=== PATIENT | male | born 1945 ===

== ENCOUNTER 2024-09-30 08:19 | Outpatient (AMB) | payer OTHER, SELFPAY ==
--- NOTE | 2024-09-30 08:28 | A.OFFVIS_ITS ---
Vital Signs 09/30/24 08:29 Height 5 ft 9 in Weight 258 lb 6.108 oz BMI 38.2 BP 128/64 Blood Pressure Location Lt brachial Position Sitting Pulse 68 Pulse Source Pulse Oximeter Pulse Oximetry (%) 96 Oxygen Delivery Method Room Air Intake Visit Reasons: arthritis/Tel # Inactive Intake Note: Patient presents follow up on arthritis today. He states the pain is in his hands, lower back, knees, progressively getting worse. Allergies NSAIDS (Non-Steroidal Anti-Inflamma Adverse Reaction (Unknown, Verified 09/30/24 08:37) rectal bleeding HPI HPI arthritis/Tel # Inactive: Details: He had no benefit on low-dose gabapentin up titrated to 200 mg in the morning and 100 mg at night with directions from PCP. He continues to have pain in multiple joints especially his knees and lower back. Review of Systems Const All systems reviewed & are unremarkable except as noted in HPI and below Physical Exam Vital Signs: Last Vital Signs Pulse 68 09/30/24 08:29 BP 128/64 09/30/24 08:29 Pulse Ox 96 09/30/24 08:29 Oxygen Delivery Method Room Air 09/30/24 08:29 BMI result Body Mass Index 38.2 Office Procedures AMB Joint Injection/Aspiration Joint Injection/Aspiration Primary Site: right knee Prep: site was prepped using aseptic technique Injected: 40 mg of, Kenalog, with 1 mL of and 1% plain lidocaine Procedure: The patient tolerated the procedure well Coding 08136 - Large joint Additional procedure code (CPT) needed (Modifier needed for bilateral procedure) AMB Joint Injection/Aspiration Joint Injection/Aspiration Primary Site: left knee Prep: site was prepped using aseptic technique Injected: 40 mg of, Kenalog and with 1 mL of Procedure: The patient tolerated the procedure well Coding 82391 - Large joint Additional procedure code (CPT) needed (modifier needed) Office Meds Kenalog 40 mg/mL suspension for injection Performing Provider: Ashu Collier MD Performing Location: [facility] Administered by: Ashu Collier MD on 10/01/24 12:28 Dose Route Admin Location Dispensed Lot Number Expiration Date [facility] 40 mg intra-articular [place] [id number] [employer] lidocaine (PF) 10 mg/mL (1 %) injection solution Performing Provider: Ashu Collier MD Performing Location: [facility] Administered by: Ashu Collier MD on 10/01/24 12:28 Dose Route Admin Location Dispensed Lot Number Expiration Date [facility] Representative 10 mg Infiltration 2 mL [id number] [employer] Kenalog 40 mg/mL suspension for injection Performing Provider: Ashu Collier MD Performing Location: [facility] Administered by: Ashu Collier MD on 10/01/24 12:28 Dose Route Admin Location Dispensed Lot Number Expiration Date [facility] Representative 40 mg intra-articular 1 mL AP [id number] [employer] lidocaine (PF) 10 mg/mL (1 %) injection solution Performing Provider: Ashu Collier MD Performing Location: [facility] Administered by: Ashu Collier MD on 10/01/24 12:28 Dose Route Admin Location Dispensed Lot Number Expiration Date [facility] Representative 10 mg Infiltration 2 mL [id number] [facility] Assessment & Plan Assessment & Plan (1) Generalized osteoarthritis: Comment: He has osteoarthritis affecting his hands, bilateral knees and L-spine. He is agreeable to try bilateral knee cortisone injections this visit. We will consider higher dose of gabapentin next visit to treat generalized pain from ost eoarthritis as it is indicated to treat chronic pain from osteoarthritis affecting the knees and back. Code(s): M15.9 - Polyosteoarthritis, unspecified Category: Medical Plan: Bilateral knee cortisone injections were given this visit I will consider starting gabapentin 300 mg b.i.d. and up titrating as he tolerates to better control back and knee pain next visit Return to clinic in 3 months (2) Osteoarthritis of knees, bilateral: Comment: Pain is uncontrolled. Code(s): M17.0 - Bilateral primary osteoarthritis of knee Category: Medical Qualifiers: Osteoarthritis type: primary Qualified Code(s): M17.0 - Bilateral primary osteoarthritis of knee Plan: Bilateral knee cortisone injections given this visit Return to clinic in 3 months (3) Lumbar spondylosis: Comment: Failed Tylenol, PT for back strengthening, L-spine cortisone injections and radiofrequency ablation treated by pain management. He did not have benefit on low-dose gabapentin. Contraindication to oral NSAIDs due to history of IBD. Code(s): M47.816 - Spondylosis without myelopathy or radiculopathy, lumbar region Category: Medical Plan: I will consider prescribing higher dose of gabapentin next visit. He prefers to have cortisone injections this visit to relieve knee pain. Return to clinic in 3 months. (4) Gout: Comment: Controlled on allopurinol Code(s): M10.9 - Gout, unspecified Category: Medical Qualifiers: Gout site: unspecified site Gout etiology: unspecified cause Director Of Respiratory Therapy nicity: chronic Presence of tophus: without tophus Qualified Code(s): M1A.9XX0 - Chronic gout, unspecified, without tophus (tophi) Plan: Continue allopurinol 100 mg daily prescribed by PCP. I recommend checking uric acid level and liver function test for disease and drug monitoring, respectively, yearly. (5) Other terminal manager (current) drug therapy: Code(s): Z79.899 - Other terminal manager (current) drug therapy Category: Medical Plan: See above Orders: Orders AMB Joint Injection/Aspiration 09/30/24 M17.0 - Bilateral primary osteoarthritis of knee AMB Joint Injection/Aspiration 09/30/24 M17.0 - Bilateral primary osteoarthritis of knee Coding Level of Care Code Est Pt Level 4 (28419) Complex EM visit Add On G2211 Diagnoses Generalized osteoarthritis M15.9 Primary osteoarthritis of both knees M17.0 Osteoarthritis type: primary Lumbar spondylosis M47.816 Chronic gout without tophus, unspecified cause, unspecified site M1A.9XX0 Gout site: unspecified site Gout etiology: unspecified cause Chronicity: chronic Presence of tophus: without tophus Other terminal manager (current) drug therapy Z79.899 CPT Codes Coding - 54717 Large joint: 12154 - Large joint ([id number]) Coding - 58722 Large joint: 69589 - Large joint ([id number])
[2024-09-30 08:29] VITALS: BP 128/64; PULSE 68; O2SAT 96; BMI 38.2
== END 2024-09-30 09:14 | disposition home or self-care (01) ==
PROVIDERS: Visit Provider Internal Medicine Rheumatology
DX: M17.0 Bilateral primary osteoarthritis of knee (principal); M47.816 Spondylosis without myelopathy or radiculopathy, lumbar region; M1A.9XX0 Chronic gout, unspecified, without tophus (tophi); Z79.899 Other long term (current) drug therapy
CPT/HCPCS: 20610; 99214

== ENCOUNTER → 2024-09-30 08:19 | Outpatient (BNVA) | payer OTHER, SELFPAY | PROVIDERS: Visit Provider Internal Medicine Rheumatology | DX: M17.0 Bilateral primary osteoarthritis of knee (principal); M47.816 Spondylosis without myelopathy or radiculopathy, lumbar region; M1A.9XX0 Chronic gout, unspecified, without tophus (tophi); Z79.899 Other long term (current) drug therapy | CPT/HCPCS: 20610; J2003; J3300 ==

== ENCOUNTER 2024-12-29 08:21 | Outpatient (AMB) | payer OTHER, SELFPAY ==
[2024-12-29 08:23] VITALS: BP 120/70; PULSE 47; O2SAT 95; BMI 37.2
--- NOTE | 2024-12-29 08:23 | MHC.OFFVIS ---
Vital Signs 12/29/24 08:23 Height 5 ft 9 in Weight 252 lb 3.341 oz BMI 37.2 BP 120/70 Blood Pressure Location Lt brachial Position Sitting Pulse 47 L Pulse Source Pulse Oximeter Pulse Oximetry (%) 95 Oxygen Delivery Method Room Air Intake Visit Reasons: 3 mo follow up Intake Note: Patient presents follow up on arthritis today. Pt states that cortisone shot in right leg is starting to wear off. Allergies NSAIDS (Non-Steroidal Anti-Inflamma Adverse Reaction (Unknown, Verified 12/29/24 08:26) rectal bleeding HPI HPI 3 mo follow up: Details: Right knee pain started a week ago. He had bronchitis 2 weeks ago and has recovered. He is not experiencing any pain in his left knee. When he is experiencing knee pain he is also experiencing hip and back pain. At this time he has right hip pain. Review of Systems Const All systems reviewed & are unremarkable except as noted in HPI and below Physical Exam Vital Signs: Last Vital Signs Pulse 47 L 12/29/24 08:23 BP 120/70 12/29/24 08:23 Pulse Ox 95 12/29/24 08:23 Oxygen Delivery Method Room Air 12/29/24 08:23 BMI result Body Mass Index 37.2 Const Other: General: Comfortable CVS: RRR Respiratory: clear to auscultation bilaterally. Good respiratory effort Skin: No lesions seen MSK: Tender to palpate right joint line. Limited knee flexion. Office Procedures AMB Joint Injection/Aspiration Joint Injection/Aspiration Details: Right knee joint Prep: site was prepped using aseptic technique Injected: 40 mg of, Kenalog, with 1 mL of and 1% plain lidocaine Procedure: The patient tolerated the procedure well. Postprocedure protocol was discussed with patient. Coding 13688 - Large joint Procedure code (CPT) selection complete Office Meds lidocaine (PF) 10 mg/mL (1 %) injection solution Performing Provider: Ashu Collier MD Performing Location: [facility] Administered by: Ashu Collier MD on 12/30/24 08:07 Dose Route Admin Location Dispensed Lot Number Expiration Date [facility] Critical Care Nurse 10 mg Infiltration 2 mL [id number] [facility] Kenalog 40 mg/mL suspension for injection Performing Provider: Ashu Collier MD Performing Location: [facility] Administered by: Ashu Collier MD on 12/30/24 08:07 Dose Route Admin Location Dispensed Lot Number Expiration Date [facility] 40 mg intra-articular 1 mL [id number] [employer] Assessment & Plan Assessment & Plan (1) Osteoarthritis of knees, bilateral: Comment: Pain is uncontrolled in right knee. History: He received bilateral knee cortisone injections 09/2024 Code(s): M17.0 - Bilateral primary osteoarthritis of knee Category: Medical Qualifiers: Osteoarthritis type: primary Qualified Code(s): M17.0 - Bilateral primary osteoarthritis of knee Plan: Patient received right knee cortisone injection Orders: Orders AMB Joint Injection/Aspiration 12/29/24 M17.0 - Bilateral primary osteoarthritis of knee Coding Level of Care Code Est Pt Level 3 (39027) Complex EM visit Add On G2211 Diagnoses Primary osteoarthritis of both knees M17.0 Osteoarthritis type: primary CPT Codes Coding - 98316 Large joint: 92426 - Large joint ([id number])
--- OUTSIDE RECORDS SUMMARY | 2024-12-29 08:43 | XMS_ITS | Patient Health Record ---
Author Organization [facility] Address [address] [facility] [place] [address] Care Team Providers Care Rehabilitation Specialist Name Role Phone Brannon Calvert Primary Care Provider Mckinley Sigala Unavailable [phone] Allergies Allergen (clinical drug ingredient) Drug/Non Drug Allergy documented on EMR Reaction Allergy Type Onset Date Status ibuprofen Advil colitis flareups Drug Allergy Active ibuprofen Ibuprofen Unknown Drug Allergy Active Reason For Referral No Information Medications Medication SIG (Take, Route, Frequency, Duration) Notes Start Date End Date Status Tamsulosin HCl 0.4 MG 1 capsule 30 minut es after the same meal each day Orally Once a day for 30 day(s) 2 tab every fri/wed Active Vitamin C Active Vitamin D 200 iu Act russel Zinc 5mg Active Magnesium 133mg Acti ve Mesalamine Active zzzCompression Stockings 20-30mm Hg . . . for . Active Extra Depth Orthopedic Shoes, (1) Pair With (3) Pair Custom Heat Molded Multidensity Innersoles Dx: NIDDM/PVD(E11.51), Hammertoe Foot Deformity(M20.41,M20 .42), Preulcerative Skin Lesion(s)(L85.1) Wear Daily for 365 days 04/20/2024 Active Pioglitazone HCl 45 MG 1 tablet Orally O nce a day for 30 day(s) Not-Taking metFORMIN HCl 500 MG Orally 2 x a day Not-Taking Allopurinol 100 MG 1 tablet Orally Once a day for 30 day(s) Active Lantus SoloStar Not- Taking Atorvastatin Calcium 10 MG Orally Active Vitamin C Not-Taking aspirin baby Active Multi Vitamin Mens N ot-Taking Calcium 333mg Active Delzicol Not-Taking Pentasa 500 MG 2 capsules Orally bid Not-Taking Latanoprost 0.005 % Ophthalmic Not-Taking Levothyroxine Sodium 50 MCG Orally Not-Taking Levothyroxine Sodium .05mg 1tab Once a day Active Centrum Men Active Pravastatin Sodium 10 MG 1 tablet Orally Once a day Not-Taking Ciclopirox Olamine 0.77 % 1 application to affected area Externally Twice a day for 30 days PRN Active Eye Drops Temp Active Lisinopril 20 MG 1 tablet Orally Once a day Active Immunizations Vaccine Route Administration Date Status Comme nts COVID-19 Pfizer BioNTech Vaccine Unknown 06/22/2022 Administered 1st 12/06/2020 2nd 12/20/2020 3rd 09/07/2021 Influenza Unknown 10/27/2018 Refused Influenza Unknown 07/10/2022 Administered Social History Tobacco Use: Social History Observation Description Date Details (start date - stop date) Former Smoker NA - NA Tobacco Use/Smoking Question Answer Notes Are you a: former smoker Additional Findings: Tobacco Non-User Current no n-smoker Alcohol Screen Question Answer Notes Did you have a drink containing alcohol in the p ast year? Yes Points 0 Interpretation Negative Tobacco use other than smoking: Question Answer Notes Are you an other tobacco user? No Problems Problem Type SNOMED Code ICD Code Onset Dates Problem Status W/U Status Risk Notes Problem Acquired hammer toe of right foot (8592806823090 105) Other hammer toe(s) (acquired), right foot (M20.41) Active confirmed Unchanged Problem Type 2 diabetes mellitus with peripheral angiopathy (230303671) Type 2 diabetes mellitus with diabetic peripheral angiopathy without gangrene (E11.51) Active confirmed Problem Acquired hammer toe of left foot (8364404371245 103) Other hammer toe(s) (acquired), left foot (M20.42) Active confirmed Unchanged Vital Signs Blood pressure diastolic 75 mm Hg 10/08/2024 Height 5 ft 9 in in 10/08/2024 Blood pressure systolic 120 mm Hg 10/08/2024 Weight 240 lbs 10/08/2024 BMI 35.44 kg/m2 10/08/2024 Procedures Procedure Date Ordered Date Performed Result Body Sit e 32996-PIZCMML NAIL, 6 OR MORE 02/13/2024 N/A 11263-ESED SKIN LESIONS, 2 TO 4 02/13/2024 N/A 81959-XEMVGYH NAIL, 6 OR MORE 04/20/2024 N/A 68151-SYUO SKIN LESIONS, 2 TO 4 04/20/2024 N/A 39175-SINZAJZ NAIL, 6 OR MORE 07/02/2024 N/A 46770-PODU SKIN LESIONS, 2 TO 4 07/02/2024 N/A 47425-PHZUFFH NAIL, 6 OR MORE 10/08/2024 N/A 51588-KUAN SKIN LESIONS, 2 TO 4 10/08/2024 N/A Encounters Encounter Location Date Provider Diagnosis [address] [address] 02/13/2024 Mckinley Naomi Type 2 diabetes mellitus with diabetic peripheral angiopathy without gangrene E11.51 ; Onychomycosis B35.1 ; Pain of toe of right foot M79.674 and Pain of toe of left foot M79.[address] [address] 04/20/2024 Mckinley Salgado Type 2 diabetes mellitus with diabetic peripheral angiopathy without gangrene E11.51 ; Onychomycosis B35.1 ; Pain of toe of right foot M79.674 ; Pain of toe of left foot M79.675 ; Other hammer toe(s) (acquired), right foot M20.41 and Other hammer toe(s) (acquired), left foot M20.[address] [address] 07/02/2024 Mckinleyansley Salgado Type 2 diabetes mellitus with diabetic peripheral angiopathy without gangrene E11.51 ; Onychomycosis B35.1 ; Pain of toe of right foot M79.674 and Pain of toe of left foot M79.[address] [address] 10/08/2024 Mckinleyansley Salgado Type 2 diabetes mellitus with diabetic peripheral angiopathy without gangrene E11.51 ; Onychomycosis B35.1 ; Pain of toe of right foot M79.674 and Pain of toe of left foot M79.675 [facility] [place] [address] [place] [address] 06/22/2024 Mckinley Salgado Assessments Encounter Date Diagnosis (ICD Code) Assessment Notes Treatment Notes Treatment Clinical Notes Section Notes 02/13/2024 Type 2 diabetes mellitus with diabetic peripheral angiopathy without gangrene (ICD-10 - E11.51) 02/13/2024 Onychomycosis (ICD-10 - B35.1) 04/20/2024 Type 2 diabetes mellitus with diabetic peripheral angiopathy without gangrene (ICD-10 - E11.51) 04/20/2024 Onychomycosis (ICD-10 - B35.1) 07/02/2024 Type 2 diabetes mellitus with diabetic peripheral angiopathy without gangrene (ICD-10 - E11.51) 07/02/2024 Onychomycosis (ICD-10 - B35.1) 10/08/2024 Type 2 diabetes mellitus with diabetic peripheral angiopathy without gangrene (ICD-10 - E11.51) 10/08/2024 Onychomycosis (ICD-10 - B35.1) 07/02/2024 Pain of toe of right foot (ICD-10 - M79.674) 10/08/2024 Pain of toe of right foot (ICD-10 - M79.674) 04/20/2024 Pain of toe of right foot (ICD-10 - M79.674) 02/13/2024 Pain of toe of right foot (ICD-10 - M79.674) 02/13/2024 Pain of toe of left foot (ICD-10 - M79.675) 04/20/2024 Pain of toe of left foot (ICD-10 - M79.675) 07/02/2024 Pain of toe of left foot (ICD-10 - M79.675) 10/08/2024 Pain of toe of left foot (ICD-10 - M79.675) 04/20/2024 Other hammer toe(s) (acquired), right foot (ICD-10 - M20.41) Patient Educated with: DIABETIC FOOT CARE INSTRUCTIONS.p df (DIABETIC FOOT CARE INSTRUCTIONS.p df) 04/20/2024 Other hammer toe(s) (acquired), left foot (ICD-10 - M20.42) 07/02/2024 Other 10/08/2024 Other Plan Of Treatment Pending Test Test Name Order Date X ray : Foot, left 3V 10/27/2018 X ray : Foot, right 3V 10/27/2018 13629-RJTZDPR NAIL, 6 OR MORE 10/08/2024 51458-UWDBUTN NAIL, 6 OR MORE 10/28/2023 14739-AWXTAHB NAIL, 6 OR MORE 02/13/2024 92544-ACWUMPO NAIL, 6 OR MORE 04/20/2024 09848-KLOAMNV NAIL, 6 OR MORE 07/02/2024 30989-MYWXKDS NAIL, 6 OR MORE 11/17/2018 39631-YAFESLI NAIL, 6 OR MORE 01/19/2019 47511-GOIEFPG NAIL, 6 OR MORE 04/06/2019 55903-RFNVATX NAIL, 6 OR MORE 08/10/2019 05809-GJRTDWC NAIL, 6 OR MORE 12/17/2019 20495-KWLAHYA NAIL, 6 OR MORE 02/22/2020 55010-XEDGLNB NAIL, 6 OR MORE 04/25/2020 41949-RYWFCAC NAIL, 6 OR MORE 07/25/2020 03182-YMMQECW NAIL, 6 OR MORE 09/29/2020 77139-NYRRFRK NAIL, 6 OR MORE 12/01/2020 42116-EWAJRNM NAIL, 6 OR MORE 02/02/2021 33069-EHYUWZZ NAIL, 6 OR MORE 05/08/2021 50424-NBTRRFD NAIL, 6 OR MORE 07/24/2021 39492-ZKZUEFL NAIL, 6 OR MORE 09/28/2021 09653-UZTTOMC NAIL, 6 OR MORE 12/11/2021 45024-IYIZCHX NAIL, 6 OR MORE 02/22/2022 88428-XDTUWSW NAIL, 6 OR MORE 04/26/2022 18767-IIICTMR NAIL, 6 OR MORE 07/12/2022 55215-MHGYNZP NAIL, 6 OR MORE 09/27/2022 05533-EVCFILL NAIL, 6 OR MORE 06/06/2015 44517-PGRMURM NAIL, 6 OR MORE 09/19/2015 69795-RIRJXWF NAIL, 6 OR MORE 12/19/2015 48790-CPYYLOQ NAIL, 6 OR MORE 03/22/2016 69919-QFALXUR NAIL, 6 OR MORE 07/02/2016 20770-KLNESSV NAIL, 6 OR MORE 10/04/2016 84516-XVBVNHI NAIL, 6 OR MORE 01/14/2017 99615-XJKTQRN NAIL, 6 OR MORE 04/18/2017 40573-MWMECLJ NAIL, 6 OR MORE 07/18/2017 72579-JOLJGNM NAIL, 6 OR MORE 10/28/2017 44557-WJIXICI NAIL, 6 OR MORE 01/13/2018 24321-GKWZWEO NAIL, 6 OR MORE 03/24/2018 57861-OCARLXS NAIL, 6 OR MORE 05/29/2018 76265-BKEKWCY NAIL, 6 OR MORE 08/11/2018 11555-SXUYZBY NAIL, 6 OR MORE 12/10/2022 55992-BYDYWLJ NAIL, 6 OR MORE 02/21/2023 89669-MSHUYXN NAIL, 6 OR MORE 05/09/2023 83019-CXCHGFI NAIL, 6 OR MORE 07/22/2023 02852-TLTR SKIN LESIONS, 2 TO 4 07/22/20 23 62063-NQMG SKIN LESIONS, 2 TO 4 05/09/20 23 92251-XELM SKIN LESIONS, 2 TO 4 02/22/20 23 03113-VZRN SKIN LESIONS, 2 TO 4 12/10/19 23 18154-ARAD SKIN LESIONS, 2 TO 4 09/27/20 22 89029-ULTS SKIN LESIONS, 2 TO 4 07/02/20 24 89869-YVVN SKIN LESIONS, 2 TO 4 04/20/20 24 40626-LMJA SKIN LESIONS, 2 TO 4 02/13/20 24 43542-FRIT SKIN LESIONS, 2 TO 4 10/28/19 24 70076-SOJW SKIN LESIONS, 2 TO 4 10/08/20 24 Next Appt Details Provider Name:Mckinley Salgado , 01/11/2025 03:15:00 PM, [address] [facility], [place], [address], Insurance Providers Payer Name Payer Address Payer Phone Subscriber Number Group Number Insured Name Patient Relationship to Insured Coverage Start Date Coverage End Date [employer] Medicare Advantage [facility] [address] [place] [address] [id number] Brannon Canela Self - patient is the insured Medical (General) History Medical History History ICD Code Cataracts Crohns disease Arthritis Cholesterol Hypertension Thyroid type II diabetes Surgical History Surgery Date(Month/Year) appendectomy 2009 eye surgery - eyelidectomy 2010 [place] cataract surgery 10/23/22,11/06/22
--- OUTSIDE RECORDS SUMMARY | 2024-12-29 08:43 | XMS_ITS | Encounter Summary ---
Author Name [facility] [place] Organization [facility] [place] Address [address] [place] [address] Care Team Providers Care Cs Associate Name Role Phone DYLAN GRANDA Primary Care Provider Unavail le Insurance Providers: All historical and current Section Date Range: From patient's date of to the date document was created. This section includes the names of all active insurance providers for the patient. Insurance Provider Type of Coverage Plan Name Start of Policy Coverage End of Policy Coverage Group Number Member ID Insurance Provider's Telephone Number Policy Novoa's Name Patient's Relationship to Policy Novoa [facility] [place] MEDICARE ADVANTAGE MCR ([facility]) Aug 20, 2014 [id number] [phone] PATIENT [facility] ([facility]) MEDICARE ADVANTAGE MCR ([facility]) Aug 20, 2014 [id number] PATIENT [facility] ([facility]) MEDICARE ADVANTAGE MCR ([facility]) Aug 20, 2014 [id number] PATIENT Selected Encounter This section includes the information on record at [place] for the Encounter. Date/Time Encounter Type Encounter Description Reason Provider Source Dec 28, 2024 05:02 PM SPECIAL SUPPLIES PHYS/QHP RESPIRATORY THERAPY ICD-10-CM G47.30 Sleep apnea, unspecified RUTH ANN LEWIS TSShahab IHE Encounter Template Text not used by [place] Assessments - Encounter Diagnoses This section includes the primary and secondary diagnoses documented for the Encounter. Date/Time Primary/Secondary Diagnosis Diagnosis Name Provider Source Dec 28, 2024 05:02 PM PRIMARY Sleep apnea, unspecified JOSHUA,BE [facility] Plan of Treatment: Future Appointments (+ 6 months) and Future Tests (+/- 45 days) The Plan of Treatment section includes future care activities for the patient from all [place] treatmentfacilities. This section includes future appointments and future orders which are active, pending or scheduled. Future Appointments This section includes appointments that were scheduled to occur 6 months from the date of the Encounter, up to a maximum of 20 appointments. The data comes from all [place] treatment facilities. Appointment Date/Time Appointment Type Appointme nt Facility Name Jun 08, 2025 09:00 AM AMBULATORY - MEDICINE [facility] Advance Directives: All historical and current Section Date Range: From patient's date of to the date document was created. This section includes ALL of a patient's completed or amended [place] Advance and Rescinded Directives. The entries below indicate that a directive exists for the patient, but an actual copy is not included with this document. The data comes from all [place] facilities. Date Advance Directives Provider Source Jul 09, 2010 ADVANCE DIRECTIVE HA [facility] Encounter Notes: All associated encounter notes This section contains the clinical notes associated to the Encounter. Date/Time Encounter Note(s) Provider Source Dec 28, 2024 05:02 PM RESPIRATORY THERAP Y NOTE: LOCAL TITLE: RESPIRATORY THERAPY NOTE(BLANK) STANDARD TITLE: RESPIRATORY THERAPY NOTE DATE OF NOTE: DEC 28, 2024@17:02 ENTRY DATE: DEC 28, 2024@17:02:59 AUTHOR: YAZAN LEWIS EXP COSIGNER: URGENCY: STATUS: COMPLETED with sleep apnea requested CPAP supplies through [facility]. Supplies were ordered and Peytona was also sent written cleaning instructions, resupply recommendations and instructions, and contact information for this clinic. Compliance data follows this note. Brannon Canela 11/28/2024 - 12/27/2024 : 1945 Age: 79 years 6[place] Compliance Report Compliance Payor Standard Usage 11/28/2024 - 12/27/2024 Usage days 29/30 days (97%) >= 4 hours 28 days (93%) < 4 hours 1 days (3%) Usage hours 206 hours 50 minutes Average usage (total days) 6 hours 54 minutes Average usage (days used) 7 hours 8 minutes Median usage (days used) 7 hours 23 minutes Total used hours (value since last reset - 12/27/2024) 12,579 hours AirSense 10 AutoSet Serial number [id number] Mode AutoSet Min Pressure 6 cmH2O Max Pressure 10 cmH2O EPR Fulltime EPR level 1 Response Soft Therapy Pressure - cmH2O Median: 9.9 95th percentile: 10.0 Maximum: 10.0 Leaks - L/min Median: 0.0 95th percentile: 8.0 Maximum: 31.3 Events per hour AI: 0.3 HI: 0.7 AHI: 1.0 Apnea Index Central: 0.0 Obstructive: 0.3 Unknown: 0.0 RERA Index 1.1 Kyler-Quiñonez respiration (average duration per night) 0 minutes (0%) Usage - hours Printed on 12/28/2024 - Giphy version 4.48.0-6.0 Page 1 of Chrissy /rodolfo/ YAZAN LEWIS BA, PEDIATRIC REGISTERED NURSE, RPFT RESPIRATORY THERAPIST Signed: 12/28/2024 17:15 YAZAN LEWIS [facility]
--- OUTSIDE RECORDS SUMMARY | 2024-12-29 08:44 | XMS_ITS ---
Author Organization [facility] Gaby resendiz [place] Address [address] [facility] [place] [address] Care Team Providers Care Model Engine Mechanic Name Role Phone Brannon Calvert Primary Care Provider Mckinley Sigala Unavailable [phone] Allergies Allergen (clinical drug ingredient) Drug/Non Drug Allergy documented on EMR Reaction Allergy Type Onset Date Status ibuprofen Advil colitis flareups Drug Allergy Active ibuprofen Ibuprofen Unknown Drug Allergy Active REASON FOR VISIT At Risk Footcare, Painful Nail(s) aggrevated by shoes and causing difficulty standing/walking Medications Medication SIG (Take, Route, Frequency, Duration) Notes Start Date End Date Status Lantus SoloStar Not- Taking Vitamin C Not-Taking Multi Vitamin Mens N ot-Taking Delzicol Not-Taking Pravastatin Sodium 10 MG 1 tablet Orally Once a day Not-Taking Pentasa 500 MG 2 capsules Orally bid Not-Taking Latanoprost 0.005 % Ophthalmic Not-Taking Levothyroxine Sodium 50 MCG Orally Not-Taking Pioglitazone HCl 45 MG 1 tablet Orally O nce a day for 30 day(s) Not-Taking metFORMIN HCl 500 MG Orally 2 x a day Not-Taking Vitamin C Active Vitamin D 200 iu Act russel Zinc 5mg Active zzzCompression Stockings 20-30mm Hg . . . for . Active Extra Depth Orthopedic Shoes, (1) Pair With (3) Pair Custom Heat Molded Multidensity Innersoles Dx: NIDDM/PVD(E11.51), Hammertoe Foot Deformity(M20.41,M20 .42), Preulcerative Skin Lesion(s)(L85.1) Wear Daily for 365 days 04/20/2024 Active Tamsulosin HCl 0.4 MG 1 capsule 30 minut es after the same meal each day Orally Once a day for 30 day(s) 2 tab every fri/wed Active Magnesium 133mg Acti ve Mesalamine Active Levothyroxine Sodium .05mg 1tab Once a day Active Lisinopril 20 MG 1 tablet Orally Once a day Active aspirin baby Active Calcium 333mg Active Centrum Men Active Ciclopirox Olamine 0.77 % 1 application to affected area Externally Twice a day for 30 days PRN Active Eye Drops Temp Active Allopurinol 100 MG 1 tablet Orally Once a day for 30 day(s) Active Atorvastatin Calcium 10 MG Orally Active Social History Tobacco Use: Social History Observation [...] Are you an other tobacco user? No Vital Signs Height 5 ft 9 in in 10/08/2024 Weight 240 lbs 10/08/2024 BMI 35.44 kg/m2 10/08/2024 Blood pressure systolic 120 mm Hg 10/08/20 24 Blood pressure diastolic 75 mm Hg 024 Procedures Procedure Date Ordered Date Performed Result Body Sit e 05729-KNWHQJM NAIL, 6 OR MORE 10/08/2024 N/A 40111-UGCI SKIN LESIONS, 2 TO 4 10/08/2024 N/A Encounters Encounter Location Date Provider Diagnosis [facility] [address] [address] 10/08/2024 Mckinley Salgado Type 2 diabetes mellitus with diabetic peripheral angiopathy without gangrene E11.51 ; Onychomycosis B35.1 ; Pain of toe of right foot M79.674 and Pain of toe of left foot M79.675 Assessments Encounter Date Diagnosis (ICD Code) Assessment Notes Treatment Notes Treatment Clinical Notes Section Notes 10/08/2024 Type 2 diabetes mellitus with diabetic peripheral angiopathy without gangrene (ICD-10 - E11.51) 10/08/2024 Onychomycosis (ICD-10 - B35.1) 10/08/2024 Pain of toe of right foot (ICD-10 - M79.674) 10/08/2024 Pain of toe of left foot (ICD-10 - M79.675) 10/08/2024 Other Plan Of Treatment Pending Test Test Name Order Date 29727-FAJRMNS NAIL, 6 OR MORE 10/08/2024 12602-LXHF SKIN LESIONS, 2 TO 4 10/08/20 24 Next Appt Details Follow Up: prn, Reason: Provider Name:Mckinley Slagado , 01/11/2025 03:15:00 PM, [address] [place] [address], [id number], Procedure Notes * Category Sub-Category Detail Notes Debride Nail 6-10 Nail debridement Due to the cl inical pathology outlined in the exam findings, performance of this nail treatment is medically necessary as its management by an unskilled/untrained nonprofessional would put this patients foot and overall health at risk. Therefore, debridement to affected nail(s), as described in exam ( TA, T1, T3, T4, T5, T7, T8, T9), was performed exclusively by the physician of record to reduce/remove overall nail length, girth, thickness, subungual debris, and necrotic tissue, by manual and/or electrical means through the use of a nail nipper and/or dremel-type precision jig grinder, to a more viable healthy nail plate or bed tissue 6-10 nails in total. Silver nitrate was used for any petechial bleeding as necessary. Definitive antifungal treatment options, both pharmaceutical and surgical, have been reviewed and discussed with the patient. The patient solely prefers the use of intermittent/as needed professional debridement services for their nail condition and understands the need for additional periodic treatments to maintain effectiveness in symptomatic relief - 66727 Keratoma Treatment Parring or Cutting o f Benign Hyperkeratotic Lesion(s) (-56) 2-4 Lesions - Due to the at risk nature of the patients medical condition as documented in the exam findings, performance of this keratoderma treatment is medically necessary as its management by an unskilled/untrained nonprofessional would put this patients foot and overall health at risk. Therefore, the benign hyperkeratotic lesions, ( 4) in total, locations as stated and described in the exam ( Medial, IPJ, TA, Medial, IPJ, T5, Plantar, Heel(s), B/L ), were pared, and/or cut utilizing a sterile 15 blade, tissue nippers, and/or power dremel instrumentation by the physician of record - 45345, Q8 Progress Notes * Brannon CANELADOB:1945 (78 yo M)Acc No.[id number]:10/08/2024 Progress Note Patient:?Brannon CANELA Provider:?Mckinley Salgado DPM :1945???Age:78 Y???Sex:Male Robby e:10/08/2024 Address: [place], [id number] Pcp:Brannon Calvert Subjective: * Chief Complaints: * ???At Risk FootcarePainful N ail(s) aggrevated by shoes and causing difficulty standing/walking * HPI: ???At Risk footcare:?Pt States Last PCP Visit:?Date?08/04/2024 * ROS:?General/Constitutional:?Nausea?denies.?Vomiting?denies.?Hunger Thirst?denies.?Loss appetite?denies.?Chills?denies.?Fatigue?denies.?Fever?denies.?Night Sweats?denies.?Unexplained weight loss?denies.?Ophthalmologic:?Blurred vision?denies.?Red eye?denies.?HEENTM:?Dentures?denies.?Dizziness?denies.?Glasses/contacts?admits.?Retinopathy?de nies.?Blurred/double vision?denies.?TMJ?denies.?Discharge/drainage?denies.?Implants?denies.?Hard of hearing admits.?Difficulty chewing/swallowing/speaking?denies.?Nose bleeds?denies.?Sore mouth?denies.?Swollen glands?denies.?Respiratory:?On Oxygen?denies.?Pneumonia/pleurisy?denies.?Bronchitis?denies.?Emphysema?denies.?C oughing?denies.?Cough blood?denies.?Shortness of breath?denies.?Wheezing?denies.?Cardiovascular:?Pacemaker?denies.?MVP?denies.?WPW?denies.?CHF?denies.?Heart attack?denies.?Septal defect?denies.?Rapid beat?denies.?Chest pain ?denies.?Atrial Fib.?denies.?Murmur/Palpitations?denies.?Gastrointestinal:?Hemorrhoids?denies.?Stomach/Abdominal pain?denies.?Dark blood stool?denies.?Irritable bowel ?admits.?Constipation?denies.?Diarrhea?denies.?Vomiting?denies.?Hematology:?Swelling?admits.?Bruising?denies.?Bleeding problem?denies.?Genitourinary:?Blood urine?denies.?Frequent/Painfu/urination/bladder control?denies.?Kidney stones?admits.?Infection (UTI)?denies.?Nephropathy?denies.?Musculoskeletal:?Hammertoes?admits.?Bunions?denies.?Scoliosis/kyphosis?denies.?Muscle cramps / walking?denies.?Generalized aches and pains?denies.?Weakness?denies.?Integ.:?Merida?denies.?Scars?denies.?Corns/calluses?admits.?Ingrown nails?admits.?Painful nails?admits.?Rashes?denies.?Neurologic:?Difficulty sleeping?denies.?Bipolar?denies.?Brain disorder?denies.?Balance trouble?denies.?Confusion?denies.?Fainting/blackouts?denies.?Headache?denies.?Tr emors?denies.? * Medical History:? * Surgical History:?appendecto my 2010eye surgery - eyelidectomy 2011Bil cataract surgery 10/23/22,11/06/22 * Hospitalization/Major Diagno stic Procedure:?Denies Past Hospitalization * Family History:?Mother: dece ased, diagnosed with Other malignant neoplasm of unspecified site.?Father: , diagnosed with Unspecified heart disease.? * Social History:?Tobacco Use:?Tobacco Use/Smoking?Are you a:?former smoker ?Additional Findings: Tobacco Non-User?Current non-smoker ?Tobacco use other than smoking?Are you an other tobacco user??No ???Drugs/Alcohol:?Drugs?Have you used drugs other than those for medical reasons in the past 12 months??No ?Alcohol Screen?Did you have a drink containing alcohol in the past year??Yes ?Points?0 ?Interpretation?Negative ???Miscellaneous:?Caffeine: yes, frequency:, 10-12 oz 2 cups per day coffee. ?Children: yes. ?Exercise: no. ?Marital status: . 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 * Medications:?TakingAllopurin ol 100 MG Tablet 1 tablet Orally Once a day Atorvastatin Calcium 10 MG Tablet Orally aspirin baby Calcium 333mg Centrum Men Ciclopirox Olamine 0.77 % Cream 1 application to affected area Externally Twice a day , Notes to Pharmacist: PRNEye Drops , Notes to Pharmacist: TempLisinopril 20 MG Tablet 1 tablet Orally Once a day Levothyroxine Sodium .05mg 1tab Once a day Magnesium 133mg Mesalamine Tamsulosin HCl 0.4 MG Capsule Extended Release 24 Hour 1 capsule 30 minutes after the same meal each day Orally Once a day , Notes to Pharmacist: 2 tab every sun/wedVitamin C Vitamin D 200 iu Zinc 5mg zzzCompression Stockings 20- 30mm Hg 1 pair closed toe- knee high . . . Extra Depth Orthopedic Shoes, (1) Pair With (3) Pair Custom Heat Molded Multidensity Innersoles . Dx: NIDDM/PVD(E11.51), Hammertoe Foot Deformity(M20.41,M20.42), Preulcerative Skin Lesion(s)(L85.1) Wear Daily Taking Allopurinol 100 MG Tablet 1 tablet Orally Once a day Taking Atorvastatin Calcium 10 MG Tablet Orally Taking aspirin baby Taking Calcium 333mg Taking Centrum Men Taking Ciclopirox Olamine 0.77 % Cream 1 application to affected area Externally Twice a day , Notes to Pharmacist: PRNTaking Eye Drops , Notes to Pharmacist: TempTaking Lisinopril 20 MG Tablet 1 tablet Orally Once a day Taking Levothyroxine Sodium .05mg 1tab Once a day Taking Magnesium 133mg Taking Mesalamine Taking Tamsulosin HCl 0.4 MG Capsule Extended Release 24 Hour 1 capsule 30 minutes after the same meal each day Orally Once a day , Notes to Pharmacist: 2 tab every sun/wedTaking Vitamin C Taking Vitamin D 200 iu Taking Zinc 5mg Taking zzzCompression Stockings 20-30mm Hg 1 pair closed toe- knee high . . . Taking Extra Depth Orthopedic Shoes, (1) Pair With (3) Pair Custom Heat Molded Multidensity Innersoles . Dx: NIDDM/PVD(E11.51), Hammertoe Foot Deformity(M20.41,M20.42), Preulcerative Skin Lesion(s)(L85.1) Wear Daily Not-Taking/PRNPioglitazone HCl 45 MG Tablet 1 tablet Orally Once a day metFORMIN HCl 500 MG Tablet Orally 2 x a day Pentasa 500 MG Capsule Extended Release 2 capsules Orally bid Latanoprost 0.005 % Solution Ophthalmic Levothyroxine Sodium 50 MCG Tablet Orally Lantus SoloStar Vitamin C Multi Vitamin Mens Delzicol Pravastatin Sodium 10 MG Tablet 1 tablet Orally Once a day Medication List reviewed and reconciled with the patientNot-Taking/PRN Pioglitazone HCl 45 MG Tablet 1 tablet Orally Once a day Not-Taking/PRN metFORMIN HCl 500 MG Tablet Orally 2 x a day Not-Taking/PRN Pentasa 500 MG Capsule Extended Release 2 capsules Orally bid Not-Taking/PRN Latanoprost 0.005 % Solution Ophthalmic Not-Taking/PRN Levothyroxine Sodium 50 MCG Tablet Orally Not-Taking/PRN Lantus SoloStar Not-Taking/PRN Vitamin C Not-Taking/PRN Multi Vitamin Mens Not-Taking/PRN Delzicol Not-Taking/PRN Pravastatin Sodium 10 MG Tablet 1 tablet Orally Once a day Medication List reviewed and reconciled with the patient * Allergies:?Advil: colitis fl areupsIbuprofenyes[Allergies Verified] Objective: * Vitals:?Ht: 5 ft 9 in, Wt:24 0, BMI: 35.44, Shoe size:11.5, BP:120/75mm Hg, BS:not taken, Wt-k.86 kg. * Examination: ???Vascular: ?DP PULSES (B):?0/4, RIGHT , 1/4 , LEFT.?PT PULSES (B):? 0/4, B/L.?CAPILLARY FILL TIME:? delayed, all digits, B/L.?TROPHIC CONDITION-TEXTURE/ELASTICITY/TURGOR/HAIR GROWTH (B):? decreased, with sparse to absent hair growth, B/L.?TEMPERTURE GRADIENT (C):? decreased, cool to cool, proximal to distal, B/L.?PIGMENTATION:? rubrous, B/L.?EDEMA (C):? 2/4, pitting, without aching pain, B/L, Leg(s), Ankle(s), Feet.?CLAUDICATION (C):?denies, B/L.?REST PAIN:?denies, B/L.?Nails: ?NAILS are:?Elongated, overgrown, dystrophic, lytic, greater than 3mm thick, discolored and friable with crumbly malodorous subungual debris, with pain on palpation, TA, T1, T3, T4, T5, T7, T8, T9, all other nails not described with characteristics as possessing mycosis are elongated, overgrown, and dystrophic.?Dermatologic: ?SKIN FINDINGS:?Skin exam reveals Keratotic lesion(s) located at, Medial, IPJ, TA, Medial, IPJ, T5, Plantar, Heel(s), B/L .? Assessment: * Assessment: 1.?Type 2 diabetes mellitus with diabetic peripheral angiopathy without gangrene - E11.51 (Primary)???2.?Onychomycosis - B35.1???3.?Pain of toe of right foot - M79.674???4.?Pain of toe of left foot - M79.675??? Plan: * Treatment: 2.?Onychomycosis?Procedure: [id number] NAIL, 6 OR MORE * Procedures:?Debride Nail 6-10:?Nail debridement?Due to the clinical pathology outlined in the exam findings, performance of this nail treatment is medically necessary as its management by an unskilled/untrained nonprofessional would put this patients foot and overall health at risk. Therefore, debridement to affected nail(s), as described in exam (?TA,?T1,?T3,?T4,?T5,?T7,?T8,?T9), was performed exclusively by the physician of record to reduce/remove overall nail length, girth, thickness, subungual debris, and necrotic tissue, by manual and/or electrical means through the use of a nail nipper and/or dremel-type precision jig grinder, to a more viable healthy nail plate or bed tissue 6- 10 nails in total. Silver nitrate was used for any petechial bleeding as necessary. Definitive antifungal treatment options, both pharmaceutical and surgical, have been reviewed and discussed with the patient. The patient solely prefers the use of intermittent/as needed professional debridement services for their nail condition and understands the need for additional periodic treatments to maintain effectiveness in symptomatic relief - 01029.?Keratoma Treatment:?Parring or Cutting of Benign Hyperkeratotic Lesion(s)?(-56) 2-4 Lesions - Due to the at risk nature of the patients medical condition as documented in the exam findings, performance of this keratoderma treatment is medically necessary as its management by an unskilled/untrained nonprofessional would put this patients foot and overall health at risk. Therefore, the benign hyperkeratotic lesions, ( 4) in total, locations as stated and described in the exam (?Medial,?IPJ,?TA,?Medial,?IPJ,?T5,?Plantar,?Heel(s),?B/L?), were pared, and/or cut utilizing a sterile 15 blade, tissue nippers, and/or power dremel instrumentation by the physician of record - 24999, Q8.? * Procedure Codes:?28411 DEBRI DE NAIL, 6 OR MORE, Modifiers: XS 28037 TRIM SKIN LESIONS, 2 TO 4, Modifiers: XS , Q8 * Follow Up:?prn * Images: * Sign off status: Completed true * Provider:?Mckinley Salgado DPM Date:?2023 Generated for Amna arias/Linda/Harvey on:?12/29/2024 08:43 AM EDT History and Physical Notes * HPI (History of Present Illness) Category Sub-Category Detail Notes Category Not es At Risk footcare Pt States Last PCP Visit: Date: 4 Examination Category Sub-Category Detail Notes Category Not es Dermatologic SKIN FINDINGS: Skin exam reveal s Keratotic lesion(s) located at, Medial, IPJ, TA, Medial, IPJ, T5, Plantar, Heel(s), B/L Vascular DP PULSES (B): 0/4, RIGHT , 1/4 , LEFT PT PULSES (B): 0/4, B/L CAPILLARY FILL TIME: delayed, all digits , B/L TEMPERTURE GRADIENT (C): decreased, cool to cool, proximal to distal, B/L TROPHIC CONDITION-TEXTURE/ELASTICITY/TURGOR/HAIR GROWTH (B): decreased, with sparse to absent hair gr owth, B/L EDEMA (C): 2/4, pitting, withou t aching pain, B/L, Leg(s), Ankle(s), Feet CLAUDICATION (C): denies, B/L REST PAIN: denies, B/L PIGMENTATION: rubrous, B/L Nails NAILS are: Elongated, overg rown, dystrophic, lytic, greater than 3mm thick, discolored and friable with crumbly malodorous subungual debris, with pain on palpation, TA, T1, T3, T4, T5, T7, T8, T9, all other nails not described with characteristics as possessing mycosis are elongated, overgrown, and dystrophic
--- OUTSIDE RECORDS SUMMARY | 2024-12-29 08:44 | XMS_ITS | Encounter Summary ---
Author Name [facility] [place] Organization [facility] [place] [facility] [place] Address [address] [place] [address] Care Team Providers Care Registered Radiographer Name Role Phone MICHA COLE Primary Care Provider Unava ilgodfrey Insurance Providers: All historical and current Section Date Range: From patient's date of to the date document was created. This section includes the names of all active insurance providers for the patient. Insurance Provider Type of Coverage Plan Name Start of Policy Coverage End of Policy Coverage Group Number Member ID Insurance Provider's Telephone Number Policy Novoa's Name Patient's Relationship to Policy Novoa [facility]) MEDICARE ADVANTAGE MCR ([facility]) Aug 20, 2014 [id number] PATIENT [facility] ([facility]) MEDICARE ADVANTAGE MCR ([facility]) Aug 20, 2014 [id number] PATIENT [facility] ([facility]) MEDICARE ADVANTAGE MCR ([facility]) Aug 20, 2014 [id number] [phone] PATIENT Selected Encounter This section includes the information on record at [place] for the Encounter. Date/Time Encounter Type Encounter Description Reason Provider Source Aug 17, 2024 10:00 AM HEARING AID REPAIR/MODIFYING AUDIOLOGY ICD-10-CM Z46.1 Encounter for fitting and adjustment of hearing aid PATRICK CRISTINA Jose Encounter Template Text not used by [place] Assessments - Encounter Diagnoses This section includes the primary and secondary diagnoses documented for the Encounter. Date/Time Primary/Secondary Diagnosis Diagnosis Name Provider Source Aug 17, 2024 11:25 AM PRIMARY Encounter for fitting and adjustment of hearing aid JUDITH ZUÑIGA [facility] Aug 17, 2024 11:25 AM SECONDARY Sensorineural hearing loss, bilateral JUDITH ZUÑIGA MARY [facility] Advance Directives: All historical and current Section Date Range: From patient's date of to the date document was created. This section includes ALL of a patient's completed or amended [place] Advance and Rescinded Directives. The entries below indicate that a directive exists for the patient, but an actual copy is not included with this document. The data comes from all [place] facilities. Date Advance Directives Provider Source Jul 09, 2010 ADVANCE DIRECTIVE HA REYNOSO [facility] Encounter Notes: All associated encounter notes This section contains the clinical notes associated to the Encounter. Date/Time Encounter Note(s) Provider Source Aug 17, 2024 07:31 AM AUDIOLOGY NOTE: LOCAL TITLE: AUDIOLOGY HEALTH TERRITORY SALES MANAGER MEDICAL STANDARD TITLE: AUDIOLOGY NOTE DATE OF NOTE: AUG 17, 2024@07:31 ENTRY DATE: AUG 17, 2024@07:31:41 AUTHOR: SELENE ZUÑIGA EXP COSIGNER: PATRICK CRISTINA URGENCY: STATUS: COMPLETED August 17, 2024 History/Background: Machipongo was seen for a hearing aid follow up, unaccompanied. The Mach[place] presented today requesting maintenance on his hearing aids. The reported the hearing aids turn on/off occasionally after sitting on the couch or at the computer. Advised the [place] this is likely auto on/off to save battery life or sleep mode . Hearing aids: Shimon Evolv ETHEL BTEs Serial Numbers: [id number] Battery size: 13 Date Issued: 01/01/2023 Hearing aid check: Both hearing aids were cleaned and checked. Replaced size 3 thin tubes and kale covers. Biologic check was good. Both hearing aids were connected to [employer] to disable the auto on/off function, per the Veterans request. However, this option was unavailable for the hearing aids. Both hearing aids will be sent to the rental management trainee for repair, intermittent , and will be mailed directly to the [place] via [facility]. Additionally, the thin tubes and earmolds were given to the [place] per his request, so he can attach to the backup hearing aids he will be using in the meantime. Otoscopy: Clear canals. Plan: The [place] will follow up as needed. /rodolfo/ SELENE ZUÑIGA Audiology Health Brickmason Helper Signed: 08/17/2024 11:37 /rodolfo/ PATRICK Ramesh CCC-A CHIEF, AUDIOLOGY/DISTRICT SALES LEADER Cosigned: 08/17/2024 11:51 SELENE ZUÑIGA [facility]
--- OUTSIDE RECORDS SUMMARY | 2024-12-29 08:44 | XMS_ITS | Continuity of Care Document ---
Author Name [facility] Organization [facility] Care Team Providers Care Casing Tester Name Role Phone [facility] Unavailable Unavailable Problems Combined list of problems from Department of Defense and Veterans Affairs facilities. It does not include entries that were removed or entered in error. Problem Status Onset Date Problem Type Date of Resolution Comments Source Sleep apnea Active 006 Condition [place] Ulcerative colitis Active 003 Condition May 01, 2010 Entered By: MICHELLE CARRILLO RA Comment: Colonoscopies X 4: Ulcerative Colitis: 2008: Polyp X 1Jan 2010 Entered By: MICHELLE CARRILLO RA Comment: Fazal BARRIOS: [facility]: Stated he does not have UCAug 2016 Entered By: PRIYANK TALBERT Comment: Nov 2016-repeat colonoscopy- 3 benign polyps and no active UC-due again in 2019Jul 2018 Entered By: MIHIR FORTUNE Comment: GI- [place] Bilateral Cataracts Active Condition [facility] Chronic neck pain Active Condition Au 2017 Entered By: PRIYANK TALBERT Comment: treated by capsaicin cream [facility] Essential hypertension (SNOMED CT 29193636) Active Condition [place] Gout Active Condition Oct 21 Entered By: PRIYANK TALBERT Comment: Diagnosed by Dr. 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 Appiah [facility], Also referred to [facility] Dr. Treadwell 2015 Entered By: LUIS MIGUEL OCHOA Comment: MRI [facility] 08/2015 L3-L4 severe central spinal stenosis [facility] Microscopic hematuria Active Condition Jul 02, 2010 Entered By: MICHELLE CARRILLO RA Comment: Vanessa David MD: Urologist: YearlyYen 2016 Entered By: PRIYANK TALBERT Comment: Recent CT ABD/PELVIS with and without contrast did not show any kidney stones-January 2017 [place] Obesity * (ICD-9-CM 278.00) Active Condition [place] Opthalmology Active Condition May 10, 2020 Entered By: MIHIR FORTUNE Comment: Dr. Ritesh Purvis 2019 Entered By: QUENTIN CORONA Comment: Last Eye Exam 05/01/2020 [place] Osteoarthritis of knee Active Condition Jun 01, 2018 Entered By: PRIYANK TALBERT Comment: NEOS [facility] Outside PCP Active Condition May 10, 2020 Entered By: MIHIR FORTUNE Comment: Dr. Constantin Andrea [facility] Pure hypercholesterolemia * (ICD-9-CM 272.0) Active Condition [facility] Type 2 diabetes mellitus Active Condition May 12, 2019 Entered By: MIHIR FORTUNE Comment: PCP-Dr.Nathan Andrea [facility] Ulcerative colitis Active Condition [facility] -2008: Appendectomy Inactive Condition 12/25/2018 [place] Diabetes Mellitus Type II or unspecified * (ICD-9-CM 250.00) Inactive Condition 04/03/2015 [facility] [place] Diagnosis: ICD-10-CM G47.30 Sleep apnea, unspecified Active Diagnosis [facility] Diagnosis: ICD-10-CM Z46.1 Encounter for fitting and adjustment of hearing aid Active Diagnosis [facility] Diagnosis: ICD-10-CM M25.569 Pain in unspecified knee Active Diagnosis [facility] Diagnosis: ICD-10-CM Z00.01 Encounter for general adult medical exam w abnormal findings Active Diagnosis [place] Medications Combined list of outpatient medications from Department of Defense and Veterans Affairs facilities.Medications provided include 1) outpatient medications from the last 15 months, and 2) patient-reported medications. Medication Details Route Status Patient Instructions Prescription Expires Prescription Number Last Dispense Date Ordering Provider Order Date Order Qty Source ALLOPURINOL 300MG TAB TAKE ONE TABLET BY MOUTH ONCE DAILY FOR GOUT ORAL 05/01/2024 [id number] DOUGLASALEXANDRIA MABRY O 2022 90 [place] ASCORBIC ACID 500MG TAB TAKE TWO TABLETS BY MOUTH TWICE DAILY ORAL ACTIVE Tanvi TALBERT 2014 [place] ASPIRIN 81MG TAB,EC TAKE ONE TABLET BY MOUTH DAILY ORAL ACTIVE ZECHARIAH JENSEN [place] CALCIUM CARBONATE TAB TAKE 333MG BY MOUTH ONCE DAILY ORAL ACTIVE ALEXANDRIA COLE O 2021 [facility] CHOLECALCIF SYDNIE 25MCG (1,000UNIT) TAB TAKE ONE TABLET BY MOUTH DAILY ORAL ACTIVE ZECHARIAH JENSEN 2009 [place] CIPROFLOXAC IN HCL 500MG TAB TAKE ONE TABLET BY MOUTH TWICE DAILY FOR 7 DAYS FOR INFECTIO N ORAL 11/12/2023 [id number] ALEXANDRIA COLE O 2022 14 [facility] DORZOLAMIDE HCL 22.3MG/MARLYN LOL MALEATE 6.8MG/ML SOLN,OPH INSTILL 1 DROP INTO EACH EYE TWICE DAILY TO REDUCE PRESSURE IN THE EYE OPHTHA LMIC 04/25/2024 [id number] MONAE LACKEY 2022 20 [facility] LATANOPROST 0.005% SOLN,OPH INSTILL 1 DROP INTO EACH EYE AT BEDTIME FOR INCREASE D PRESSURE IN THE EYE OPHTHA LMIC 04/25/2024 [id number] MONAE LACKEY J 2022 10 [facility] LEVOTHYROXI NE NA 50MCG TAB (SYNTHROID) TAKE ONE TABLET BY MOUTH EVERY MORNING 30 MINUTES BEFORE BREAKFAS T FOR THYROID - TAKE ON AN EMPTY STOMACH WITH A FULL GLASS OF WATER EXCEPT TAKE 2 PILLS EVERY AND FRIDAY ORAL 06/10/2024 [id number] DOUGLAS, APOLINARI O 2022 108 [place] LISINOPRIL 30MG TAB TAKE ONE TABLET BY MOUTH ONCE DAILY TO CONTROL BLOOD PRESSURE CELIA KNAPP MD ORAL ACTIVE 04/22/2025 [id number] DOUGLAS, APOLINARI O 2023 90 [place] LISINOPRIL 30MG TAB TAKE ONE TABLET BY MOUTH ONCE DAILY TO CONTROL BLOOD PRESSURE CELIA KNAPP MD ORAL DISCONT INUED 02/05/2024 [id number] DOUGLAS, APOLINARI O 2022 90 [place] MAGNESIUM OXIDE TAB TAKE 133MG BY MOUTH ONCE DAILY ORAL ACTIVE DOUGLAS, APOLINARI O 2021 [facility] MESALAMINE 500MG CAP,SA TAKE TWO CAPSULES BY MOUTH TWICE DAILY ORAL ACTIVE 08/13/2025 [id number] DOUGLAS, APOLINARI O 2023 360 [place] MESALAMINE 500MG CAP,SA TAKE TWO CAPSULES BY MOUTH TWICE DAILY ORAL DISCONT INUED 06/10/2024 [id number] DOUGLAS, APOLINARI O 2022 360 [place] TAMSULOSIN HCL 0.4MG CAP TAKE ONE CAPSULE BY MOUTH ONCE DAILY TAKE HALF AN HOUR AFTER LAST MEAL OF THE DAY. ORAL DISCONT INUED (EDIT) 08/05/2024 [id number] DOUGLAS, APOLINARI O 2022 30 [place] TAMSULOSIN HCL 0.4MG CAP TAKE ONE CAPSULE BY MOUTH ONCE DAILY FOR ENLARGED PROSTATE TAKE HALF AN HOUR AFTER LAST MEAL OF THE DAY. ORAL 11/12/2024 [id number] DOUGLAS, APOLINARI O 2023 90 [place] ZINC 50MG (FROM SULFATE) CAP TAKE 1 CAPSULE BY MOUTH ONCE DAILY ORAL ACTIVE PETER COLELINARI O 2021 [facility] [place] [facility] Immunizations Combined list of available immunizations from the Department of Defense and Veterans Affairs facilities. Immunization Series Date Given Administered By Site Reaction Lot Number CVX Code Drug Coarse Wire Drawer Status Comments Source COVID-19 (MODERNA), MRNA, LNP-S, PF, 50 MCG/0.5 ML (AGES 12+ YEARS) 2022 312 complet ed [facility] INFLUENZA, UNSPECIFIED FORMULATION 2022 88 complet ed [facility] [place] [facility] COVID-19 (PFIZER), MRNA, LNP-S, BIVALENT BOOSTER, PF, 30 MCG/0.3 ML DOSE 1 2021 300 complet ed [facility] INFLUENZA VACCINE, QUADRIVALENT, ADJUVANTED 2021 205 complet ed [facility] COVID-19 (MODERNA), MRNA, LNP-S, PF, 100 MCG/0.5ML DOSE OR 50 MCG/0.25ML DOSE 3 2020 207 complet ed [facility] INFLUENZA VACCINE, QUADRIVALENT, ADJUVANTED 2020 205 complet ed [place] INFLUENZA, UNSPECIFIED FORMULATION 2020 88 complet ed [facility] COVID-19 (MODERNA), MRNA, LNP-S, PF, 100 MCG/0.5ML DOSE OR 50 MCG/0.25ML DOSE 2 2020 207 complet ed [facility] COVID-19 (MODERNA), MRNA, LNP-S, PF, 100 MCG/0.5ML DOSE OR 50 MCG/0.25ML DOSE 1 2020 207 complet ed [facility] INFLUENZA, INJECTABLE, QUADRIVALENT, PRESERVATIVE FREE 2018 150 complet ed Site: Left Deltoid [place] ZOSTER RECOMBINANT 2 2018 187 complet ed [place] ZOSTER RECOMBINANT 1 2018 187 complet ed [place] INFLUENZA, SEASONAL, INJECTABLE 2017 141 complet ed [facility] PNEUMOCOCCAL POLYSACCHARID E PPV23 2016 33 complet ed [place] PNEUMOCOCCAL CONJUGATE PCV 13 2014 133 complet ed Not available [facility] FLU,3 YRS (HISTORICAL) 2013 88 complet ed PCP [facility] DTAP, UNSPECIFIED FORMULATION 2013 107 complet ed [facility] TDAP 2012 115 complet ed [facility]. See record. [facility] HEPB-CPG 2 2011 189 complet ed [facility] HEP A-HEP B 1 2011 104 complet ed [facility] HEPB-CPG 1 2011 189 complet ed [facility] TD(ADULT) UNSPECIFIED FORMULATION 2011 139 complet ed PCP [facility] PNEUMOCOCCAL POLYSACCHARID E PPV23 2009 33 complet ed [facility] FLU,3 YRS (HISTORICAL) 2009 88 complet ed Site: Left Deltoid [place] ZOSTER LIVE 2009 ROSE MARY MONTES 121 complet ed [place] FLU,3 YRS (HISTORICAL) 2008 88 complet ed [facility] Vital Signs Combined list of inpatient and outpatient Vital Signs from Department of Defense and Veterans Affairs, ranging from 12 months to all on record, depending upon the facility. Vital Sign Value Date Comments Source SYSTOLIC BLOOD PRESSURE 135 06/09/20 24 09:15:49 [facility] [facility] DIASTOLIC BLOOD PRESSURE 75 024 09:15:49 [facility] PULSE OXIMETRY 96 06/09/2024 09:15:49 [facility] WEIGHT 258 06/09/2024 09:15:49 [facility] BMI 38 kg/m2 06/09/2024 09:15:49 [facility] PAIN 0 06/09/2024 09:15:49 [facility] HEIGHT 69 06/09/2024 09:15:49 [facility] TEMPERATURE 97.5 06/09/2024 09:15:49 [facility] PULSE 85 06/09/2024 09:15:49 [facility] RESPIRATION 20 06/09/2024 09:15:49 [facility] Encounters Combined list of: 1) Encounters from Department of Veterans Affairs facilities going backup to the last 18 months, not all VA inpatient encounters are included; 2) Encounters from the Department of Defense facilities going backup to 280 months. Location Location Details Encounter Type Encounter Number Reason For Visit Attending Provider ADM Date DC Date Status Disposition Source [facility] Out[facility] Encounter [id number] 08/08 [facility] Out[facility] Encounter [id number] 08/19 [facility] Out[facility] Encounter [id number] 09/25 [facility] Out[facility] Encounter [id number] 11/07 [facility] Out[facility] Encounter [id number] 11/07 [facility] Out[facility] Encounter [id number] 11/11 [facility] Out[facility] Encounter [id number] 11/13 [facility] Out[facility] Encounter [id number] 12/28 [facility] COLLJ & INTERPJ DATA EA 30 D [id number] Diagnos is: ICD-10- CM G47.30 Sleep apnea, unspeci fied RETA ESTRADA A 02/16 [facility] Out[facility] En[facility] [id number] 03/25 [facility] Encounter [id number] 03/29 [facility] Out[facility] Encounter [id number] 04/05 [facility] Encounter [id number] 04/05 [facility] Out[facility] Encounter [id number] 04/19 [facility] Encounter [id number] 04/20 [facility] Encounter [id number] 04/21 [facility] Encounter [id number] 04/26 [facility] Out[facility] Encounter [id number] 04/30 [facility] Out[facility] Encounter [id number] 05/11 [facility] Encounter [id number] 05/26 [facility] Out[facility] Encounter [id number] 06/04 [facility] Out[facility] Encounter [id number] 06/05 [facility] Encounter [id number] 06/07 [facility] Out[facility] Encounter [id number] 06/09 [facility] OFFICE O/P EST MOD 30 MIN [id number] Diagnos is: ICD-10- CM Z00.01 Encount er for general adult medical exam w abnorma l finding s Mendez COLE 06/09 [facility] Out[facility] Encounter [id number] [facility] Encounter [id number] 1.06/16 [facility] [place] ORTHC/PROS TC MGMT SBSQ ENC [id number] Diagnos is: ICD-10- CM M25.569 Pain in unspeci fied knee Jose LOMAS CHANO 06/17 [place] [facility] Out[facility] Encounter [id number] 06/24 [facility] Encounter [id number] 07/09 [facility] Out[facility] Encounter [id number] 07/16 [facility] [place] SELF CARE MNGMENT TRAINING [id number] Diagnos is: ICD-10- CM M25.569 Pain in unspeci fied knee Jose LOMAS CHANO 07/22 [place] [facility] Out[facility] Encounter [id number] 08/06 [facility] Out[facility] Encounter [id number] 08/06 [facility] Encounter [id number] 08/10 [facility] Out[facility] Encounter [id number] 08/17 [facility] HEARING AID REPAIR/MOD IFYING [id number] Diagnos is: ICD-10- CM Z46.1 Encount er for fitting and adjustm ent of hearing aid ZULEMA CRISTINA 08/17 [facility] Outpatient Encounter [id number] 12/17 [facility] [place] Outpatient Encounter [id number] 12/20 [facility] [place] SPECIAL SUPPLIES PHYS/QHP [id number] Diagnos is: ICD-10- CM G47.30 Sleep apnea, unspeci fied JARMOLOWIC Z,YAZAN 12/28 [facility] [facility] Social History Combined list of available smoking, tobacco, and other social history from Department of Defense and Veterans Affairs facilities. Social History Type Response Date Comment Sour e Tobacco smoking status FLIS VA-TOBACCO FORMER USER 06/09/2024 [place] History of tobacco use CO-TOBACCO QUIT 15 YRS OR MORE 06/09/2024 [place] History of tobacco use CO-TOBACCO FORMER USER 06/10/2023 [place] History of tobacco use CO-TOBACCO FORMER USER 06/10/2022 [place] History of tobacco use CO-TOBACCO FORMER USER 06/14/2020 [place] History of tobacco use CO-TOBACCO QUIT 15 YRS OR MORE 12/25/2018 [place] History of tobacco use QUIT TOBACCO USE > 7 YEARS AGO 04/28/2018 [place] History of tobacco use QUIT TOBACCO USE > 7 YEARS AGO 12/11/2015 [place] History of tobacco use QUIT TOBACCO USE > 7 YEARS AGO 05/01/2010 stopped tobacco 1998 [place] Plan of Care List of future care activities from [facility] facilities. Additional future care activities may be listed in the Assessment and Plan section. Date/Time Care Activity Care Activity Detail Facili ty 06/08/2025 AMBULATORY - MEDICINE AMBULATORY - MEDICI [facility] Advance Directives List of completed, amended, or rescinded Advance Directives on record at Department of Veterans Affairs facilities. An actual copy of the Directive is not included. Date Advance Directive Provider Source 07/09/2010 [facility]
--- OUTSIDE RECORDS SUMMARY | 2024-12-29 08:44 | XMS_ITS | Encounter Summary ---
Author Name [facility] [place] [facility] [place] [facility] [place] Address [address] [place] [address] Care Team Providers Care Electrical Test Engineer Name Role Phone DYLAN GRANDA Primary Care Provider Unavailab le Insurance Providers: All historical and current [...] Novoa's Name Patient's Relationship to Policy Novoa [facility] ([facility]) MEDICARE ADVANTAGE MCR ([facility]) Aug 20, 2014 [id number] PATIENT [facility] ([facility]) MEDICARE ADVANTAGE MCR ([facility]) Aug 20, 2014 [id number] PATIENT [facility] ([facility]) MEDICARE ADVANTAGE MCR ([facility]) Aug 20, 2014 [id number] PATIENT Selected Encounter This section includes the information on record at [place] for the Encounter. Date/Time Encounter Type Encounter Description Reason Pro vider Source Dec 20, 2024 01:15 PM Outpatient Encounter PRIMARY CARE/MEDICINE IHE Encounter Template Text not used by [place] Plan of Treatment: Future Appointments (+ 6 months) and Future Tests (+/- 45 days) The Plan of Treatment section includes future care activities for the patient from all [place] [facility]. This section includes future appointments and future orders which are active, pending or scheduled. Future Appointments This section includes appointments that were scheduled to occur 6 months from the date of the Encounter, up to a maximum of 20 appointments. The data comes from all [place] treatment facilities. Appointment Date/Time Appointment Type Appointme nt Facility Name Jun 08, 2025 09:00 AM AMBULATORY - [facility]ICINE [place] [facility] Advance Directives: All historical and current Section Date Range: From patient's date of to the date document was created. This section includes ALL of a patient's completed or amended [place] Advance and Rescinded Directives. The entries below indicate that a directive exists for the patient, but an actual copy is not included with this document. The data comes from all [place] facilities. Date Advance Directives Provider Source Jul 09, 2010 ADVANCE DIRECTIVE HA REYNOSO [facility] Encounter Notes: All associated encounter notes This section contains the clinical notes associated to the Encounter. Date/Time Encounter Note(s) Provider Source Dec 20, 2024 01:15 PM PRIMARY CARE TELEP JULIO ENCOUNTER NOTE: LOCAL TITLE: TELEPHONE NOTE/PRIMARY CARE STANDARD TITLE: PRIMARY CARE TELEPHONE ENCOUNTER NOTE DATE OF NOTE: DEC 20, 2024@13:15 ENTRY DATE: DEC 20, 2024@13:16 AUTHOR: PRADEEP GRANDE EXP COSIGNER: URGENCY: STATUS: COMPLETED TELEPHONE NOTE/PRIMARY CARE Has ADDENDA [place] called to get some advice, he went to urgent care in [place] on Friday with sore throat, stuffy nose and head symptoms. States they tested him for Covid, Flu A & B as well as RSV and they all came back negative. Still has symptoms. /rodolfo/ PRADEEP GRANDE ADVANCED HOTEL ASSISTANT MANAGER Signed: 12/20/2024 13:21 Receipt Acknowledged By: 12/21/2024 10:26 /rodolfo/ HASEEB VILLAVICENCIO LPN LPN 12/21/2024 09:47 /es/ SILVINO COLBERT,RN-BC REGISTERED NURSE (RN) 12/21/2024 ADDENDUM STATUS: COMPLETED [facility] called and he stated he went back to yesterday and he was dx with bronchitis. Patient was prescribed albuterol inhaler, 20mg of Prednisone and Fluticasone propionate. Patient states he is starting to feel better now with meds. Patient was requested to call the clinic back if condition worsens. Patient reported understanding and agreed to plan. /rodolfo/ SILVINO COLBERT,RN-BC REGISTERED NURSE (RN) Signed: 12/21/2024 09:51 PRADEEP GRANDE
--- OUTSIDE RECORDS SUMMARY | 2024-12-29 08:44 | XMS_ITS | Encounter Summary ---
Author Name [facility] [place] [facility] [place] [facility] [place] Address [address] [place] [address] Care Team Providers Care Glove Pairer Name Role Phone DYLAN GRANDA Primary Care [...] Novoa's Name Patient's Relationship to Policy Novoa [facility] ([facility]) MEDICARE ADVANTAGE MCR ([facility]) Aug 20, 2014 [id number] PATIENT [facility] ([facility]) MEDICARE ADVANTAGE MCR ([facility]) Aug 20, 2014 [id number] PATIENT [facility] ([facility]) MEDICARE ADVANTAGE MCR ([facility]) Aug 20, 2014 [id number] PATIENT Selected Encounter This section includes the information on record at [place] for the Encounter. Date/Time Encounter Type Encounter Description Reason Pro vider Source Dec 17, 2024 10:04 AM Outpatient Encounter TELEPHONE TRIAGE IHE Encounter Template Text not used by [place] Plan of Treatment: Future Appointments (+ 6 months) and Future Tests (+/- 45 days) The Plan of Treatment section includes future care activities for the patient from all [place] [facility]. This section includes future appointments and future orders which are active, pending or scheduled. Future Appointments This section includes appointments that were scheduled to occur 6 months from the date of the Encounter, up to a maximum of 20 appointments. The data comes from all [place] treatment facilities. Appointment Date/Time Appointment Type Appointme nt Facility Name Jun 08, 2025 09:00 AM AMBULATORY - MEDICINE [place] [facility] Advance Directives: All historical and current Section Date Range: From patient's date of to the date document was created. This section includes ALL of a patient's completed or amended [place] Advance and Rescinded Directives. The entries below indicate that a directive exists for the patient, but an actual copy is not included with this document. The data comes from all [place] facilities. Date Advance Directives Provider Source Jul 09, 2010 [facility] Encounter Notes: All associated encounter notes This section contains the clinical notes associated to the Encounter. Date/Time Encounter Note(s) Provider Source Dec 17, 2024 10:04 AM RN PROGRESS NOTE: LOCAL TITLE: CCC: CLINICAL TRIAGE STANDARD TITLE: RN PROGRESS NOTE DATE OF NOTE: DEC 17, 2024@10:04:16 ENTRY DATE: DEC 17, 2024@10:04:16 AUTHOR: GURVINDER MILLER COSIGNER: URGENCY: STATUS: COMPLETED CCC: CLINICAL TRIAGE Has ADDENDA Patient Demographics Patient Name: CELIA FRYE Patient Primary Address: [address] [place] [address] Patient Primary Phone: [phone] Patient : 1945 Patient Age: 78 Current Location: cell Call Back Number: Caller/Recipient Relation to Patient: Self Caller Name: CELIA FRYE Emergency Contact: PONCHO ACEVEDO Triage Summary Conducted triage/discussed symptoms Pain Score: 4 Utilized the Triage Tool: Yes Chief Complaint: Head Congestion System WHEN: Self-care Nurse's Recommendation / WHEN: Selfcare System WHERE: Home Nurse's Recommendation / WHERE: Home Care Patient Disposition Patient/Caregiver agrees to plan of care: Yes Nursing Plan and Disposition Other course(s) of action Generated msg to PACT/Provider Provided guidance for worsening symptoms: *Caller/Patient* advised to call facilities [place] Clinical Contact Center or seek immediate medical attention for new or worsening symptoms Nurse Summary Nurse Summary: states past couple days, bad runny nose/head congestion, cough will continue to monitor symptoms will take at home covid test and call back if results are positive see triage for further information for details pact alerted for further follow up Clinical Contact Center Codes Clinic/Location: V1 CWM PHONE CCC RN Decision Support System Output: Triage Complete Triage Date: 12/17/2024, 10:00 AM Triage Note: Decision Support Tool Used: [facility] Phone Triage 17 Dec 2024 14:56:29 +0000 [facility] Demographics 78 y/o Male Results CC: Head Congestion Software suggested: Self-care Software suggested follow-up location: Home, consider virtual care Values and Measures Temperature: 98.2 Fahrenheit Duration of CC: 2 Days Positive Responses HPI: cough, new or worsening HPI: headache HPI: nasal congestion, duration longer than 2 days HPI: weakness, fatigue, more than usual VS: respiratory rate not taken Negative Responses Denies: HPI: breathing more rapidly than usual Denies: HPI: chest pain, pleuritic Denies: HPI: cough, moderate to severe Denies: HPI: cough, purulent sputum Denies: HPI: fever, subjective Denies: HPI: headache, moderate to severe Denies: HPI: hemoptysis, blood-streaked sputum Denies: HPI: myalgias Denies: HPI: pain, maxillary or frontal sinuses Denies: HPI: rhinorrhea, yellow or brown Denies: HPI: sore throat Denies: HPI: vomiting Denies: HPI: wheezing, new or worsening Denies: MEDS: antibiotic Denies: MEDS: chemotherapy Denies: PMH: diabetes Denies: PMH: HIV positive Denies: PSH: organ transplant Denies: PSH: spleen removed Education Verbal Education Provided for: Nasal or Sinus Congestion Home Care Influenza Home Care IMPORTANT: This note was created by [facility] Clinical Contact Center staff. Please do not alert the staff member by adding them as a signer for future communications. Alerts are not monitored by this user. /rodolfo/ GURVINDERFRANCESCA MILLER RN, BSN REGISTERED NURSE Signed: 12/17/2024 10:04 Receipt Acknowledged By: 12/20/2024 11:57 /rodolfo/ HASEEB VILLAVICENCIO LPN LPN 12/17/2024 14:23 /rodolfo/ SILVINO COLBERT,RN-BC REGISTERED NURSE (RN) 12/17/2024 ADDENDUM STATUS: COMPLETED Called without success. Left HIPAA compliant voicemail with callback # to call back to discuss symptoms. /rodolfo/ SILVINO COLBERT,RN-BC REGISTERED NURSE (RN) Signed: 12/17/2024 14:03 12/17/2024 ADDENDUM STATUS: COMPLETED Patient will [facility] to [facility] to be evaluated. /SILVINO Hallman,RN-BC REGISTERED NURSE (RN) Signed: 12/17/2024 14:23 GURVINDER MILLER [place] [facility]
--- OUTSIDE RECORDS SUMMARY | 2024-12-29 08:44 | XMS_ITS | Encounter Summary ---
Author Name [facility] [place] Organization [place] Address [address] [place] [id number] Care Team Providers Care Low Pressure Boiler Operator Name Role Phone MICHA COLE Primary Care Provider Unava ilable Insurance Providers: All historical and current Section [...] Name Patient's Relationship to Policy Novoa [facility] ([facility]) MEDICARE ADVANTAGE MCR ([facility]) Aug 20, 2014 [id number] PATIENT [facility]) MEDICARE ADVANTAGE MCR ([facility]) Aug 20, 2014 [id number] PATIENT [facility]) MEDICARE ADVANTAGE MCR ([facility]) Aug 20, 2014 [id number] [phone] PATIENT Selected Encounter This section includes the information on record at [place] for the Encounter. Date/Time Encounter Type Encounter Description Reason Provider Source Jul 22, 2024 11:00 AM SELF CARE MNGMENT TRAINING PHYSICAL THERAPY ICD-10-CM M25.569 Pain in unspecified knee FREDERICK LOMAS [facility] Encounter Template Text not used by [place] Assessments - Encounter Diagnoses This section includes the primary and secondary diagnoses documented for the Encounter. Date/Time Primary/Secondary Diagnosis Diagnosis Name Provider Source Jul 22, 2024 11:22 AM PRIMARY Pain in unspecified knee PHUC LOMAS Plan of Treatment: Future Appointments (+ 6 months) and Future Tests (+/- 45 days) The Plan of Treatment section includes future care activities for the patient from all [place] [facility]. This section includes future appointments and future orders which are active, pending or scheduled. Future Appointments This section includes appointments that were scheduled to occur 6 months from the date of the Encounter, up to a maximum of 20 appointments. The data comes from all [place] treatment facilities. Appointment Date/Time Appointment Type Appointme nt Facility Name Aug 17, 2024 10:00 AM AMBULATORY - REHAB MEDICIN E [facility] Active, Pending, and Scheduled Orders This section includes a listing of several types of active, pending, and scheduled orders, including clinic medications orders, diagnostic test orders, procedure orders and consult orders; where the start date of the order is 45 days before the date of the Encounter or 45 days after the date of theEncounter. The data comes from all [facility]. Test Date/Time Test Type Test Details Facility Name Jun 09, 2024 12:00 AM Laboratory - Chemi stry Order OCCULT BLOOD FIT X1 SCREEN(IN-HOUSE) STOOL FECES SP [facility] Social History: Smoking Status (Most current) and Tobacco Use (All prior to encounter date) This section includes the most current, and the historical, smoking and tobacco- related health factors from the [place] facility where the Encounter took place. Current Smoking Status This section includes the most current smoking, or tobacco-related health factor, from the [place] facility where the Encounter took place. Date/Time Current Smoking Status Comment Desiree ity Jun 09, 2024 09:00 AM [place]-TOBACCO FORMER USER [facility] Tobacco Use History This section includes a history of the smoking, or tobacco-related health factors, that were collected on or before the date of the Encounter. The data comes from the [place] facility where the Encounter took place. Date/Time Smoking Status/Tobacco Use Comment F acility Jun 09, 2024 09:00 AM [place]-TOBACCO QUIT 15 YRS OR MORE [facility] Jun 10, 2023 09:00 AM [place]-TOBACCO FORMER USER [facility] Jun 10, 2023 09:00 AM VA-TOBACCO QUIT 15 YRS OR MORE [facility] Jun 10, 2022 10:00 AM VA-TOBACCO FORMER USER [facility] Jun 10, 2022 10:00 AM VA-TOBACCO QUIT 15 YRS OR MORE [facility] Jun 14, 2020 09:00 AM VA-TOBACCO FORMER USER [facility] Jun 14, 2020 09:00 AM VA-TOBACCO QUIT 15 YRS OR MORE [facility] Dec 25, 2018 12:05 PM VA-TOBACCO FORMER USER [facility] Dec 25, 2018 12:05 PM VA-TOBACCO QUIT 15 YRS OR MORE [facility] Apr 28, 2018 09:05 AM QUIT TOBACCO USE > 7 YEARS AGO [facility] Dec 11, 2015 03:14 PM QUIT TOBACCO USE > 7 YEARS AGO [facility] May 01, 2010 01:18 PM QUIT TOBACCO USE > 7 YEARS AGO stopped tobacco 1998 [facility] Advance Directives: All historical and current Section Date Range: From patient's date of to the date document was created. This section includes ALL of a patient's completed or amended [place] Advance and Rescinded Directives. The entries below indicate that a directive exists for the patient, but an actual copy is not included with this document. The data comes from all [place] facilities. Date Advance Directives Provider Source Jul 09, 2010 ADVANCE DIRECTIVE HA RE[facility]NOSO [facility] Encounter Notes: All associated encounter notes This section contains the clinical notes associated to the Encounter. Date/Time Encounter Note(s) Provider Source Jul 22, 2024 11:17 AM PHYSICAL THERAPY N OTE: LOCAL TITLE: PHYSICAL THERAPY STANDARD TITLE: PHYSICAL THERAPY NOTE DATE OF NOTE: JUL 22, 2024@11:17 ENTRY DATE: JUL 22, 2024@11:17:32 AUTHOR: PHUC LOMAS EXP COSIGNER: URGENCY: STATUS: COMPLETED Initial Evaluation date: May Progress Note Date: Treatment #: 1 Treatment time: 15 mins Diagnosis: pain in knee Provider: PT Treatment Precautions: Patient identified by full name and date of [place] came in on this date stating that the knee wrap with hinges was not providing him with the proper support, states that he doesn't need the lateral or medial support, states that he needs more support like decompression of the knee, encouraged to reach out to his provider to conduct more diagnostic measures so we can fit him with the appropriate knee brace. /rodolfo/ KATHERINE RAGLAND LICENSE REDRAWER Signed: 07/22/2024 11:22 [facility] LOMAS
--- OUTSIDE RECORDS SUMMARY | 2024-12-29 08:44 | XMS_ITS | Encounter Summary ---
Author Name [facility] Address [address] [place] [address] Care Team Providers Care Production Quality Analyst Name Role Phone MICHA COLE Primary Care [...] Novoa's Name Patient's Relationship to Policy Novoa [facility]) MEDICARE ADVANTAGE MCR ([facility] Aug 20, 2014 [id number] PATIENT [facility] ([facility] MEDICARE ADVANTAGE MCR ([facility] Aug 20, 2014 [id number] [phone] PATIENT [facility] ([facility] MEDICARE ADVANTAGE MCR ([facility] Aug 20, 2014 [id number] PATIENT Selected Encounter This section includes the information on record at NH for the Encounter. Date/Time Encounter Type Encounter Description Reason Provider Source Jun 09, 2024 09:00 AM OFFICE O/P EST MOD 30 MIN PRIMARY CARE/MEDICINE ICD-10-CM Z00.01 Encounter for general adult medical exam w abnormal findings STACY COLE Jose Encounter Template Text not used by NH Assessments - Encounter Diagnoses This section includes the primary and secondary diagnoses documented for the Encounter. Date/Time Primary/Secondary Diagnosis Diagnosis Name Provider Source Jun 09, 2024 09:55 AM PRIMARY Encounter for general adult medical exam w abnormal findings [facility] [place] Jun 09, 2024 09:55 AM SECONDARY Obesity, unspecified [facility]AS,[facility] Jun 09, 2024 09:55 AM SECONDARY Pain in unspecified knee [facility] Plan of Treatment: Future Appointments (+ 6 months) and Future Tests (+/- 45 days) The Plan of Treatment section includes future care activities for the patient from all [facility] This section includes future appointments and future orders which are active, pending or scheduled. Future Appointments This section includes appointments that were scheduled to occur 6 months from the date of the Encounter, up to a maximum of 20 appointments. The data comes from all [facility]. Appointment Date/Time Appointment Type Appointme nt Facility Name Jun 17, 2024 09:30 AM AMBULATORY - REHAB MEDICIN [facility] Jul 22, 2024 11:00 AM AMBULATORY - REHAB MEDICIN [facility] Aug 17, 2024 10:00 AM AMBULATORY - REHAB MEDICIN [facility] Active, Pending, and Scheduled Orders This section includes a listing of several types of active, pending, and scheduled orders, including clinic medications orders, diagnostic test orders, procedure orders and consult orders; where the start date of the order is 45 days before the date of the Encounter or 45 days after the date of theEncounter. The data comes from all [facility]. Test Date/Time Test Type Test Details Facility Name May 27, 2024 12:00 AM Laboratory - Chemistry Order BASIC METABOLIC PANEL (fasting) BLOOD (SST[facility]SERUM) [facility] May 27, 2024 12:00 AM Laboratory - Chemistry Order LIPID PANEL FASTING BLOOD (SST-SERUM) [facility] May 27, 2024 12:00 AM Laboratory - Chemistry Order LIVER FUNCTION BLOOD (SST-SERUM) [facility] May 27, 2024 12:00 AM Laboratory - Chemistry Order CBC AND DIFF (AUTO) BLOOD (LAV-BLOOD) [facility] May 27, 2024 12:00 AM Laboratory - Chemistry Order HEMOGLOBIN A1C PANEL BLOOD (LAV-BLOOD) [facility] May 27, 2024 12:00 AM Laboratory - Chemistry Order TSH BLOOD (SST-SERUM) [facility] May 27, 2024 12:00 AM Laboratory - Chemistry Order MICROALBUMIN CREATININE RATIO PANEL URINE (RANDOM) [facility] Jun 09, 2024 12:00 AM Laboratory - Chemistry Order OCCULT BLOOD FIT X1 SCREEN(IN-HOUSE) STOOL FECES [facility] Social History: Smoking Status (Most current) and Tobacco Use (All prior to encounter date) This section includes the most current, and the historical, smoking and tobacco- related health factors from the NH facility where the Encounter took place. Current Smoking Status This section includes the most current smoking, or tobacco-related health factor, from the NH facility where the Encounter took place. Date/Time Current Smoking Status Comment Facil it Jun 09, 2024 09:00 AM NH-TOBACCO FORMER USER [place] Tobacco Use History This section includes a history of the smoking, or tobacco-related health factors, that were collected on or before the date of the Encounter. The data comes from the NH facility where the Encounter took place. Date/Time Smoking Status/Tobacco Use Comment F acility Jun 09, 2024 09:00 AM VA-TOBACCO QUIT 15 YRS OR MORE [place] Jun 10, 2023 09:00 AM VA-TOBACCO FORMER USER [place] Jun 10, 2023 09:00 AM VA-TOBACCO QUIT 15 YRS OR MORE [place] Jun 10, 2022 10:00 AM VA-TOBACCO FORMER USER [place] Jun 10, 2022 10:00 AM VA-TOBACCO QUIT 15 YRS OR MORE [place] Jun 14, 2020 09:00 AM VA-TOBACCO FORMER USER [place] Jun 14, 2020 09:00 AM VA-TOBACCO QUIT 15 YRS OR MORE [place] Dec 25, 2018 12:05 PM VA-TOBACCO FORMER USER [place] Dec 25, 2018 12:05 PM VA-TOBACCO QUIT 15 YRS OR MORE [place] Apr 28, 2018 09:05 AM QUIT TOBACCO USE > 7 YEARS AGO [place] Dec 11, 2015 03:14 PM QUIT TOBACCO USE > 7 YEARS AGO [place] May 01, 2010 01:18 PM QUIT TOBACCO USE > 7 YEARS AGO stopped tobacco 1998 [place] Advance Directives: All historical and current Section Date Range: From patient's date of to the date document was created. This section includes ALL of a patient's completed or amended VA Advance and Rescinded Directives. The entries below indicate that a directive exists for the patient, but an actual copy is not included with this document. The data comes from all NH facilities. Date Advance Directives Provider Source Jul 09, 2010 ADVANCE DIRECTIVE HA [facility] Encounter Notes: All associated encounter notes This section contains the clinical notes associated to the Encounter. Date/Time Encounter Note(s) Provider Source Aug 10, 2024 01:02 PM MEDICATION MGT NOT E: LOCAL TITLE: OUTPATIENT MEDICATION REQUEST STANDARD TITLE: MEDICATION MGT NOTE DATE OF NOTE: AUG 10, 2024@13:02 ENTRY DATE: AUG 10, 2024@13:02:51 AUTHOR: APOORVA JIM EXP COSIGNER: URGENCY: STATUS: COMPLETED Medication Request Date of Request: Jul Is this a New Medication? No Renew for mail MESALAMINE (PENTASA) CAP,SA 500MG TAKE TWO CAPSULES BY MOUTH TWICE DAILY Quantity: 360 Refills: 3 /rodolfo/ Apoorva Jim RN Registered Nurse (RN) Signed: 08/10/2024 13:03 Receipt Acknowledged By: 08/31/2024 11:52 /es/ MICHA COLE MD PHYSICIAN APOORVA JIM MERE Jun 09, 2024 09:22 AM ADDENDUM: LOCAL TITLE: Addendum STANDARD TITLE: ADDENDUM DATE OF NOTE: JUN 09, 2024@09:22:17 ENTRY DATE: JUN 09, 2024@09:22:18 AUTHOR: HASEEB VILLAVICENCIO EXP COSIGNER: URGENCY: STATUS: COMPLETED Please request the followin.Last Colonoscopy from [facility]. 2.Last Foot Exam from: [facility] [phone] 3.Last Eye Exam from: Dr. Hui Sandoval 4.Last Lab results from: Brannon Calvert MD Phone: [phone] Thanks! /es/ HASEEB VILLAVICENCIO LPN LPN Signed: 06/09/2024 09:28 Receipt Acknowledged By: 06/09/2024 10:22 /es/ LAYLA EUGENE --- Original Document --- 06/09/24 CLINICAL REMINDERS/NURSING: Advance Directive Screen MH AD: Patient has an Advance Directive on file at this [facility]. No updates are needed at this time. The patient received education about Advance Directives and written notification of his/her rights. Suicide Screen: C-SSRS Screening [place] Suicide Severity Rating Scale (C-SSRS) screener 1. Over the past month, have you wished you were or wished you could go to sleep and not wake up? No 2. Over the past month, have you had any actual thoughts of killing yourself? No 3. Over the past month, have you been thinking about how you might do this? Response not required due to responses to other questions. 4. Over the past month, have you had these thoughts and had some intention of acting on them? Response not required due to responses to other questions. 5. Over the past month, have you started to work out or worked out the details of how to kill yourself? Response not required due to responses to other questions. 6. If yes, at any time in the past month did you intend to carry out this plan? Response not required due to responses to other questions. 7. In your lifetime, have you ever done anything, started to do anything, or prepared to do anything to end your life (for example, collected pills, obtained a gun, gave away valuables, went to the roof but didn't jump)? No 8. If YES, was this within the past 3 months? Response not required due to responses to other questions. Follow Up Colonoscopy: Colonoscopy is due based on information available to this reminder. A colonoscopy has been completed elsewhere and we are waiting for results. Depression Screening: Perform PHQ-2 A PHQ-2 screen was performed. The score was 0 which is a negative screen for depression. Over the past two weeks, how often have you been bothered by the following problems? 1. Little interest or pleasure in doing things Not at all 2. Feeling down, depressed, or hopeless Not at all Falls & Incontinence Screen: Falls Screen: 4. No falls within the past year. Incontinence Screen No incontinence. Hemoglobin A1C: Order for HBA1C placed. Home Telehealth (CCHT) [facility]: [facility]. Tobacco Use Screening: The patient is a former tobacco user. The patient quit fifteen or more years ago. Influenza Immunization: The patient has received the seasonal influenza vaccine for the current season at another location. Documented: INFLUENZA, UNSPECIFIED FORMULATION Historical Date Administered: 2022 Exact date unknown Outside Location: Outside Healthcare Provider Information Source: FROM OTHER REGISTRY Td / Tdap Immunization: The patient declines to receive the recommended dose of Td/Tdap vaccine. Immunization: TD(ADULT) UNSPECIFIED FORMULATION Refusal Reason: PATIENT DECISION Patient refuses all immunization(s) in the Td group Date Documented: 06/09/24 09:20 Alcohol Use Screen (AUDIT-C): Alcohol Screen: SCREEN FOR ALCOHOL (AUDIT-C) An alcohol screening test (AUDIT-C) was negative (score=2). 1. How often did you have a drink containing alcohol in the past year? Consider a drink to be a 12 ounce can or bottle of regular beer, 8 ounces of malt liquor, a 5 ounce glass of table wine, or a 1.5 ounce shot of liquor (like scotch, gin, or vodka). Two to four times a month 2. How many drinks containing alcohol did you have on a typical day when you were drinking in the past year? One or two drinks 3. How often did you have six or more drinks on one occasion in the past year? Never COVID-19 Immunization: Defer due to a PRECAUTION Reason: not avilable Sexual Orientation: The patient thinks of their sexual orientation as: Straight or Heterosexual RHS Screen: RHS Screen Session Format: Face to Face Environmental Check Upon inquiry, the individual reports that the environment is safe to proceed. Informed Consent to Screen and Document The individual consents to proceed with screening. The individual consents to documentation of responses. PRIMARY SCREEN: In the past 12 months, how often did a current or former intimate partner (e.g., boyfriend, girlfriend, , , sexual partner): 1. Scream or curse at you Never 2. Insult or talk down to you Never 3. Threaten you with harm Never 4. Physically hurt you Never 5. Force or pressure you to have sexual contact against your will, or when you were unable to say no Never ?? The HITS tool (items 1-4 above) is [place] copyright protected by Tonio Gonzalez MD, and the user has full rights to use it throughout the [place] system. PRIMARY SCREEN RESULT: The Primary Screen is NEGATIVE. The individual answered never to all forms of IPV above (i.e., answered never to all 5 items) The individual accepts education and/or resources: No EDUCATION: The individual indicated readiness to learn. Education offered during this session as noted above. The individual indicated understanding by asking relevant questions and making appropriate comments. No barriers to learning were observed or identified. PAVE Foot Check: Patient declined limb care exam. Comment: completed [facility]. RECORDS REQUESTED The patient was advised the [place] mandates all patients with diabetes mellitus, end stage renal disease, peripheral vascular disease, or sensory neuropathy should have a complete foot check completed annually. This includes a visual exam of the skin, pedal pulses and a sensory exam. Patients with any abnormality noted during the foot check should be referred to a specialist. MED REC COMPLETED BY PROVIDER DURING THE VISIT. /rodolfo/ HASEEB VILLAVICENCIO LPN LPN Signed: 06/09/2024 09:22 06/09/2024 ADDENDUM STATUS: COMPLETED Disability Hearing Officer requested last colonoscopy, most recent labs, last eye exam, & last foot exam. /es/ LAYLA [facility] Signed: 06/09/2024 10:22 HASEEB VILLAVICENCIO [place] Jun 09, 2024 09:16 AM PREVENTIVE MEDICIN E NURSING NOTE: LOCAL TITLE: CLINICAL REMINDERS/NURSING STANDARD TITLE: PREVENTIVE MEDICINE NURSING NOTE DATE OF NOTE: JUN 09, 2024@09:16 ENTRY DATE: JUN 09, 2024@09:16:40 AUTHOR: HASEEB VILLAVICENCIO COSIGNER: URGENCY: STATUS: COMPLETED CLINICAL REMINDERS/NURSING Has ADDENDA Advance Directive Screen MH AD: Patient has an Advance Directive on file at this [facility]. No updates are needed at this time. The patient received education about Advance Directives and written notification of his/her rights. Suicide Screen: C-SSRS Screening [place] Suicide Severity Rating Scale (C-SSRS) screener 1. Over the past month, have you wished you were or wished you could go to sleep and not wake up? No 2. Over the past month, have you had any actual thoughts of killing yourself? No 3. Over the past month, have you been thinking about how you might do this? Response not required due to responses to other questions. 4. Over the past month, have you had these thoughts and had some intention of acting on them? Response not required due to responses to other questions. 5. Over the past month, have you started to work out or worked out the details of how to kill yourself? Response not required due to responses to other questions. 6. If yes, at any time in the past month did you intend to carry out this plan? Response not required due to responses to other questions. 7. In your lifetime, have you ever done anything, started to do anything, or prepared to do anything to end your life (for example, collected pills, obtained a gun, gave away valuables, went to the roof but didn't jump)? No 8. If YES, was this within the past 3 months? Response not required due to responses to other questions. Follow Up Colonoscopy: Colonoscopy is due based on information available to this reminder. A colonoscopy has been completed elsewhere and we are waiting for results. Depression Screening: Perform PHQ-2 A PHQ-2 screen was performed. The score was 0 which is a negative screen for depression. Over the past two weeks, how often have you been bothered by the following problems? 1. Little interest or pleasure in doing things Not at all 2. Feeling down, depressed, or hopeless Not at all Falls & Incontinence Screen: Falls Screen: 4. No falls within the past year. Incontinence Screen No incontinence. Hemoglobin A1C: Order for HBA1C placed. Home Telehealth (CCHT) Referral: [facility]. Tobacco Use Screening: The patient is a former tobacco user. The patient quit fifteen or more years ago. Influenza Immunization: The patient has received the seasonal influenza vaccine for the current season at another location. Documented: INFLUENZA, UNSPECIFIED FORMULATION Historical Date Administered: 2022 Exact date unknown Outside Location: Outside Healthcare Provider Information Source: FROM OTHER REGISTRY Td / Tdap Immunization: The patient declines to receive the recommended dose of Td/Tdap vaccine. Immunization: TD(ADULT) UNSPECIFIED FORMULATION Refusal Reason: PATIENT DECISION Patient refuses all immunization(s) in the Td group Date Documented: 06/09/24 09:20 Alcohol Use Screen (AUDIT-C): Alcohol Screen: SCREEN FOR ALCOHOL (AUDIT-C) An alcohol screening test (AUDIT-C) was negative (score=2). 1. How often did you have a drink containing alcohol in the past year? Consider a drink to be a 12 ounce can or bottle of regular beer, 8 ounces of malt liquor, a 5 ounce glass of table wine, or a 1.5 ounce shot of liquor (like scotch, gin, or vodka). Two to four times a month 2. How many drinks containing alcohol did you have on a typical day when you were drinking in the past year? One or two drinks 3. How often did you have six or more drinks on one occasion in the past year? Never COVID-19 Immunization: Defer due to a PRECAUTION Reason: not avilable Sexual Orientation: The patient thinks of their sexual orientation as: Straight or Heterosexual RHS Screen: RHS Screen Session Format: Face to Face Environmental Check Upon inquiry, the individual reports that the environment is safe to proceed. Informed Consent to Screen and Document The individual consents to proceed with screening. The individual consents to documentation of responses. PRIMARY SCREEN: In the past 12 months, how often did a current or former intimate partner (e.g., boyfriend, girlfriend, , , sexual partner): 1. Scream or curse at you Never 2. Insult or talk down to you Never 3. Threaten you with harm Never 4. Physically hurt you Never 5. Force or pressure you to have sexual contact against your will, or when you were unable to say no Never ?? The HITS tool (items 1-4 above) is [place] copyright protected by Tonio Gonzalez MD, and the user has full rights to use it throughout the NH system. PRIMARY SCREEN RESULT: The Primary Screen is NEGATIVE. The individual answered never to all forms of IPV above (i.e., answered never to all 5 items) The individual accepts education and/or resources: No EDUCATION: The individual indicated readiness to learn. Education offered during this session as noted above. The individual indicated understanding by asking relevant questions and making appropriate comments. No barriers to learning were observed or identified. PAVE Foot Check: Patient declined limb care exam. Comment: [facility] RECORDS REQUESTED The patient was advised the [place] mandates all patients with diabetes mellitus, end stage renal disease, peripheral vascular disease, or sensory neuropathy should have a complete foot check completed annually. This includes a visual exam of the skin, pedal pulses and a sensory exam. Patients with any abnormality noted during the foot check should be referred to a specialist. MED REC COMPLETED BY PROVIDER DURING THE VISIT. /rodolfo/ HASEEB VILLAVICENCIO LPN LPN Signed: 06/09/2024 09:22 06/09/2024 ADDENDUM STATUS: COMPLETED Please request the followin.Last Colonoscopy from [facility]. 2.Last Foot Exam from: [facility] [phone] 3.Last Eye Exam from: Dr. Hui Sandoval 4.Last Lab results from: Brannon Calvert MD Phone: [phone] Thanks! /rodolfo/ HASEEB VILLAVICENCIO LPN LPN Signed: 06/09/2024 09:28 Receipt Acknowledged By: 06/09/2024 10:22 /rodolfo/ LAYLA EUGENE 06/09/2024 ADDENDUM STATUS: COMPLETED Disability Hearing Officer requested last colonoscopy, most recent labs, last eye exam, & last foot exam. /rodolfo/ LAYLA EUGENE Signed: 06/09/2024 10:22 06/10/2024 ADDENDUM STATUS: COMPLETED Hemoglobin A1C: had HBA1C result from another health care site (results required). Date: June 04, 2024 Results: NORMAL( SEE RECORD) Diabetes: Kidney Health Evaluation: Last eGFR: EGFR No data available for: eGFR(CKD-EPI 2020) eGFR Last uACR: No uACR found within the past year eGFR and uACR (estimated Glomerular Filtration Rate and Urine Albumin-Creatinine Ratio)* Previous eGFR completed at a location other than this [facility] Previous eGFR with actual (numerical) results Date: June 05, 2024 Location: Outside Healthcare Provider eGFR: 84 mL/min/{1.73_m2} /es/ HASEEB VILLAVICENCIO LPN LPN Signed: 06/10/2024 11:19 06/16/2024 ADDENDUM STATUS: COMPLETED COVID-19 Immunization: Patient received a prior dose of the Moderna Monovalent vaccine. Documented: COVID-19 (MODERNA), MRNA, LNP-S, PF, 50 MCG/0.5 ML (AGES 12+ YEARS) Historical Date Administered: Aug 08, 2023 Outside Location: Outside Healthcare Provider Information Source: SOURCE UNSPECIFIED Follow Up Colonoscopy: Colonoscopy is due based on information available to this reminder. Prior/outside Colonoscopy results: MILD DIVERTICULOSIS AND INTERNAL HEMORROIDS, OTHERWISE NORMALREPEAT 2 YEARS BUT PATIENT WAS TOLD HE CAN OPT OUT BASED ON AGE SEE RECORD Date: August 19, 2023 Colonoscopy reminder set 1 year from JUN 16, 2024. PAVE Foot Check: Patient indicates foot exam (including monofilament test for sensation) was performed in the past year in the private sector: Date: April 20, 2024 Result: Abnormal( hammer toes, toe irritation, pain on left and right foot, onychomycosis) SEE [facility] RECORD Hemoglobin A1C: [place] had HBA1C result from another health care site (results required). Date: June 04, 2023 Location: Outside Healthcare Provider Results: 5.5 Diabetes: Kidney Health Evaluation: Last eGFR: MAY 29 OF 66 ([facility]) CR 1.1 EGFR No data available for: eGFR(CKD-EPI 2020) eGFR Last uACR: No uACR found within the past year Previous LAB creatinine completed at a location other than this [facility]: Date of Test: May 29, 2023 Location: Outside Healthcare Provider Creatinine 1.1 ([facility]) Eye Care At-Risk Screen : Patient identified to be at risk for the following eye condition(s): DIABETIC RETINOPATHY: Diabetes Diagnosis Information: Encounter Diagnosis: 01/01/2023@11:00 E11.9 (ICD-10-CM) Type 2 Diabetes Mellitus without Complications rank: PRIMARY Prov. Narr. 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 Narr. - Ocular Hypertension, Bilateral Action: No Referral Ordered: Eye exam completed elsewhere by an Nursing Informatics Specialist or Professor Of Communication And Writing Diabetic retinal exam result: Results Unknown (recommended that patient proceed with eye care request or obtain outside retinal exam result within 90 days) Date: October 23, 2022 Location: Outside Healthcare Provider Patient/Report indicates retinal laser therapy or eye injection within the past 2 years Comment: CATARACT SURGERY ON 10/23/2022 ON RIGHT EYE AND ON LEFT EYE WITH REQUIRE GLASSES TO READ. SEE REPORT FROM [facility] RECORDS FROM /es/ HASEEB VILLAVICENCIO LPN LPN Signed: 06/16/2024 11:30 HASEEB VILLAVICENCIO [place] Jun 09, 2024 08:45 AM PHYSICIAN NOTE: LOCAL TITLE: MD NOTE STANDARD TITLE: PHYSICIAN NOTE DATE OF NOTE: JUN 09, 2024@08:45 ENTRY DATE: JUN 09, 2024@08:45:42 AUTHOR: MICHA COLE EXP COSIGNER: URGENCY: STATUS: COMPLETED SUBJECT: Annual CoManaged CC: 78 year old WHITE MALE SERVICE CONNECTED % - NONE FOUND HPI: No complaints for self. Addition of gabapentin for his knees (discussed other injection therapy) Difficult year for spouse: recent dx of lung CA - XRT and will be resleased soon from [facility]. Lives with spouse. Daughters in [place], [place]; son in [facility] Has appointment with nonVA PCP next month Problem list and medications reviewed. Last Labs: outside labs Active problems - Computerized Problem List is the source for the followin. Gout on allopurinol 2. Outside PCP Dr. Constantin Andrea [facility] 3. Opthalmology Dr. Ritesh Hernandez Last Eye Exam 05/01/2020 4. Ulcerative colitis 5. Gout Diagnosed by Dr. Roland Andrea who works for [facility] [facility] 6. Type 2 diabetes mellitus PCP-Dr.Nathan Andrea 7. Osteoarthritis of knee NEOS 8. Chronic neck pain treated by capsaicin cream 9. Hypothyroidism (SCT [id number]) Discovered on bloodwork in Sep 2017 10. Inflammation of sacroiliac joint Dr. Appiah [facility] Physiat[facility], Also referred to [facility]SS[facility] Dr. Cardona MRI [facility] 08/2015 L3-L4 severe central spinal stenosis 11. Sleep apnea 12. Hyperglycemia * 13. Obesity * 14. Pure hypercholesterolemia * 15. Ulcerative colitis Nov 2016-repeat colonoscopy- 3 benign polyps and no active UC-due again in 2019 GI- Colonoscopies X 4: Ulcerative Colitis: 2009: Polyp X 1 Fazal BARRIOS: [facility]: Stated he does not have UC 16. Essential hypertension (SNOMED CT [id number]) 17. 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 Hearing loss 19. Bilateral Cataracts 20. Microscopic hematuria Recent CT ABD/PELVIS with and without contrast did not show any kidney stones-January 2017 Vanessa David MD: Urologist: Yearly PHYSICAL EXAMINATION/DIRECTED EXAM: BP:135/75 (06/09/2024 09:15) Resp:20 (06/09/2024 09:15) Temp:97.5 F [36.4 C] (06/09/2024 09:15) Pulse:85 (06/09/2024 09:15) WEIGHT 06/09/2024 09:15 258(117.03)[38*] 06/10/2023 09:16 237.6(107.77)[35*] 06/10/2022 10:08 256(116.12)[38*] Comfortable S1S2 RRR lungs CTA Benign abdomen No edema ASSESSMENT & PLAN: 78 year old MALE [facility] [place] presents for annual NH follow-up. Patient circumstances at this time is focused on the spouse spouse who has been recently diagnosed with lung cancer. He continues to deal with chronic low back pain pain as well as knee pain -there has been recent addition of gabapentin to his treatment. He does have considerable discomfort and requires rest periods when walking some distance. Patient is concerned about his mesalamine as seeing his GI doctor I encouraged additional charge and would like to be [facility] to take over the prescription. He reports that this medication is quite effective for his ulcerative colitis. Otherwise most of his medical issues are managed by his outside PCP. He will defer all decisions with this doctor. I discussed [facility]. He is amenable to the hypnosis program for weight loss during the day. I have made a referral to physical therapy to obtain some braces as this might be protective for his current knee condition. Plan of care discussed with patient who articulates understanding. Chronic issues reviewed briefly; no changes to management unless specified above. RTC annually and as needed TIME ATTESTATION: Time spent directly with the patient was ( x ) 30 minutes More than 50% of the time spent with the patient included counselling regarding the admission Medical Review, History and Physical Examination, discussion of the findings, both remote and local data in the medical record, management, and patient education for the annotated medical conditions above. Discussed with patient and agrees to plan. VA and Non VA meds were reconciled. Today's documentation was made using voice recognition software. This note may contain spelling/grammatical errors secondary to this software. Patient provided copies of labs/studies and medication list. Upcoming Appointments: 08/31/2024 08:00 NHM/OPTOMETRY/LACKEY/ Med Reconciliation: Active Outpatient Medications (including Supplies): Active Outpatient Medications Status ========= 1) LEVOTHYROXINE NA (SYNTHROID) 50MCG TAB TAKE ONE ACTIVE TABLET BY MOUTH EVERY MORNING 30 MINUTES BEFORE BREAKFAST FOR THYROID - TAKE ON AN EMPTY STOMACH WITH A FULL GLASS OF WATER EXCEPT TAKE 2 PILLS EVERY FRIDAY AND FRIDAY 2) LISINOPRIL 30MG TAB TAKE ONE TABLET BY MOUTH ONCE ACTIVE DAILY TO CONTROL BLOOD PRESSURE BRANNON CALVERT MD 3) MESALAMINE 500MG SA CAP TAKE TWO CAPSULES BY MOUTH ACTIVE TWICE DAILY 4) TAMSULOSIN HCL 0.4MG CAP TAKE ONE CAPSULE BY MOUTH ACTIVE ONCE DAILY FOR ENLARGED PROSTATE TAKE HALF AN HOUR AFTER LAST MEAL OF THE DAY. Active Non-VA Medications Status ========= 1) Non-VA ASCORBIC ACID 500MG TAB 1000MG BY MOUTH TWICE ACTIVE DAILY 2) Non-VA ASPIRIN 81MG EC TAB 81MG BY MOUTH DAILY ACTIVE 3) Non-VA CALCIUM CARBONATE TAB 333MG BY MOUTH ONCE ACTIVE DAILY 4) Non-VA CHOLECALCIF 25MCG (D3-1,000UNIT) TAB 1000UNT ACTIVE BY MOUTH DAILY 5) Non-VA MAGNESIUM OXIDE TAB 133MG BY MOUTH ONCE DAILY ACTIVE 6) Non-VA ZINC 50MG (FROM SULFATE) CAP 50MG BY MOUTH ACTIVE ONCE DAILY 10 Total Medications Medication (Local) Status ALLOPURINOL 300MG TAB Directions: TAKE ONE TABLET BY MOUTH ONCE DAILY FOR GOUT Quantity: 90 for 90 days Provider: MICHA COLE Expires: 05/01/24 Status: DORZOLAMIDE 22.3/TIMOLOL6.8MG/ML OPH NAGI Directions: INSTILL 1 DROP INTO EACH EYE TWICE DAILY TO REDUCE PRESSURE IN THE EYE Quantity: 20 for 90 days Provider: JUSTO LACKEY Expires: 04/25/24 Status: LATANOPROST 0.005% OPH SOLN Directions: INSTILL 1 DROP INTO EACH EYE AT BEDTIME FOR INCREASED PRESSURE IN THE EYE Quantity: 10 for 90 days Provider: JUSTO LACKEY Expires: 04/25/24 Status: Medication (Remote) Status No remote medications found. /rodolfo/ MICHA COLE MD PHYSICIAN Signed: 06/09/2024 09:55 MICHA COLE [place]
--- OUTSIDE RECORDS SUMMARY | 2024-12-29 08:45 | XMS_ITS ---
Author Organization [facility] [place] Address [address] [place] [address] Care Team Providers Care Popped Corn Oven Attendant Name Role Phone Brannon Calvert Primary Care Provider Mckinley Sigala Unavailable [phone] Allergies Allergen (clinical drug ingredient) Drug/Non Drug Allergy documented on EMR Reaction Allergy Type Onset Date Status ibuprofen Advil colitis flareups Drug Allergy Active ibuprofen Ibuprofen Unknown Drug Allergy Active REASON FOR VISIT At Risk Footcare, Painful Nail(s) aggrevated by shoes and causing difficulty standing/walking Medications Medication SIG (Take, Route, Frequency, Duration) Notes Start Date End Date Status Pioglitazone HCl 45 MG 1 tablet Orally O nce a day for 30 day(s) Not-Taking Extra Depth Orthopedic Shoes, (1) Pair With (3) Pair Custom Heat Molded Multidensity Innersoles Dx: NIDDM/PVD(E11.51), Hammertoe Foot Deformity(M20.41,M20 .42), Preulcerative Skin Lesion(s)(L85.1) Wear Daily for 365 days 04/20/2024 Active Latanoprost 0.005 % Ophthalmic Not-Taking Pentasa 500 MG 2 capsules Orally bid Not-Taking metFORMIN HCl 500 MG Orally 2 x a day Not-Taking zzzCompression Stockings 20-30mm Hg . . . for . Active Zinc 5mg Active Vitamin D 200 iu Act russel Vitamin C Active Tamsulosin HCl 0.4 MG 1 capsule 30 minut es after the same meal each day Orally Once a day for 30 day(s) 2 tab every fri/wed Active Lisinopril 20 MG 1 tablet Orally Once a day Active Eye Drops Temp Active Mesalamine Active Magnesium 133mg Acti ve Levothyroxine Sodium .05mg 1tab Once a day Active Ciclopirox Olamine 0.77 % 1 application to affected area Externally Twice a day for 30 days PRN Active Centrum Men Active Calcium 333mg Active aspirin baby Active Atorvastatin Calcium 10 MG Orally Active Pravastatin Sodium 10 MG 1 tablet Orally Once a day Not-Taking Delzicol Not-Taking Multi Vitamin Mens N ot-Taking Vitamin C Not-Taking Allopurinol 100 MG 1 tablet Orally Once a day for 30 day(s) Active Lantus SoloStar Not- Taking Levothyroxine Sodium 50 MCG Orally Not-Taking Social History Tobacco Use: Social History Observation [...] Signs Height 5 ft 9 in in 07/02/2024 Weight 240 lbs 07/02/2024 BMI 35.44 kg/m2 07/02/2024 Blood pressure systolic 126 mm Hg 07/02/20 24 Blood pressure diastolic 75 mm Hg 024 Procedures Procedure Date Ordered Date Performed Result Body Sit e 07945-WFGDYKI NAIL, 6 OR MORE 07/02/2024 N/A 67918-IFEH SKIN LESIONS, 2 TO 4 07/02/2024 N/A Encounters Encounter Location Date Provider Diagnosis [facility] [address] [place] [address] 07/02/2024 Mckinley Salgado Type 2 diabetes mellitus with diabetic peripheral angiopathy without gangrene E11.51 ; Onychomycosis B35.1 ; Pain of toe of right foot M79.674 and Pain of toe of left foot M79.675 Assessments Encounter Date Diagnosis (ICD Code) Assessment Notes Treatment Notes Treatment Clinical Notes Section Notes 07/02/2024 Type 2 diabetes mellitus with diabetic peripheral angiopathy without gangrene (ICD-10 - E11.51) 07/02/2024 Onychomycosis (ICD-10 - B35.1) 07/02/2024 Pain of toe of right foot (ICD-10 - M79.674) 07/02/2024 Pain of toe of left foot (ICD-10 - M79.675) 07/02/2024 Other Plan Of Treatment Pending Test Test Name Order Date 14088-CHYWVAR NAIL, 6 OR MORE 07/02/2024 70050-HRXV SKIN LESIONS, 2 TO 4 07/02/20 24 Next Appt Details Follow Up: prn, Reason: Provider Name:Mckinley Salgado , 01/11/2025 03:15:00 PM, [address] [place] [address], [phone], Procedure Notes * Category Sub-Category Detail Notes Debride Nail 6-10 Nail debridement Performance o f this nail treatment by a nonprofessional would put this patients foot and overall health at risk. Therefore, nail debridement was performed extensively to reduce/remove overall nail length, girth, thickness, subungual debris, and necrotic tissue, by manual and/or electrical means through the use of a nail nipper and/or dremel-type bench grinder, to a more viable healthy nail plate or bed tissue 6-10. Silver nitrate used for any petechial bleeding as necessary. Definitive antifungal treatment options have been reviewed and discussed with the patient. The patient chooses, no pharmaceutical tx - 14526 Keratoma Treatment Parring or Cutting o f Benign Hyperkeratotic Lesion(s) (-56) 2-4 Lesions - The Benign hyperkeratotic lesions, as described above were pared, and/or cut utilizing a sterile 15 blade, tissue nippers, and/or dremel - 32213 , Q8 Progress Notes * Brannon CANELADOB:1945 (78 yo M)Acc No.[id number]:07/02/2024 Progress Note Patient:?Brannon Canela Provider:?Mckinley Salgado DPM :1945???Age:78 Y???Sex:Male Robby e:07/02/2024 Address:[address] [place], [place] [id number] Pcp:Edward Ryter Subjective: * Chief Complaints: * ???At Risk FootcarePainful N ail(s) aggrevated by shoes and causing difficulty standing/walking * HPI: ???At Risk footcare:?Pt States Last PCP Visit:?Date?02/02/2024 * ROS:?General/Constitutional:?Nausea?denies.?Vomiting?denies.?Hunger Thirst?denies.?Loss appetite?denies.?Chills?denies.?Fatigue?denies.?Fever?denies.?Night Sweats?denies.?Unexplained weight loss?denies.?Ophthalmologic:?Blurred [...] 2 cups per day coffee. ?Children: yes. ?no Exercise. ?Marital status: . 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 * Medications:?TakingAllopurin ol 100 MG Tablet 1 tablet Orally Once a dayAtorvastatin Calcium 10 MG Tablet Orally aspirin baby Calcium 333mg Centrum Men Ciclopirox Olamine 0.77 % Cream 1 application to affected area Externally Twice a day, Notes: PRNEye Drops , Notes: TempLisinopril 20 MG Tablet 1 tablet Orally Once a dayLevothyroxine Sodium .05mg 1tab Once a dayMagnesium 133mg Mesalamine Tamsulosin HCl 0.4 MG Capsule Extended Release 24 Hour 1 capsule 30 minutes after the same meal each day Orally Once a day, Notes: 2 tab every fri/wedVitamin C Vitamin D 200 iu Zinc 5mg zzzCompression Stockings 20-30mm Hg 1 pair closed toe- knee high . . .Extra Depth Orthopedic Shoes, (1) Pair With (3) Pair Custom Heat Molded Multidensity Innersoles . Dx: NIDDM/PVD(E11.51), Hammertoe Foot Deformity(M20.41,M20.42), Preulcerative Skin Lesion(s)(L85.1) Wear DailyTaking Allopurinol 100 MG Tablet 1 tablet Orally Once a dayTaking Atorvastatin Calcium 10 MG Tablet Orally Taking aspirin baby Taking Calcium 333mg Taking Centrum Men Taking Ciclopirox Olamine 0.77 % Cream 1 application to affected area Externally Twice a day, Notes: PRNTaking Eye Drops , Notes: TempTaking Lisinopril 20 MG Tablet 1 tablet Orally Once a dayTaking Levothyroxine Sodium .05mg 1tab Once a dayTaking Magnesium 133mg Taking Mesalamine Taking Tamsulosin HCl 0.4 MG Capsule Extended Release 24 Hour 1 capsule 30 minutes after the same meal each day Orally Once a day, Notes: 2 tab every sun/wedTaking Vitamin C Taking Vitamin D 200 iu Taking Zinc 5mg Taking zzzCompression Stockings 20-30mm Hg 1 pair closed toe- knee high . . .Taking Extra Depth Orthopedic Shoes, (1) Pair With (3) Pair Custom Heat Molded Multidensity Innersoles . Dx: NIDDM/PVD(E11.51), Hammertoe Foot Deformity(M20.41,M20.42), Preulcerative Skin Lesion(s)(L85.1) Wear DailyNot-Taking/PRNPioglitazone HCl 45 MG Tablet 1 tablet Orally Once a daymetFORMIN HCl 500 MG Tablet Orally 2 x a dayPentasa 500 MG Capsule Extended Release 2 capsules Orally bidLatanoprost 0.005 % Solution Ophthalmic Levothyroxine Sodium 50 MCG Tablet Orally Lantus SoloStar Vitamin C Multi Vitamin Mens Delzicol Pravastatin Sodium 10 MG Tablet 1 tablet Orally Once a dayMedication List reviewed and reconciled with the patientNot-Taking/PRN Pioglitazone HCl 45 MG Tablet 1 tablet Orally Once a dayNot-Taking/PRN metFORMIN HCl 500 MG Tablet Orally 2 x a dayNot-Taking/PRN Pentasa 500 MG Capsule Extended Release 2 capsules Orally bidNot-Taking/PRN Latanoprost 0.005 % Solution Ophthalmic Not-Taking/PRN Levothyroxine Sodium 50 MCG Tablet Orally Not-Taking/PRN Lantus SoloStar Not-Taking/PRN Vitamin C Not-Taking/PRN Multi Vitamin Mens Not-Taking/PRN Delzicol Not-Taking/PRN Pravastatin Sodium 10 MG Tablet 1 tablet Orally Once a dayMedication List reviewed and reconciled with the patient * Allergies:?Advil: colitis fl areupsIbuprofenyes[Allergies Verified] Objective: * Vitals:?Ht: 5 ft 9 in, Wt:24 0, BMI:35.44, Shoe size:11.5, BP:126/75 mm Hg, BS:not taken. * ???Past Orders: ???Lab:HEMOGLOBIN A1C (GLYCO HEMOGLOBIN) (Order Date - 02/21/2023) (Collection Date - 01/27/2023) ? Value Reference Range ?HEMOGLOBIN A1C % (HH) 5.0 * Examination: ???Vascular: ?DP PULSES(B):?0/4, RIGHT , 1/4 , LEFT.?PT PULSES(B):? 0/4, B/L.?CAPILLARY FILL TIME:? delayed, all digits, B/L.?TROPHIC CONDITION-TEXTURE/ELASTICITY/TURGOR/HAIR GROWTH(B):? decreased, with sparse to absent hair growth, B/L.?TEMPERTURE GRADIENT(C):? decreased, cool to cool, proximal to distal, B/L.?PIGMENTATION:? rubrous, B/L.?EDEMA(C):? 2/4, pitting, without aching pain, B/L, Leg(s), Ankle(s), Feet.?CLAUDICATION(C):?denies, B/L.?REST PAIN:?denies, B/L.?Nails: ?NAILS are:?Elongated, overgrown, dystrophic, lytic, greater than 3mm thick, discolored and friable with crumbly malodorous subungual debris, with pain on palpation, TA, T1, T3, T4, T5, T7, T8, T9.?Dermatologic: ?SKIN FINDINGS:?Skin exam reveals Keratotic lesion(s) located at, Medial, IPJ, TA, Medial, IPJ, T5, Heel(s), B/L .? Assessment: * Assessment: 1.?Type 2 diabetes mellitus with diabetic peripheral angiopathy without gangrene - E11.51?2.?Onychomycosis - B35.1?3.?Pain of toe of right foot - M79.674?4.?Pain of toe of left foot - M79.675? Plan: * Treatment: 2.?Onychomycosis?Procedure: 93309-LZNXVAC NAIL, 6 OR MORE * Procedures:?Debride Nail 6-10:?Nail debridement?Performance of this nail treatment by a nonprofessional would put this patients foot and overall health at risk. Therefore, nail debridement was performed extensively to reduce/remove overall nail length, girth, thickness, subungual debris, and necrotic tissue, by manual and/or electrical means through the use of a nail nipper and/or dremel-type bench grinder, to a more viable healthy nail plate or bed tissue 6-10. Silver nitrate used for any petechial bleeding as necessary. Definitive antifungal treatment options have been reviewed and discussed with the patient. The patient chooses, no pharmaceutical tx - 58415.?Keratoma Treatment:?Parring or Cutting of Benign Hyperkeratotic Lesion(s)?(-56) 2-4 Lesions - The Benign hyperkeratotic lesions, as described above were pared, and/or cut utilizing a sterile 15 blade, tissue nippers, and/or dremel - 42628 , Q8.? * Procedure Codes:?45285 DEBRI DE NAIL, 6 OR MORE, Modifiers: XS 52629 TRIM SKIN LESIONS, 2 TO 4, Modifiers: XS , Q8 * Preventive Medicine:? ??Screening/Special Tests:?Fall Risk?Assessment:?Performed ?Plan of Care:?Documented ?Screening:?No falls in the past year ?FALLS: Screening for Future Fall Risk?Have you had any falls with injury in the past year??No * Follow Up:?prn * Images: * Sign off status: Completed true * Provider:?Mckinley Salgado DPM Date:?2023 Generated for Amna arias/Linda/Harvey on:?12/29/2024 08:44 AM EDT History and Physical Notes * HPI (History of Present Illness) Category Sub-Category Detail Notes Category Not es At Risk footcare Pt States Last PCP Visit: Date: 4 Examination Category Sub-Category Detail Notes Category Not es Dermatologic SKIN FINDINGS: Skin exam reveal s Keratotic lesion(s) located at, Medial, IPJ, TA, Medial, IPJ, T5, Heel(s), B/L Vascular DP PULSES (B): 0/4, [...] TA, T1, T3, T4, T5, T7, T8, T9
--- OUTSIDE RECORDS SUMMARY | 2024-12-29 08:45 | XMS_ITS ---
[facility] Address [address] [place] [address] Care Team Providers Care Hospitality Ambassador Name Role Phone Brannon Calvert Primary Care Provider Mckinley Sigala [phone] REASON FOR VISIT no show Encounters Encounter Location Date Provider Diagnosis [address] [address] 06/22/2024 Mckinley Salgado Plan Of Treatment Next Appt Details Provider Name:Mckinley Salgado , 01/11/2025 03:15:00 PM, [address] [place], [address], Progress Notes * Brannon CANELADOB:1945 (78 yo M)Acc No.[id number]:06/22/2024 Patient:?Brannon Canela :1945???Age:78 Y???Sex:Male Address:[address] [place], [address] * true * Date:? Generated for Amna arias/Linda/eTransmitting on:?12/29/2024 08:45 AM EDT
== END 2024-12-29 08:53 | disposition home or self-care (01) ==
LOC: HO.RHES 08:22
PROVIDERS: Visit Provider Internal Medicine Rheumatology
DX: M17.0 Bilateral primary osteoarthritis of knee (principal)
CPT/HCPCS: 20610; 99213

== ENCOUNTER → 2024-12-29 08:21 | Outpatient (BNVA) | payer OTHER, SELFPAY | PROVIDERS: Visit Provider Internal Medicine Rheumatology | DX: M17.0 Bilateral primary osteoarthritis of knee (principal) | CPT/HCPCS: 20610; J2003; J3300 ==

== ENCOUNTER 2025-02-08 14:34 | Outpatient (AMB) | payer OTHER, SELFPAY ==
--- NOTE | 2025-02-08 14:43 | A.OFFVIS_ITS ---
Vital Signs 02/08/25 14:44 Height 5 ft 9 in Weight 257 lb 11.526 oz BMI 38.1 BP 140/80 H Blood Pressure Location Lt brachial Position Sitting Pulse 45 L Pulse Source Pulse Oximeter Pulse Oximetry (%) 95 Oxygen Delivery Method Room Air Intake Visit Reasons: Euflexxa Intake Note: Patient presents follow up on arthritis and Euflexxa injection. Crop Production Advisor Required: No Accompanied by: Self / Same As Patient Allergies NSAIDS (Non-Steroidal Anti-Inflamma Adverse Reaction (Unknown, Verified 02/08/25 14:44) rectal bleeding HPI HPI Euflexxa: Details: Last cortisone injection to right knee was ineffective. He still is having benefit from left knee cortisone injection. He has mild pain in his left knee. Review of Systems Const All systems reviewed & are unremarkable except as noted in HPI and below Physical Exam Vital Signs: Last Vital Signs Pulse 45 L 02/08/25 14:44 BP 140/80 H 02/08/25 14:44 Pulse Ox 95 02/08/25 14:44 Oxygen Delivery Method Room Air 02/08/25 14:44 BMI result Body Mass Index 38.1 Const Other: General: Comfortable Skin: No lesions seen MSK: Tender to palpate right joint line. Mild effusion present with warmth. Limited knee flexion. Office Procedures AMB Joint Injection/Aspiration Joint Injection/Aspiration Details: Right knee joint Prep: site was prepped using aseptic technique Injected: Euflexxa was injected with 25 gauge 1-1/2 inch needle Procedure: The patient tolerated the procedure well. Postprocedure protocol was discussed with patient. Coding 63806 - Large joint Procedure code (CPT) selection complete Office Meds Euflexxa 10 mg/mL (mw 2.4-3.6 million) intra-articular syringe Performing Provider: Ashu Collier MD [place] [facility] Administered by: Ashu Collier MD on 02/08/25 20:52 Dose Route Admin Location Dispensed Lot Number Expiration Date [facility] Aluminum Polisher 20 mg intra-articular 2 mL [id number] Assessment & Plan Assessment & Plan (1) Osteoarthritis of right knee: Comment: Failed cortisone injection. Euflexxa has been approved. Code(s): M17.11 - Unilateral primary osteoarthritis, right knee Category: Medical Qualifiers: Osteoarthritis type: primary Qualified Code(s): M17.11 - Unilateral primary osteoarthritis, right knee Plan: Patient received Euflexxa injection #1 to right knee (2) Osteoarthritis of knees, bilateral: Comment: History: He received bilateral knee cortisone injections 09/2024 effective, right knee December 2024 ineffective. Right knee Euflexxa 01/2025. Low-dose gabapentin up titrated to 200 mg in the morning and 100 mg at night prescribed by PCP ineffective. Contraindication to oral NSAIDs due to history of IBD. Code(s): M17.0 - Bilateral primary osteoarthritis of knee Category: Medical Qualifiers: Osteoarthritis type: primary Qualified Code(s): M17.0 - Bilateral primary osteoarthritis of knee Plan: Patient received right knee cortisone injection RTC 1 week (3) Lumbar spondylosis: Comment: Uncontrolled knee pain exacerbates back pain. Failed Tylenol, PT for back strengthening, L-spine cortisone injections and radiofrequency ablation treated by pain management. He did not have benefit on low-dose gabapentin. Contraindication to oral NSAIDs due to history of IBD. Code(s): M47.816 - Spondylosis without myelopathy or radiculopathy, lumbar region Category: Medical Plan: Management of knee pain secondary from osteoarthritis as above. Orders: Orders AMB Joint Injection/Aspiration Today M17.11 - Unilateral primary osteoarthritis, right knee Coding Level of Care Code Est Pt Level 3 (92430) Complex EM visit Add On G2211 Diagnoses Primary osteoarthritis of right knee M17.11 Osteoarthritis type: primary Primary osteoarthritis of both knees M17.0 Osteoarthritis type: primary Lumbar spondylosis M47.816 CPT Codes Coding - 81040 Large joint: 99482 - Large joint ([id number])
[2025-02-08 14:44] VITALS: BP 140/80; PULSE 45; O2SAT 95; BMI 38.1
--- OUTSIDE RECORDS SUMMARY | 2025-02-08 17:24 | XMS_ITS ---
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 Name Role Phone Brannon Calvert Primary Care Provider Mckinley Sigala Unavailable [phone] Allergies Allergen (clinical drug ingredient) Drug/Non Drug Allergy documented on EMR Reaction Allergy Type Onset Date Status ibuprofen Advil colitis flareups Drug Allergy Active ibuprofen Ibuprofen Unknown Drug Allergy Active REASON FOR VISIT At Risk Footcare, Painful Nail(s) aggrevated by shoes and causing difficulty standing/walking, Toe Irritation Medications Medication SIG (Take, Route, Frequency, Duration) Notes Start Date End Date Status Delzicol Not-Taking Pravastatin Sodium 10 MG 1 tablet Orally Once a day Not-Taking Allopurinol 100 MG 1 tablet Orally Once a day for 30 day(s) Active Vitamin C Not-Taking Multi Vitamin Mens N ot-Taking Latanoprost 0.005 % Ophthalmic Not-Taking Levothyroxine Sodium 50 MCG Orally Not-Taking metFORMIN HCl 500 MG Orally 2 x a day Not-Taking Pentasa 500 MG 2 capsules Orally bid Not-Taking Lantus SoloStar Not- Taking Extra Depth Orthopedic Shoes, (1) Pair With (3) Pair Custom Heat Molded Multidensity Innersoles Dx: NIDDM/PVD(E11.51), Hammertoe Foot Deformity(M20.41,M20 .42), Preulcerative Skin Lesion(s)(L85.1) Wear Daily for 365 days 04/20/2024 Active Pioglitazone HCl 45 MG 1 tablet Orally O nce a day for 30 day(s) Not-Taking Zinc 5mg Active zzzCompression Stockings 20-30mm Hg . . . for . Active Vitamin D 200 iu Act russel Magnesium 133mg Acti ve Mesalamine Active Levothyroxine Sodium .05mg 1tab Once a day Active Tamsulosin HCl 0.4 MG 1 capsule 30 minut es after the same meal each day Orally Once a day for 30 day(s) 2 tab every fri/fri Active Vitamin C Active Ciclopirox Olamine 0.77 % 1 application to affected area Externally Twice a day for 30 days PRN Active Eye Drops Temp Active Centrum Men Active Lisinopril 20 MG 1 tablet Orally Once a day Active Calcium 333mg Active aspirin baby Active Atorvastatin Calcium 10 MG Orally Active Social History Tobacco Use: Social History Observation Description Date Details (start date - stop date) Never Smoker NA - NA Tobacco use other than smoking: Question Answer Notes Are you an other tobacco user? No Tobacco Control (Standard) Question Answer Notes Tobacco use: Nonsmoker Additional Findings: Tobacco non-user Current no nsmoker AUDIT-C (Standard) Question Answer Notes Did you have a drink containing alcohol in the p ast year? No Points 0 Interpretation Negative Vital Signs Height 5 ft 9 in in 01/11/2025 Weight 240 lbs 01/11/2025 BMI 35.44 kg/m2 01/11/2025 Blood pressure systolic 120 mm Hg 01/12/20 Blood pressure diastolic 75 mm Hg 025 Procedures Procedure Date Ordered Date Performed Result Body Sit e 58852-BQIKTMA NAIL, 6 OR MORE 01/11/2025 N/A 43527-EPUQ SKIN LESIONS, 2 TO 4 01/11/2025 N/A Encounters Encounter Location Date Provider Diagnosis [facility] [place] [address] [place] [address] 01/11/2025 Mckinley Salgado Type 2 diabetes mellitus with diabetic peripheral angiopathy without gangrene E11.51 ; Other hammer toe(s) (acquired), right foot M20.41 ; Onychomycosis B35.1 ; Pain of toe of right foot M79.674 ; Pain of toe of left foot M79.675 and Other hammer toe(s) (acquired), left foot M20.42 Assessments Encounter Date Diagnosis (ICD Code) Assessment Notes Treatment Notes Treatment Clinical Notes Section Notes 01/11/2025 Type 2 diabetes mellitus with diabetic peripheral angiopathy without gangrene (ICD-10 - E11.51) 01/11/2025 Other hammer toe(s) (acquired), right foot (ICD-10 - M20.41) Patient Educated with: DIABETIC FOOT CARE INSTRUCTIONS.p df (DIABETIC FOOT CARE INSTRUCTIONS.p df) 01/11/2025 Onychomycosis (ICD-10 - B35.1) 01/11/2025 Pain of toe of right foot (ICD-10 - M79.674) 01/11/2025 Pain of toe of left foot (ICD-10 - M79.675) 01/11/2025 Other hammer toe(s) (acquired), left foot (ICD-10 - M20.42) Plan Of Treatment Treatment Notes Assessment Notes Other hammer toe(s) (acquired), right fo ot Patient Educated with: DIABETIC FOOT CARE INSTRUCTIONS.pdf (DIABETIC FOOT CARE INSTRUCTIONS.pdf) Pending Test Test Name Order Date 37594-SQOMJQO NAIL, 6 OR MORE 01/11/2025 53284-PZVV SKIN LESIONS, 2 TO 4 01/12/20 Next Appt Details Follow Up: prn, Reason: Provider Name:Mckinley Salgado , 04/04/2025 02:30:00 PM, [address] [facility], [address], [place], [address], Procedure Notes * Category Sub-Category Detail Notes [...] T1, T3, T4, T5, T7, T8, T9 ), was performed exclusively by the physician of record to reduce/remove overall nail length, girth, thickness, subungual debris, and necrotic tissue, by manual and/or electrical means through the use of a nail nipper and/or dremel-type terrazzo grinder, to a more viable healthy nail [...] to maintain effectiveness in symptomatic relief - 09575 Keratoma Treatment Parring or Cutting o f [...] instrumentation by the physician of record - 71358, Q8 Progress Notes * Brannon CANELADOB:1945 (79 yo M)Acc No.[id number]:01/11/2025 Progress Note Patient:?Brannon CANELA Provider:?Mckinley Salgado DPM :1945???Age:79 Y???Sex:Male Robby e:01/11/2025 Address:[address] [place], [place] [id number] Pcp:Brannon Calvert Subjective: * Chief Complaints: * ???At Risk FootcarePainful N ail(s) aggrevated by shoes and causing difficulty standing/walkingToe Irritation * HPI: ???At Risk footcare:?Pt States Last PCP Visit:?Date?10/05/2024 ???Toe pain:?Location:?B/L feet.?Duration:?several years.?Course:?worse.?Aggravated by:?shoes, any pressure.?Treatments:?change in shoes.? * ROS:?General/Constitutional:?Nausea?denies.?Vomiting?denies.?Hunger Thirst?denies.?Loss appetite?denies.?Chills?denies.?Fatigue?denies.?Fever?denies.?Night Sweats?denies.?Unexplained weight loss?denies.?Ophthalmologic:?Blurred vision?denies.?Red eye?denies.?HEENTM:?Dentures?denies.?Dizziness?denies.?Glasses/contacts?admits.?Retinopathy?den ies.?Blurred/double vision?denies.?TMJ?denies.?Discharge/drainage?denies.?Implants?denies.?Hard of hearing admits.?Difficulty chewing/swallowing/speaking?denies.?Nose bleeds?denies.?Sore mouth?denies.?Swollen glands?denies.?Respiratory:?On O xygen?denies.?Pneumonia/pleurisy?denies.?Bronchitis?denies.?Emphysema?denies.?Co ughing?denies.?Cough blood?denies.?Shortness of breath?denies.?Wheezing?denies.?Cardiovascular:?Pacemaker?denies.?MVP?denies.?WPW?denies.?CHF?denies.?Heart attack?denies.?Septal defect?denies.?Rapid beat?denies.?Chest pain ?denies.?Atrial Fib.?denies.?Murmur/Palpitations?denies.?Gastrointestinal:?Hemorrhoids?denies.?Stomach/Abdominal pain?denies.?Dark blood stool?denies.?Irritable bowel ?admits.?Constipation?denies.?Diarrhea?denies.?Vomiting?denies.?Hematology:?Swelling?admits.?Bruising?denies.?Bleeding problem?denies.?Genitourinary:?Blood urine?denies.?Frequent/Painfu/urination/bladder control?denies.?Kidney stones?admits.?Infection (UTI)?denies.?Nephropathy?denies.?Musculoskeletal:?Hammertoes?admits.?Bunions?denies.?Scoliosis/kyphosis?denies.?Muscle cramps / walking?denies.?Generalized aches and pains?denies.?Weakness?denies.?Integ.:?Merida?denies.?Scars?denies.?Corns/calluses?admits.?Ingrown nails?admits.?Painful nails?admits.?Rashes?denies.?Neurologic:?Difficulty sleeping?denies.?Bipolar?denies.?Brain disorder?denies.?Balance t rouble?denies.?Confusion?denies.?Fainting/blackouts?denies.?Headache?denies.?Carlo mors?denies.? * Medical History:? * Surgical History:?appendecto my 2010eye surgery - eyelidectomy 2011Bil cataract surgery 10/23/22,11/06/22 * Hospitalization/Major Diagno stic Procedure:?Denies Past Hospitalization * Family History:?Mother: dece ased, diagnosed with Other malignant neoplasm of unspecified site.?Father: , diagnosed with Unspecified heart disease.? * Social History:?Tobacco Use:?Tobacco use other than smoking?Are you an other tobacco user??No ?Tobacco Control (Standard)?Tobacco use:?Nonsmoker ?Additional Findings: Tobacco non-user?Current nonsmoker ???Drugs/Alcohol:?Drugs?Have you used drugs other than those for medical reasons in the past 12 months??No ???Miscellaneous:?Caffeine: yes, frequency:, 10-12 oz 2 cups per day coffee. ?Children: yes. ?Exercise: no. ?Marital status: . 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 ???Drug/Alcohol:?AUDIT-C (Standard)?Did you have a drink containing alcohol in the past year??No ?Points?0 ?Interpretation?Negative * Medications:?TakingAllopurin ol 100 MG Tablet 1 [...] , Notes to Pharmacist: 2 tab every sun/friVitamin C Vitamin D 200 iu Zinc 5mg [...] BP:120/75mm Hg, BS:not taken, Wt-k.86 kg. * ???Past Orders: ???Lab:HEMOGLOBIN A1C (GLYCO HEMOGLOBIN) (Order Date - 09/20/2024) (Collection Date & Time - 01/11/2025 03:32 PM) ? Value Reference Range ?HEMOGLOBIN A1C % (HH) 6.0 * Examination: ???Ophthalmology Referral: ?DIABETES EYE EXAM?Procedure Performed:?Yes ?Date of Exam Performed?12/02/2024 ?Diabetic Retinopathy Screening:?Yes ?Retinal Screening Performed:?Yes ?Findings of Diabetic Eye Exam:?no retinopathy?Vascular: ?DP PULSES (B):?0/4, RIGHT , 1/4 , [...] TA, Medial, IPJ, T5, Plantar, Heel(s), B/L .?Orthopedic: ?MUSCLE STRENGTH:?5/5 all groups in a symmetrical fashion , B/L.?FOOT MORPHOLOGY:?Pes Planus structure , (-) Charcot collapse/destruction noted at MTJ.?DIGITAL DEFORMITIES:?Digital contracture, PIPJ, 2-5 B/L, incompl-reducible to push-up test, no over, nor underlapping,?with evidence of shoe producing skin irritation.?FOOTWEAR:?worn, OT were inspected and noted to be severely worn , in poor condition not giving proper support at the present time , shoe gear properties exacerbate patients foot/toe deformity.?Neurological: ?SENSORY:?Neurological exam reveals intact sensorium, pain sensation normal, vibration sensation intact, pinprick sensation is normal in the lower extremities, Pt denies, anesthesia, burning, paresthesia, tingling, B/L, 5.07 monofilament test performed at plantar aspects of 5 varied sites per foot shows sensation, normal, B/L.?General Examination: ?GENERAL APPEARANCE:?Reveals a pleasant, alert, well nourished, well developed, well hydrated individual, who demonstrates proper attention to hygiene/body habitus, and is in no acute distress , Pt serves as own historian for office visit today.?ORIENTED:?person, place, and time.?FOOT EXAM:?Lower Extremity Neurological Exam performed:?Yes ?Visual exam of foot performed:?Yes ?Date?01/11/2025 ?Footwear Evaluation?Footwear Evaluation performed:?Yes??? Assessment: * Assessment: 1.?Other hammer toe(s) (acqu ired), right foot - M20.41 (Primary)???Specify :Chronic problem, Worse (4)???2.?Type 2 diabetes mellitus with diabetic peripheral angiopathy without gangrene - E11.51???Specify :Q8???3.?Onychomycosis - B35.1???4.?Pain of toe of right foot - M79.674???5.?Pain of toe of left foot - M79.675???6.?Other hammer toe(s) (acquired), left foot - M20.42???Specify :Chronic problem, Worse (4)??? Plan: * Treatment: 2.?Type 2 diabetes mellitus with diabetic peripheral angiopathy without gangrene?Procedure: 36386-QJFM SKIN LESIONS, 2 TO 4 3.?Onychomycosis?Procedure: 32555-NOTAOTG NAIL, 6 OR MORE * Procedures:?Debride Nail 6-10:?Nail debridement?Due to the clinical pathology outlined in the exam findings, performance of this nail treatment is medically necessary as its management by an unskilled/untrained nonprofessional would put this patients foot and overall health at risk. Therefore, debridement to affected nail(s), as described in exam (?TA,?T1,?T3,?T4,?T5,?T7,?T8,?T9?), was performed exclusively by the physician of record to reduce/remove overall nail length, girth, thickness, subungual debris, and necrotic tissue, by manual and/or electrical means through the use of a nail nipper and/or dremel-type terrazzo grinder, to a more viable healthy nail [...] to maintain effectiveness in symptomatic relief - 59630.?Keratoma Treatment:?Parring or Cutting of Benign Hyperkeratotic Lesion(s)?(-56) [...] instrumentation by the physician of record - 21267, Q8.? * Procedure Codes:?38143 DEBRI DE NAIL, 6 OR MORE, Modifiers: XS 13533 TRIM SKIN LESIONS, 2 TO 4, Modifiers: XS , Q8 * Preventive Medicine:? ??Counseling:?Discussion:?-13: Office or other outpatient visit for the evaluation and management of an established patient, which required a medically appropriate history and/or examination and LOW level of DECISION MAKING for: 1 STABLE ACUTE UNCOMPLICATED PROBLEM, 2 OR MORE MINOR PROBLEMS, OR 1 STABLE CHRONIC PROBLEM, THAT POSE(S) A LOW RISK FOR MORBIDITY/MORTALITY. The visit on the day of the encounter encompassed interpreting the data and educating the patient as to the nature of their condition, treatment options available according to their individual PMH, meds, allergies, and overall health/living conditions, as well as any potential risks or complications that may occur from a failure to adhere to, and participate in, the recommended course of therapy. The discussion included a complete verbal, and/or written explanation of the examination results, any x-rays taken, the proposed diagnosis, and outline of the treatment plan. A schedule for future care needs was also explained. The patient verbalized an understanding of the instructions at this time and agreed to be an active participant in their treatment. If the patient should think of any questions or concerns after the visit, I have encouraged the patient to call the office.?Diabetic Footcare:?The patient was advised against future self nail/callus care due to inherent risks for infection, loss of limb/life given diabetic, peripheral vascular disease.?Digital Surgery:?Digital surgery was discussed with the patient, We elected to try conservative treatment at the present time, due to the patients medical history and increased asssociated post-operative risks.?Digital Treatment:?HT- I explained to the patient the possible etiologies of Hammertoes, including genetics/foot type/shoegear/activity level/exercise routine and the risks/benefits of all the different treatment options for their pain including: No treatment at all, Rest, Ice, New/supportive/wider/deeper Shoegear, Digital Padding/Strapping/Taping/Bracing/Gel protective sleeves, Foot/Ankle AFO Bracing, Stretching exercises, Deep Tissue Massage, Arch support/shoe inserts with splay metatarsal padding, and Custom orthoses. I insisted that any digital devices be removed daily and not worn overnight for safety. The patient is to carefully examine the toes daily for any skin irritation while using any splinting or padding device. The advantages and disadvantages of each option were discussed and the patients questions re: shoegear, padding, custom vs prefabricated inserts, activity level, and consistency in home treatment regimens for optimal success were answered to their verbally confirmed satisfaction.?Shoe Gear Counseling:?SHOE Rx - The patient was counseled in great detail on their muscoloskeletal foot and toe deformities which coincided with the dermatological presentations visualized on exam. We discussed how their deformities put the integrity of their feet at risk for potential pedal complications which makes the accomidative diabetic shoes and cutomizable inserts medically necessary. We discussed the different shoe and insert treatment types and options, as well as the important advantages for adhering to regularly wearing these accomidative devices daily. The patient was made aware of the fact that a failure to abide by these recommedations may be deleterious to their foot health as they are able to prevent many pedal complications such as skin irritation, skin ulceration, infection, and even loss of toe/foot/leg/or life. Time was also spent with the patient dispensing and discussing proper diabetic footcare techniques including daily skin moisturization, daily foot inspection for any interruption in skin integrity including open lesions, or sign of infection such as redness/malodor/drainage/swelling. Also discussed and recommended were procedures regarding daily shoe inspection for the presence of internal foreign bodies as well as any visualized irregular shoe or insert wear. Patient questions re: shoes, inserts, and self foot inspections were answered to their satisfaction as the patient verbally confirmed a full understanding of the above information, Patient DEFERS recommended Extra Depth Orthopedic pressure-accommodative shoes against medical advice.? ??Screening/Special Tests:?Fall Risk?Screening:?No falls in the past year ?FALLS: Screening for Future Fall Risk?Have you had any falls with injury in the past year??No * Follow Up:?prn * Images: * Sign off status: Completed true * Provider:?Mckinley Salgado DPM Date:?2024 Generated for Amna arias/Linda/Harvey on:?02/08/2025 05:24 PM EDT History and Physical Notes * HPI (History of Present Illness) Category Sub-Category Detail Notes Category Not es Toe pain Location: B/L feet Duration: several years Course: worse Aggravated by: shoes, any pressure Treatments: change in shoes At Risk footcare Pt States Last PCP Visit: Date: 4 Examination Category Sub-Category Detail Notes Category Not es Neurological SENSORY: Neurological exa m reveals intact sensorium, pain sensation normal, vibration sensation intact, pinprick sensation is normal in the lower extremities, Pt denies, anesthesia, burning, paresthesia, tingling, B/L, 5.07 monofilament test performed at plantar aspects of 5 varied sites per foot shows sensation, normal, B/L Dermatologic SKIN FINDINGS: Skin exam reveal s Keratotic lesion(s) located at, Medial, IPJ, TA, Medial, IPJ, T5, Plantar, Heel(s), B/L Orthopedic FOOT MORPHOLOGY: Pes Planus stru cture , (-) Charcot collapse/destruction noted at MTJ FOOTWEAR EVALUATION: worn, OT were inspe cted and noted to be severely worn , in poor condition not giving proper support at the present time , shoe gear properties exacerbate patients foot/toe deformity DIGITAL DEFORMITIES: Digital contracture , PIPJ, 2-5 B/L, incompl-reducible to push-up test, no over, nor underlapping, with evidence of shoe producing skin irritation MUSCLE STRENGTH: 5/5 all groups in a symmetrical fashion , B/L General Examination GENERAL APPEARANCE: Reveals a pleasant, alert, well nourished, well developed, well hydrated individual, who demonstrates proper attention to hygiene/body habitus, and is in no acute distress , Pt serves as own historian for office visit today FOOT EXAM: Lower Extremity Neurological Exa m performed:: Yes Visual exam of foot performed:: Yes Date: 01/11/2025 ORIENTED: person, place, and t edelmira Footwear Evaluation Footwear Evaluation performe d:: Yes Ophthalmology Referral DIABETES EYE EXAM Procedure Perform ed:: Yes ?Date of Exam Performed: 12/02/2024 Diabetic Retinopathy Screening:: Yes Retinal Screening Performed:: Yes Findings of Diabetic Eye Exam:: no retin opathy Vascular DP PULSES (B): 0/4, RIGHT , [...]
--- OUTSIDE RECORDS SUMMARY | 2025-02-08 17:24 | XMS_ITS | Encounter Summary ---
Author Name [facility] [place] [facility] [place] Address [address] [place] [address] Care Team Providers Care Representative Personal Service Name Role Phone DYLAN GRANDA Primary Care [...] Novoa's Name Patient's Relationship to Policy Novoa [facility]) MEDICARE ADVANTAGE MCR ([facility]) Aug 20, 2014 [id number] [phone] PATIENT [facility] ([facility]) MEDICARE ADVANTAGE MCR ([facility]) Aug 20, 2014 [id number] PATIENT [facility] ([facility]) MEDICARE ADVANTAGE MCR ([facility]) Aug 20, 2014 [id number] PATIENT Selected Encounter This section includes the information on record at [place] for the Encounter. Date/Time Encounter Type Encounter Description Reason Provider Source Jun 09, 2024 09:00 AM OFFICE O/P EST MOD 30 MIN PRIMARY CARE/MEDICINE ICD-10-CM Z00.01 Encounter for general adult medical exam w abnormal findings STACY COLE Jose Encounter Template Text not used by [place] Assessments - Encounter Diagnoses This section includes the primary and secondary diagnoses documented for the Encounter. Date/Time Primary/Secondary Diagnosis Diagnosis Name Provider Source Jun 09, 2024 09:55 AM PRIMARY Encounter for general adult medical exam w abnormal findings LIZ COLE [facility] Jun 09, 2024 09:55 AM SECONDARY Obesity, unspecified DOUGLAS,LIZ [facility] Jun 09, 2024 09:55 AM SECONDARY Pain in unspecified knee DOUGLAS,[facility] Plan of Treatment: Future Appointments (+ 6 months) and Future Tests (+/- 45 days) The Plan of Treatment section includes future care activities for the patient from [facility] [place] [facility] This section includes future appointments and future orders which are active, pending or scheduled. Future Appointments This section includes appointments that were scheduled to occur 6 months from the date of the Encounter, up to a maximum of 20 appointments. The data comes from all [facility]. Appointment Date/Time Appointment Type Appointme nt Facility Name Jun 17, 2024 09:30 AM AMBULATORY - REHAB MEDICIN [facility] Jul 22, 2024 11:00 AM AMBULATORY - REHAB MEDICIN [facility] Aug 17, 2024 10:00 AM AMBULATORY - REHAB MEDICIN [facility] Active, Pending, and Scheduled Orders This section includes a listing of several types of active, pending, and scheduled orders, including clinic medications orders, diagnostic test orders, procedure orders and consult orders; where the start date of the order is 45 days before the date of the Encounter or 45 days after the date of theEncounter. The data comes from all [facility]. Test Date/Time Test Type Test Details Facility Name May 27, 2024 12:00 AM Laboratory - Chemistry Order BASIC METABOLIC PANEL (fasting) BLOOD (SST-SERUM) [facility] May 27, 2024 12:00 AM Laboratory - Chemistry Order LIPID PANEL FASTING BLOOD (SST-SERUM) [facility] May 27, 2024 12:00 AM Laboratory - Chemistry Order CBC AND DIFF (AUTO) BLOOD (LAV-BLOOD) [facility] May 27, 2024 12:00 AM Laboratory - Chemistry Order LIVER FUNCTION BLOOD (SST-SERUM) [facility] May 27, 2024 12:00 AM Laboratory - Chemistry Order HEMOGLOBIN A1C PANEL BLOOD (LAV-BLOOD) [facility] May 27, 2024 12:00 AM Laboratory - Chemistry Order MICROALBUMIN CREATININE RATIO PANEL URINE (RANDOM) [facility] May 27, 2024 12:00 AM Laboratory - Chemistry Order TSH BLOOD (SST-SERUM) [facility] Jun 09, 2024 12:00 AM Laboratory - Chemistry Order OCCULT BLOOD FIT X1 SCREEN(IN-HOUSE) STOOL FECES [facility] Social History: Smoking Status (Most current) and Tobacco Use (All prior to encounter date) This section includes the most current, and the historical, smoking and tobacco- related health factors from the [place] facility where the Encounter took place. Current Smoking Status This section includes the most current smoking, or tobacco-related health factor, from the [place] facility where the Encounter took place. Date/Time Current Smoking Status Comment Facil ity Jun 09, 2024 09:00 AM [place]-TOBACCO FORMER USER [facility] Tobacco Use History This section includes a history of the smoking, or tobacco-related health factors, that were collected on or before the date of the Encounter. The data comes from the [place] facility where the Encounter took place. Date/Time Smoking Status/Tobacco Use Comment F acility Jun 09, 2024 09:00 AM [place]-TOBACCO QUIT 15 YRS OR MORE [facility] Jun 10, 2023 09:00 AM VA-TOBACCO FORMER USER [facility] Jun 10, 2023 09:00 AM VA-TOBACCO QUIT 15 YRS OR MORE [facility] Jun 10, 2022 10:00 AM VA-TOBACCO FORMER USER [facility] Jun 10, 2022 10:00 AM VA-TOBACCO QUIT 15 YRS OR MORE [facility] Jun 14, 2020 09:00 AM VA-TOBACCO FORMER USER [facility] Jun 14, 2020 09:00 AM VA-TOBACCO QUIT 15 YRS OR MORE [facility] Dec 25, 2018 12:05 PM VA-TOBACCO FORMER USER [facility] Dec 25, 2018 12:05 PM [place]-TOBACCO QUIT 15 YRS OR MORE [facility] Apr 28, 2018 09:05 AM QUIT TOBACCO USE > 7 YEARS AGO [facility] Dec 11, 2015 03:14 PM QUIT TOBACCO USE > 7 YEARS AGO [facility] May 01, 2010 01:18 PM QUIT TOBACCO USE > 7 YEARS AGO stopped tobacco 1998 [facility] Advance Directives: All historical and current Section [...] Jul 09, 2010 ADVANCE DIRECTIVE [facility] Encounter Notes: All associated encounter notes [...] COMPLETED Please request the followin.Last Colonoscopy from [facility]. 2.Last Foot Exam from: [facility] [phone] 3.Last Eye Exam from: Dr. Hui Sandoval 4.Last Lab results from: Brannon Calvert MD Phone: [phone] Thanks! /es/ HASEEB VILLAVICENCIO LPN LPN Signed: 06/09/2024 09:28 Receipt Acknowledged By: 06/09/2024 10:22 /es/ LAYLA EUGENE --- Original Document --- 06/09/24 CLINICAL REMINDERS/NURSING: Advance Directive Screen MH AD: Patient has an Advance Directive on file at this [facility]. No updates are needed at this time. The patient received education about Advance Directives and written notification of his/her rights. Suicide Screen: C-SSRS Screening Wann Suicide Severity Rating Scale (C-SSRS) screener 1. [...] Telehealth (CCHT) Referral: [facility] at [facility]. Tobacco [...] full rights to use it throughout the [place] system. PRIMARY SCREEN RESULT: The Primary Screen [...] Patient declined limb care exam. Comment: completed [facility]. RECORDS REQUESTED The patient was advised the [place] mandates all patients with diabetes mellitus, end [...] Signed: 06/09/2024 09:22 06/09/2024 ADDENDUM STATUS: COMPLETED Medical Device Engineer requested last colonoscopy, most recent labs, last eye exam, & last foot exam. /rodolfo/ LAYLA PAINTER [facility] Signed: 06/09/2024 10:22 HASEEB VILLAVICENCIO [facility] Jun 09, 2024 09:16 AM PREVENTIVE MEDICIN E NURSING NOTE: LOCAL TITLE: CLINICAL REMINDERS/NURSING STANDARD TITLE: PREVENTIVE MEDICINE NURSING NOTE DATE OF NOTE: JUN 09, 2024@09:16 ENTRY DATE: JUN 09, 2024@09:16:40 AUTHOR: HASEEB VILLAVICENCIO COSIGNER: URGENCY: STATUS: COMPLETED CLINICAL REMINDERS/NURSING Has ADDENDA Advance Directive Screen MH AD: Patient has an Advance Directive on file at this [facility]. No updates are needed at this time. The patient received education about Advance Directives and written notification of his/her rights. Suicide Screen: C-SSRS Screening Wann Suicide Severity Rating Scale (C-SSRS) screener 1. [...] Telehealth (CCHT) Referral: [facility] at this time. Tobacco [...] full rights to use it throughout the [place] system. PRIMARY SCREEN RESULT: The Primary Screen [...] RECORDS REQUESTED The patient was advised the [place] mandates all patients with diabetes mellitus, end stage renal disease, peripheral vascular disease, or sensory neuropathy should have a complete foot check completed annually. This includes a visual exam of the skin, pedal pulses and a sensory exam. Patients with any abnormality noted during the foot check should be referred to a specialist. MED REC COMPLETED BY PROVIDER DURING THE VISIT. /reginald VILLAVICENCIO LPN LPN Signed: 06/09/2024 09:22 06/09/2024 ADDENDUM STATUS: COMPLETED Please request the followin.Last Colonoscopy from [facility]. 2.Last Foot Exam from: [facility] [phone] 3.Last Eye Exam from: Dr. Hui Sandoval 4.Last Lab results from: Brannon Calvert MD Phone: [phone] Thanks! /reginald VILLAVICENCIO LPN LPN Signed: 06/09/2024 09:28 Receipt Acknowledged By: 06/09/2024 10:22 /rodolfo/ LAYLA EUGENE 06/09/2024 ADDENDUM STATUS: COMPLETED Medical Device Engineer requested last colonoscopy, most recent labs, last eye exam, & last foot exam. /reginald EUGENE Signed: 06/09/2024 10:22 06/10/2024 ADDENDUM STATUS: COMPLETED Hemoglobin A1C: Colby had HBA1C result from another health care site (results required). Date: June 04, 2024 Results: NORMAL( SEE RECORD) Diabetes: Kidney Health Evaluation: Last eGFR: EGFR No data available for: eGFR(CKD-EPI 2020) eGFR Last uACR: No uACR found within the past year eGFR and uACR (estimated Glomerular Filtration Rate and Urine Albumin-Creatinine Ratio)* Previous eGFR completed at a location other than this [place] Previous eGFR with actual (numerical) results Date: [...] on left and right foot, onychomycosis) SEE [facility] RECORD Hemoglobin A1C: had HBA1C result from another health care site (results required). Date: June 04, 2023 Location: Outside Healthcare Provider Results: 5.5 Diabetes: Kidney Health Evaluation: Last eGFR: MAY 29 OF 66 ([facility]) CR 1.1 EGFR No data available for: eGFR(CKD-EPI 2020) eGFR Last uACR: No uACR found within the past year Previous LAB creatinine completed at a [facility] other than [facility]: Date of Test: May 29, 2023 Location: Outside Healthcare Provider Creatinine 1.1 ([facility]) Eye Care At-Risk Screen : Patient [...] Ordered: Eye exam completed elsewhere by an Roofing Sales Representative or Finishing Room Supervisor Diabetic retinal exam result: Results Unknown (recommended [...] REQUIRE GLASSES TO READ. SEE REPORT FROM [facility] RECORDS FROM /es/ HASEEB VILLAVICENCIO LPN LPN Signed: 06/16/2024 11:30 HASEEB VILLAVICENCIO [facility] Jun 09, 2024 08:45 AM PHYSICIAN NOTE: [...] XRT and will be resleased soon from [facility]. Lives with spouse. Daughters in [place], [place]; son in [facility] Has appointment with nonVA PCP next month Problem list and medications reviewed. Last Labs: outside labs Active problems - Computerized Problem List is the source for the followin. Gout on allopurinol 2. Outside PCP Dr. Constantin Andrea [facility] Medicine 3. Opthalmology Dr. Ritesh Hernandez Last Eye Exam 05/01/2020 4. Ulcerative colitis 5. Gout Diagnosed by Dr. Roland Andrea who works for [facility] ph 6. Type 2 diabetes mellitus PCP-Dr.Nathan Andrea 7. Osteoarthritis of knee NEOS 8. Chronic neck pain treated by capsaicin cream 9. Hypothyroidism (SCT [id number]) Discovered on bloodwork in Sep 2017 10. Inflammation of sacroiliac joint Dr. Appiah [facility], Also referred to [facility] Dr. Cardona MRI [facility] 08/2015 L3-L4 severe central spinal stenosis 11. Sleep apnea 12. Hyperglycemia * 13. Obesity * 14. Pure hypercholesterolemia * 15. Ulcerative colitis Nov 2016-repeat colonoscopy- 3 benign polyps and no active UC-due again in 2019 GI- Colonoscopies X 4: Ulcerative Colitis: 2009: Polyp X 1 Fazal BARRIOS: [facility]: Stated he does not have UC 16. Essential hypertension (SNOMED CT [id number]) 17. 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 Patient circumstances at this time is [...] MD PHYSICIAN Signed: 06/09/2024 09:55 MICHA COLE [facility]
--- OUTSIDE RECORDS SUMMARY | 2025-02-08 17:24 | XMS_ITS ---
Author Organization [facility] Gaby [place]iz [place] Address [address] [place] [address] Care Team Providers Care Sumac Tanner Name Role Phone Brannon Calvert Primary Care Provider Mckinley Sigala Unavailable [phone] Allergies Allergen (clinical drug ingredient) Drug/Non Drug [...] Ordered Date Performed Result Body Sit e 61875-ANOYWPC NAIL, 6 OR MORE 10/08/2024 N/A 75425-LBRY SKIN LESIONS, 2 TO 4 10/08/2024 N/A Encounters Encounter Location Date Provider Diagnosis [facility] [address] [address] 10/08/2024 Mckinley Salgado Type 2 diabetes mellitus [...] Treatment Pending Test Test Name Order Date 25417-DVFWMPX NAIL, 6 OR MORE 10/08/2024 40284-OBEK SKIN LESIONS, 2 TO 4 10/08/20 24 Next Appt Details Follow Up: prn, Reason: Provider Name:Mckinley Salgado , 04/04/2025 02:30:00 PM, [address], [place], [address], Procedure Notes * Category Sub-Category Detail Notes [...] use of a nail nipper and/or dremel-type sapphire stylus grinder, to a more viable healthy nail [...] to maintain effectiveness in symptomatic relief - 34529 Keratoma Treatment Parring or Cutting o f [...] instrumentation by the physician of record - 34803, Q8 Progress Notes * Brannon CANELADOB:1945 (78 yo M)Acc No.[id number]:10/08/2024 Progress Note Patient:?Brannon CANELA Provider:?Mckinley Salgado DPM :1945???Age:78 Y???Sex:Male Robby e:10/08/2024 Address: [place]-[address] Pcp:Brannon Calvert Subjective: * Chief Complaints: [...] foot - M79.675??? Plan: * Treatment: 2.?Onychomycosis?Procedure: 91553-AAUIWJQ NAIL, 6 OR MORE * Procedures:?Debride Nail [...] use of a nail nipper and/or dremel-type sapphire stylus grinder, to a more viable healthy nail [...] to maintain effectiveness in symptomatic relief - 28561.?Keratoma Treatment:?Parring or Cutting of Benign Hyperkeratotic Lesion(s)?(-56) [...] instrumentation by the physician of record - 40081, Q8.? * Procedure Codes:?14365 DEBRI DE NAIL, 6 OR MORE, Modifiers: XS 95415 TRIM SKIN LESIONS, 2 TO 4, Modifiers: XS , Q8 * Follow Up:?prn * Images: * Sign off status: Completed true * Provider:?Mckinley Salgado DPM Date:?2023 Generated for Amna arias/Linda/Harvey on:?02/08/2025 05:24 PM [...]
--- OUTSIDE RECORDS SUMMARY | 2025-02-08 17:24 | XMS_ITS | Patient Health Record ---
Author Organization [facility] [place] Address [address] [place] [address] Care Team Providers Care Surg Nurse Name Role Phone Brannon Calvert Primary Care Provider Mckinley Sigala Unavailable [phone] Allergies Allergen (clinical drug ingredient) Drug/Non Drug Allergy documented on EMR Reaction Allergy Type Onset Date Status ibuprofen Advil colitis flareups Drug Allergy Active ibuprofen Ibuprofen Unknown Drug Allergy Active Results Component Value Reference Range Notes HEMOGLOBIN A1C (GLYCOHEMOGLO BIN) Reviewed date:01/11/2025 03:32:51 PM Interpretation: Performing Lab: Notes/Report: HEMOGLOBIN A1C % (HH) 6.0 Reason For Referral No Information Medications Medication SIG (Take, Route, Frequency, Duration) Notes Start Date End Date Status Vitamin D 200 iu Act russel Tamsulosin HCl 0.4 MG 1 capsule 30 minut es after the same meal each day Orally Once a day for 30 day(s) 2 tab every fri/wed Active Vitamin C Active Extra Depth Orthopedic Shoes, (1) Pair With (3) Pair Custom Heat Molded Multidensity Innersoles Dx: NIDDM/PVD(E11.51), Hammertoe Foot Deformity(M20.41,M20 .42), Preulcerative Skin Lesion(s)(L85.1) Wear Daily for 365 days 04/20/2024 Active Pioglitazone HCl 45 MG 1 tablet Orally O nce a day for 30 day(s) Not-Taking Zinc 5mg Active zzzCompression Stockings 20-30mm Hg . . . for . Active Latanoprost 0.005 % Ophthalmic Not-Taking Levothyroxine Sodium 50 MCG Orally Not-Taking metFORMIN HCl 500 MG Orally 2 x a day Not-Taking Pentasa 500 MG 2 capsules Orally bid Not-Taking aspirin baby Active Calcium 333mg Active Allopurinol 100 MG 1 tablet Orally Once a day for 30 day(s) Active Lantus SoloStar Not- Taking Atorvastatin Calcium 10 MG Orally Active Vitamin C Not-Taking Ciclopirox Olamine 0.77 % 1 application to affected area Externally Twice a day for 30 days PRN Active Eye Drops Temp Active Delzicol Not-Taking Centrum Men Active Pravastatin Sodium 10 MG 1 tablet Orally Once a day Not-Taking Magnesium 133mg Acti ve Mesalamine Active Lisinopril 20 MG 1 tablet Orally Once a day Active Levothyroxine Sodium .05mg 1tab Once a day Active Multi Vitamin Mens N ot-Taking Immunizations Vaccine Route Administration Date Status Comme [...] ast year? No Points 0 Interpretation Negative Problems Problem Type SNOMED Code ICD Code Onset Dates Problem Status W/U Status Risk Notes Problem Acquired hammer toe of right foot (0347630862958 105) Other hammer toe(s) (acquired), right foot (M20.41) Active confirmed Unchanged Problem Type 2 diabetes mellitus with peripheral angiopathy (828237799) Type 2 diabetes mellitus with diabetic peripheral angiopathy without gangrene (E11.51) Active confirmed Problem Acquired hammer toe of left foot (0278508739313 103) Other hammer toe(s) (acquired), left foot (M20.42) Active confirmed Unchanged Vital Signs Blood pressure diastolic 75 mm Hg 01/11/2025 Height 5 ft 9 in in 01/11/2025 Blood pressure systolic 120 mm Hg 01/11/2025 Weight 240 lbs 01/11/2025 BMI 35.44 kg/m2 01/11/2025 Procedures Procedure Date Ordered Date Performed Result Body Sit e 59087-JRDCLMC NAIL, 6 OR MORE 02/13/2024 N/A 73526-QGOX SKIN LESIONS, 2 TO 4 02/13/2024 N/A 65473-ZTDYOER NAIL, 6 OR MORE 04/20/2024 N/A 35300-YLFH SKIN LESIONS, 2 TO 4 04/20/2024 N/A 05909-UAGJRFJ NAIL, 6 OR MORE 07/02/2024 N/A 44257-OJSH SKIN LESIONS, 2 TO 4 07/02/2024 N/A 04517-ZFVYEBY NAIL, 6 OR MORE 10/08/2024 N/A 13421-CJXA SKIN LESIONS, 2 TO 4 10/08/2024 N/A 21241-BEGVSCW NAIL, 6 OR MORE 01/11/2025 N/A 34990-KYGP SKIN LESIONS, 2 TO 4 01/11/2025 N/A Encounters Encounter Location Date Provider Diagnosis [address] [address] 02/13/2024 Mckinley Salgado Type 2 diabetes mellitus with diabetic peripheral angiopathy without gangrene E11.51 ; Onychomycosis B35.1 ; Pain of toe of right foot M79.674 and Pain of toe of left foot M79.[address] [address] 04/20/2024 Mckinley Salgado Type 2 diabetes mellitus with diabetic peripheral angiopathy without gangrene E11.51 ; Onychomycosis B35.1 ; Pain of toe of right foot M79.674 ; Pain of toe of left foot M79.675 ; Other hammer toe(s) (acquired), right foot M20.41 and Other hammer toe(s) (acquired), left foot M20.[address] [address] 07/02/2024 Mckinley Salgado Type 2 diabetes mellitus with diabetic peripheral angiopathy without gangrene E11.51 ; Onychomycosis B35.1 ; Pain of toe of right foot M79.674 and Pain of toe of left foot M79.[address] [address] 10/08/2024 Mckinley Salgado Type 2 diabetes mellitus with diabetic peripheral angiopathy without gangrene E11.51 ; Onychomycosis B35.1 ; Pain of toe of right foot M79.674 and Pain of toe of left foot M79.[address] [address] 01/11/2025 Mckinley Salgado Type 2 diabetes mellitus with diabetic peripheral angiopathy without gangrene E11.51 ; Other hammer toe(s) (acquired), right foot M20.41 ; Onychomycosis B35.1 ; Pain of toe of right foot M79.674 ; Pain of toe of left foot M79.675 and Other hammer toe(s) (acquired), left foot M20.[address] [address] 06/22/2024 Mckinley Naomi Assessments Encounter Date Diagnosis (ICD Code) Assessment [...] - E11.51) 10/08/2024 Onychomycosis (ICD-10 - B35.1) 01/11/2025 Other hammer toe(s) (acquired), right foot (ICD-10 - M20.41) Patient Educated with: DIABETIC FOOT CARE INSTRUCTIONS.p df (DIABETIC FOOT CARE INSTRUCTIONS.p df) 01/11/2025 Type 2 diabetes mellitus with diabetic peripheral angiopathy without gangrene (ICD-10 - E11.51) 01/11/2025 Onychomycosis (ICD-10 - B35.1) 07/02/2024 Pain of [...] of left foot (ICD-10 - M79.675) 01/11/2025 Pain of toe of right foot (ICD-10 - M79.674) 01/11/2025 Pain of toe of left foot (ICD-10 - M79.675) 04/20/2024 Other hammer toe(s) (acquired), right foot (ICD-10 - M20.41) Patient Educated with: DIABETIC FOOT CARE INSTRUCTIONS.p df (DIABETIC FOOT CARE INSTRUCTIONS.p df) 01/11/2025 Other hammer toe(s) (acquired), left foot (ICD-10 - M20.42) 04/20/2024 Other hammer toe(s) (acquired), left foot (ICD-10 - M20.42) 07/02/2024 Other 10/08/2024 Other Plan Of Treatment Pending Test Test Name Order Date X ray : Foot, left 3V 10/27/2018 X ray : Foot, right 3V 10/27/2018 36670-PYWGAAE NAIL, 6 OR MORE 10/08/2024 38126-AMITEXP NAIL, 6 OR MORE 01/11/2025 36584-SMYSJHY NAIL, 6 OR MORE 10/28/2023 64903-GGOARRU NAIL, 6 OR MORE 02/13/2024 55640-KHIYHNC NAIL, 6 OR MORE 04/20/2024 59301-YLDSDOP NAIL, 6 OR MORE 07/02/2024 42676-DIIHMAR NAIL, 6 OR MORE 11/17/2018 44657-CKBYBID NAIL, 6 OR MORE 01/19/2019 74488-EMNJMGV NAIL, 6 OR MORE 04/06/2019 59633-UXVNJOM NAIL, 6 OR MORE 08/10/2019 03548-YLQSWIY NAIL, 6 OR MORE 12/17/2019 99896-OSWRQQJ NAIL, 6 OR MORE 02/22/2020 68731-CDZKTDM NAIL, 6 OR MORE 04/25/2020 26719-ICIDQPL NAIL, 6 OR MORE 07/25/2020 77168-SLPBLVC NAIL, 6 OR MORE 09/29/2020 47274-CXJLBKY NAIL, 6 OR MORE 12/01/2020 09860-LJJINOL NAIL, 6 OR MORE 02/02/2021 68723-FXEVBTT NAIL, 6 OR MORE 05/08/2021 81677-TQLZXOI NAIL, 6 OR MORE 07/24/2021 84734-UJZLBQP NAIL, 6 OR MORE 09/28/2021 18389-KPENIHK NAIL, 6 OR MORE 12/11/2021 29820-RZXNRZB NAIL, 6 OR MORE 02/22/2022 69118-CDTAZXA NAIL, 6 OR MORE 04/26/2022 64793-FQTWBOC NAIL, 6 OR MORE 07/12/2022 32042-VQPBPUU NAIL, 6 OR MORE 09/27/2022 32502-SCYIRMG NAIL, 6 OR MORE 06/06/2015 07489-SOWITPJ NAIL, 6 OR MORE 09/19/2015 78563-DYDXYJO NAIL, 6 OR MORE 12/19/2015 19427-JTYKNRE NAIL, 6 OR MORE 03/22/2016 11179-YASMVCK NAIL, 6 OR MORE 07/02/2016 11929-JPGEYPE NAIL, 6 OR MORE 10/04/2016 21362-FWDXCYS NAIL, 6 OR MORE 01/14/2017 37118-VPQVMAS NAIL, 6 OR MORE 04/18/2017 08033-HAJDEYG NAIL, 6 OR MORE 07/18/2017 31230-OWZYGZV NAIL, 6 OR MORE 10/28/2017 20831-ETAYUEQ NAIL, 6 OR MORE 01/13/2018 87287-ROIZLKW NAIL, 6 OR MORE 03/24/2018 12640-VKEZEVZ NAIL, 6 OR MORE 05/29/2018 46140-ZKBZZWO NAIL, 6 OR MORE 08/11/2018 13256-EYSTNKY NAIL, 6 OR MORE 12/10/2022 73581-JKDGKEM NAIL, 6 OR MORE 02/21/2023 88813-UKPRDRK NAIL, 6 OR MORE 05/09/2023 69742-NDZMLNM NAIL, 6 OR MORE 07/22/2023 18017-HFDP SKIN LESIONS, 2 TO 4 07/22/20 33230-XAON SKIN LESIONS, 2 TO 4 05/09/20 56492-XIGM SKIN LESIONS, 2 TO 4 02/22/20 11232-WIFO SKIN LESIONS, 2 TO 4 12/10/19 42903-CZBP SKIN LESIONS, 2 TO 4 09/27/20 95056-DFQI SKIN LESIONS, 2 TO 4 07/02/20 07755-XGSP SKIN LESIONS, 2 TO 4 04/20/20 64710-VTDK SKIN LESIONS, 2 TO 4 02/13/20 24 25657-EBJY SKIN LESIONS, 2 TO 4 10/28/19 24 33004-PMMC SKIN LESIONS, 2 TO 4 01/12/20 62236-UUAV SKIN LESIONS, 2 TO 4 10/08/20 Next Appt Details Provider Name:Mckinley Alexander Naomi , 04/04/2025 02:30:00 PM, [address], [place], [address], Insurance Providers Payer Name Payer Address Payer Phone Subscriber Number Group Number Insured Name Patient Relationship to Insured Coverage Start Date Coverage End Date [employer] [address] [place] [address] [phone] [id number] Brannon Canela Self - patient is the insured Medical (General) History Medical History History ICD Code Cataracts Crohns disease Arthritis Cholesterol Hypertension Thyroid type II diabetes Surgical History Surgery Date(Month/Year) appendectomy 2009 eye surgery - eyelidectomy 2010 [place] cataract surgery 10/23/22,11/06/22
--- OUTSIDE RECORDS SUMMARY | 2025-02-08 17:25 | XMS_ITS | Encounter Summary ---
Author Name [facility] [place] [place] Organization [facility] [place] Address [address] [place] [address] Care Team Providers Care Painter Spray Name Role Phone DYLAN GRANDA Primary Care [...] [place] M[place] (WNR) MEDICARE ADVANTAGE MCR ([facility]) Aug 20, 2014 [id number] PATIENT [facility] ([facility]) MEDICARE ADVANTAGE MCR ([facility]) Aug 20, 2014 [id number] PATIENT [facility] ([facility]) MEDICARE ADVANTAGE MCR ([facility]) Aug 20, 2014 [id number] PATIENT Selected Encounter This section includes the information on record at [place] for the Encounter. Date/Time Encounter Type Encounter Description Reason Provider Source Aug 17, 2024 10:00 AM HEARING AID REPAIR/MODIFYING AUDIOLOGY ICD-10-CM Z46.1 Encounter for fitting and adjustment of hearing aid PATRICK CRISTINA [facility] Encounter Template Text not used by CT Assessments - Encounter Diagnoses This section includes the primary and secondary diagnoses documented for the Encounter. Date/Time Primary/Secondary Diagnosis Diagnosis Name Provider Source Aug 17, 2024 11:25 AM PRIMARY Encounter for fitting and adjustment of hearing aid JUDITH ZUÑIGA [facility] Aug 17, 2024 11:25 AM SECONDARY Sensorineural hearing loss, bilateral JUDITH ZUÑIGA MARY [facility] Advance Directives: All historical and current Section Date Range: From patient's date of to the date document was created. This section includes ALL of a patient's completed or amended CT Advance and Rescinded Directives. The entries below indicate that a directive exists for the patient, but an actual copy is not included with this document. The data comes from all [place] facilities. Date Advance Directives Provider Source Jul 09, 2010 ADVANCE DIRECTIVE HA REYNOSO [facility] Encounter Notes: All associated encounter notes This section contains the clinical notes associated to the Encounter. Date/Time Encounter Note(s) Provider Source Aug 17, 2024 07:31 AM AUDIOLOGY NOTE: LOCAL TITLE: AUDIOLOGY HEALTH JUNIOR AUTOMATION ENGINEER STANDARD TITLE: AUDIOLOGY NOTE DATE OF NOTE: AUG 17, 2024@07:31 ENTRY DATE: AUG 17, 2024@07:31:41 AUTHOR: SELENE ZUÑIGA EXP COSIGNER: PATRICK CRISTINA URGENCY: STATUS: COMPLETED August 17, 2024 History/Background: was seen for a hearing aid follow up, unaccompanied. The [place] presented today requesting maintenance on his hearing aids. The reported the hearing aids turn on/off occasionally after sitting on the couch or at the computer. Advised the this is likely auto on/off to save battery life or sleep mode . Hearing aids: [employer] ETHEL BTEs Serial Numbers: [id number] Battery size: 13 Date Issued: 01/01/2023 Hearing aid check: Both hearing aids were cleaned and checked. Replaced size 3 thin tubes and kale covers. Biologic check was good. Both hearing aids were connected to Ganji to disable the auto on/off function, per the Veterans request. However, this option was unavailable for the hearing aids. Both hearing aids will be sent to the theater set production designer for repair, intermittent , and will be mailed directly to the via [facility]. Additionally, the thin tubes and earmolds were given to the [place] per his request, so he can attach to the backup hearing aids he will be using in the meantime. Otoscopy: Clear canals. Plan: The will follow up as needed. /rodolfo/ SELENE ZUÑIGA [facility] [employer] Signed: 08/17/2024 11:37 /rodolfo/ PATRICK Ramesh CCC-A CHIEF, AUDIOLOGY/DRAFTER [employer]ERCIAL Cosigned: 08/17/2024 11:51 SELENE ZUÑIGA [facility]L [facility]
--- OUTSIDE RECORDS SUMMARY | 2025-02-08 17:25 | XMS_ITS ---
Author Organization [facility] Gaby resendiz [place] Address [address] [place] [address] Care Team Providers Care Cvor Nurse Name Role Phone Brannon Calvert Primary Care Provider Mckinley Sigala Unavailable [phone] Allergies Allergen (clinical drug ingredient) Drug/Non Drug [...] Ordered Date Performed Result Body Sit e 08885-NVOIIYQ NAIL, 6 OR MORE 07/02/2024 N/A 94163-TYOW SKIN LESIONS, 2 TO 4 07/02/2024 N/A Encounters Encounter Location Date Provider Diagnosis [facility] [place] [address] [place] [address] 07/02/2024 Mckinley Salgado Type 2 diabetes mellitus [...] Treatment Pending Test Test Name Order Date 31210-[id number] NAIL, 6 OR MORE 07/02/2024 86344-BQVB SKIN LESIONS, 2 TO 4 07/02/20 24 Next Appt Details Follow Up: prn, Reason: Provider Name:Mckinley Salgado , 04/04/2025 02:30:00 PM, [address], [address], [place], [address], Procedure Notes * Category Sub-Category Detail Notes Debride Nail 6-10 Nail debridement Performance o f this nail treatment by a nonprofessional would put this patients foot and overall health at risk. Therefore, nail debridement was performed extensively to reduce/remove overall nail length, girth, thickness, subungual debris, and necrotic tissue, by manual and/or electrical means through the use of a nail nipper and/or dremel-type glaze grinder, to a more viable healthy nail plate or bed tissue 6-10. Silver nitrate used for any petechial bleeding as necessary. Definitive antifungal treatment options have been reviewed and discussed with the patient. The patient chooses, no pharmaceutical tx - 39070 Keratoma Treatment Parring or Cutting o f Benign Hyperkeratotic Lesion(s) (-56) 2-4 Lesions - The Benign hyperkeratotic lesions, as described above were pared, and/or cut utilizing a sterile 15 blade, tissue nippers, and/or dremel - 72584 , Q8 Progress Notes * Brannon CANELADOB:1945 (78 yo M)Acc No.[id number]:07/02/2024 Progress Note Patient:?Brannon Canela Provider:?Mckinley Salgado DPM :1945???Age:78 Y???Sex:Male Robby e:07/02/2024 Address:[address] [place], [place] [id number] Pcp:Edward Ryter Subjective: * Chief Complaints: * [...] foot - M79.675? Plan: * Treatment: 2.?Onychomycosis?Procedure: 94557-XSLXJPW NAIL, 6 OR MORE * Procedures:?Debride Nail 6-10:?Nail debridement?Performance of this nail treatment by a nonprofessional would put this patients foot and overall health at risk. Therefore, nail debridement was performed extensively to reduce/remove overall nail length, girth, thickness, subungual debris, and necrotic tissue, by manual and/or electrical means through the use of a nail nipper and/or dremel-type glaze grinder, to a more viable healthy nail plate or bed tissue 6-10. Silver nitrate used for any petechial bleeding as necessary. Definitive antifungal treatment options have been reviewed and discussed with the patient. The patient chooses, no pharmaceutical tx - 02911.?Keratoma Treatment:?Parring or Cutting of Benign Hyperkeratotic Lesion(s)?(-56) 2-4 Lesions - The Benign hyperkeratotic lesions, as described above were pared, and/or cut utilizing a sterile 15 blade, tissue nippers, and/or dremel - 00084 , Q8.? * Procedure Codes:?14476 DEBRI DE NAIL, 6 OR MORE, Modifiers: XS 69092 TRIM SKIN LESIONS, 2 TO 4, Modifiers: [...]
--- OUTSIDE RECORDS SUMMARY | 2025-02-08 17:25 | XMS_ITS | Encounter Summary ---
Author Name [facility] [place] [facility] [place] Organization [facility] [place] Address [address] [place] [address] Care Team Providers Care Heat Treat Puller Name Role Phone DYLAN GRANDA Primary Care [...] [place] MEDICARE ADVANTAGE MCR ([facility]) Aug 20, 2014 [id number] PATIENT HEALTH [place] M[place] (WNR) MEDICARE ADVANTAGE MCR ([facility]) Aug 20, 2014 [id number] PATIENT [facility]) MEDICARE ADVANTAGE MCR ([facility]) Aug 20, 2014 [id number] PATIENT Selected Encounter This section includes the information on record at [place] for the Encounter. Date/Time Encounter Type Encounter Description Reason Provider Source Jul 22, 2024 11:00 AM SELF CARE MNGMENT TRAINING PHYSICAL THERAPY ICD-10-CM M25.569 Pain in unspecified knee FREDERICK LOMAS [facility] Encounter Template Text not used by [place] Assessments - Encounter Diagnoses This section includes the primary and secondary diagnoses documented for the Encounter. Date/Time Primary/Secondary Diagnosis Diagnosis Name Provider Source Jul 22, 2024 11:22 AM PRIMARY Pain in unspecified knee PHUC LOMAS Plan of Treatment: Future Appointments (+ 6 months) and Future Tests (+/- 45 days) The Plan of Treatment section includes future care activities for the [facility] from [facility] [place] [facility] This section includes future appointments and future orders which are active, pending or scheduled. Future Appointments This section includes appointments that were scheduled to occur 6 months from the date of the Encounter, up to a maximum of 20 appointments. The data comes from all [place] treatment facilities. Appointment Date/Time Appointment Type Appointme nt Facility Name Aug 17, 2024 10:00 AM AMBULATORY - REHAB MEDICIN E [facility] Active, Pending, and Scheduled Orders This section includes a listing of several types of active, pending, and scheduled orders, including clinic medications orders, diagnostic test orders, procedure orders and consult orders; where the start date of the order is 45 days before the date of the Encounter or 45 days after the date of theEncounter. The data comes from all [place] treatment [facility]. Test Date/Time Test Type Test Details Facility Name Jun 09, 2024 12:00 AM Laboratory - Chemi stry Order OCCULT BLOOD FIT X1 SCREEN(IN-HOUSE) STOOL FECES SP [facility] Social History: Smoking Status (Most current) and Tobacco Use (All prior to encounter date) This section includes the most current, and the historical, smoking and tobacco- related health factors from the [place] facility where the Encounter took place. Current Smoking Status This section includes the most current smoking, or tobacco-related health factor, from the [place] facility where the Encounter took place. Date/Time Current Smoking Status Comment Desiree ity Jun 09, 2024 09:00 [facility] Tobacco Use History This section includes a history of the smoking, or tobacco-related health factors, that were collected on or before the date of the Encounter. The data comes from the [place] facility where the Encounter took place. Date/Time Smoking Status/Tobacco Use Comment F acility Jun 09, 2024 09:00 AM VA-TOBACCO QUIT 15 YRS OR MORE [facility] Jun 10, 2023 09:00 AM VA-TOBACCO FORMER USER [facility] Jun 10, 2023 09:00 AM VA-TOBACCO QUIT 15 YRS OR MORE [facility] Jun 10, 2022 10:00 AM VA-TOBACCO FORMER USER [facility] Jun 10, 2022 10:00 AM VA-TOBACCO QUIT 15 YRS OR MORE [facility] Jun 14, 2020 09:00 AM VA-TOBACCO FORMER USER [facility] Jun 14, 2020 09:00 AM VA-TOBACCO QUIT 15 YRS OR MORE [facility] Dec 25, 2018 12:05 PM VA-TOBACCO FORMER USER [facility] Dec 25, 2018 12:05 PM VA-TOBACCO QUIT 15 YRS OR MORE [facility] Apr 28, 2018 09:05 AM QUIT TOBACCO USE > 7 YEARS AGO [facility] Dec 11, 2015 03:14 PM QUIT TOBACCO USE > 7 YEARS AGO [facility] May 01, 2010 01:18 PM QUIT TOBACCO USE > 7 YEARS AGO stopped tobacco 1998 [facility] Advance Directives: All historical and current Section Date Range: From patient's date of to the date document was created. This section includes ALL of a patient's completed or amended [place] Advance and Rescinded Directives. The entries below indicate that a directive exists for the patient, but an actual copy is not included with this document. The data comes from all [place] facilities. Date Advance Directives Provider Source Jul 09, 2010 ADVANCE DIRECTIVE HA REYNOSO [facility] Encounter Notes: All associated encounter notes [...] identified by full name and date of came in on this date stating that [...] appropriate knee brace. /rodolfo/ KATHERINE RAGLAND LICENSE FELT CUTTER Signed: 07/22/2024 11:22 PHUC LOMAS
--- OUTSIDE RECORDS SUMMARY | 2025-02-08 17:25 | XMS_ITS | Continuity of Care Document ---
Author Name [facility] Organization [facility] Care Team Providers Care Childcare Provider Name Role Phone [facility] Unavailable Unavailable Problems Combined list of problems from Department of Defense and Veterans Affairs facilities. It does not include entries that were removed or entered in error. Problem Status Onset Date Problem Type Date of Resolution Comments Source Sleep apnea Active 006 Condition [place] Ulcerative colitis Active 003 Condition May 01, 2010 Entered By: MICHELLE CARRILLO RA Comment: Colonoscopies X 4: Ulcerative Colitis: 2009: Polyp X 1Jan 2010 Entered By: MICHELLE CARRILLO RA Comment: Fazal BARRIOS: [facility]: Stated he does not have UCAug 2016 Entered By: PRIYANK TALBERT Comment: Nov 2016-repeat colonoscopy- 3 benign polyps and no active UC-due again in 2019Jul 2018 Entered By: MIHIR FORTUNE Comment: GI- [place] Bilateral Cataracts Active Condition [facility] Chronic neck pain Active Condition Au 2017 Entered By: PRIYANK TALBERT Comment: treated by capsaicin cream [facility] Essential hypertension (SNOMED CT 36997651) Active Condition [place] Gout Active Condition Oct 21 Entered By: PRIYANK TALBERT Comment: Diagnosed by Dr. 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 Appiah [facility] Physiatry, Also referred to [facility] Dr. Treadwell 2015 Entered By: LUIS MIGUEL OCHOA Comment: MRI [facility] 08/2015 L3-L4 severe central spinal stenosis [facility] Microscopic hematuria Active Condition Jul 02, 2010 Entered By: MICHELLE CARRILLO RA Comment: Vanessa David MD: Urologist: YearlyYen 2016 Entered By: PRIYANK TALBERT Comment: Recent CT ABD/PELVIS with and without contrast did not show any kidney stones-January 2017 [place] Obesity * (ICD-9-CM 278.00) Active Condition [place] Opthalmology Active Condition May 10, 2020 Entered By: MIHIR FORTUNE Comment: Dr. Ritesh Purvis 2019 Entered By: QUENTIN CORONA Comment: Last Eye Exam 05/01/2020 [place] Osteoarthritis of knee Active Condition Jun 01, 2018 Entered By: PRIYANK TALBERT Comment: NEOS [facility] Outside PCP Active Condition May 10, 2020 Entered By: MIHIR FORTUNE Comment: Dr. Constantin Andrea [facility] Pure hypercholesterolemia * (ICD-9-CM 272.0) Active Condition [facility] Type 2 diabetes mellitus Active Condition May 12, 2019 Entered By: MIHIR FORTUNE Comment: PCP-Dr.Nathan Andrea [facility] Ulcerative colitis Active Condition [facility] -2008: Appendectomy Inactive Condition 12/25/2018 [place] Diabetes Mellitus Type II or unspecified * (ICD-9-CM 250.00) Inactive Condition 04/03/2015 [facility] [place] Diagnosis: ICD-10-CM G47.30 Sleep apnea, unspecified Active Diagnosis [facility] Diagnosis: ICD-10-CM Z46.1 Encounter for fitting and adjustment of hearing aid Active Diagnosis [facility] Diagnosis: ICD-10-CM M25.569 Pain in unspecified knee Active Diagnosis [facility] Diagnosis: ICD-10-CM Z00.01 Encounter for general adult medical exam w abnormal findings Active Diagnosis [place] Medications Combined list of outpatient medications from Department of Defense and Veterans Affairs facilities.Medications provided include 1) outpatient medications from the last 15 months, and 2) patient-reported medications. Medication Details Route Status Patient Instructions Prescription Expires Prescription Number Last Dispense Date Ordering Provider Order Date Order Qty Source ALLOPURINOL 300MG TAB TAKE ONE TABLET BY MOUTH ONCE DAILY FOR GOUT ORAL 05/01/2024 [id number] DOUGLAS APOLINARI O 2022 90 [place] ASCORBIC ACID 500MG TAB TAKE TWO TABLETS BY MOUTH TWICE DAILY ORAL ACTIVE Tanvi TALBERT 2014 [place] ASPIRIN 81MG TAB,EC TAKE ONE TABLET BY MOUTH DAILY ORAL ACTIVE ZECHARIAH JENSEN 2009 [facility] CALCIUM CARBONATE TAB TAKE 333MG BY MOUTH ONCE DAILY ORAL ACTIVE ALEXANDRIA COLE O 2021 [facility] CHOLECALCIF SYDNIE 25MCG (1,000UNIT) TAB TAKE ONE TABLET BY MOUTH DAILY ORAL ACTIVE ZECHARIAH JENSEN 2009 [facility] [place] DORZOLAMIDE HCL 22.3MG/MAR[place] LOL MALEATE 6.8MG/ML SOLN,OPH INSTILL 1 DROP INTO EACH EYE TWICE DAILY TO REDUCE PRESSURE IN THE EYE OPHTHA LMIC 04/25/2024 [id number] LACKEY,LAC EY J 2022 20 [facility] LATANOPROST 0.005% SOLN,OPH INSTILL 1 DROP INTO EACH EYE AT BEDTIME FOR INCREASE D PRESSURE IN THE EYE OPHTHA LMIC 04/25/2024 [id number] LACKEY,LAC EY J 2022 10 [facility] LEVOTHYROXI NE NA 50MCG TAB (SYNTHROID) TAKE ONE TABLET BY MOUTH EVERY MORNING 30 MINUTES BEFORE BREAKFAS T FOR THYROID - TAKE ON AN EMPTY STOMACH WITH A FULL GLASS OF WATER EXCEPT TAKE 2 PILLS EVERY AND FRIDAY ORAL 06/10/2024 [id number] DOUGLAS, APOLINARI O 2022 108 [place] LISINOPRIL 30MG TAB TAKE ONE TABLET BY MOUTH ONCE DAILY TO CONTROL BLOOD PRESSURE CELIA KNAPP MD ORAL ACTIVE 04/22/2025 [id number] 4 DOUGLAS, APOLINARI O 2023 90 [place] LISINOPRIL 30MG TAB TAKE ONE TABLET BY MOUTH ONCE DAILY TO CONTROL BLOOD PRESSURE CELIA KNAPP MD ORAL DISCONT INUED 02/05/2024 [id number] DOUGLAS, APOLINARI O 2022 90 [place] MAGNESIUM OXIDE TAB TAKE 133MG BY MOUTH ONCE DAILY ORAL ACTIVE DOUGLAS, APOLINARI O 2021 [facility] MESALAMINE 500MG CAP,SA TAKE TWO CAPSULES BY MOUTH TWICE DAILY ORAL ACTIVE 08/13/2025 [id number] DOUGLAS, APOLINARI O 2023 360 [place] MESALAMINE 500MG CAP,SA TAKE TWO CAPSULES BY MOUTH TWICE DAILY ORAL DISCONT INUED 06/10/2024 [id number] 4 DOUGLAS, APOLINARI O 2022 360 [place] TAMSULOSIN HCL 0.4MG CAP TAKE ONE CAPSULE BY MOUTH ONCE DAILY FOR ENLARGED PROSTATE TAKE HALF AN HOUR AFTER LAST MEAL OF THE DAY. ORAL 11/12/2024 [id number] DOUGLAS, APOLINARI O 2023 90 [place] ZINC 50MG (FROM SULFATE) CAP TAKE 1 CAPSULE BY MOUTH ONCE DAILY ORAL ACTIVE DOUGLAS, APOLINARI O 2021 [facility] Immunizations Combined list of available immunizations from the Department of Defense and Veterans Affairs facilities. Immunization Series Date Given Administered By Site Reaction Lot Number CVX Code Drug Lab Nurse Status Comments Source COVID-19 (MODERNA), MRNA, LNP-S, PF, 50 MCG/0.5 ML (AGES 12+ YEARS) 2022 312 complet ed HISTORICA L INFORMATI ON - SOURCE UNSPECIFI ED, [facility] INFLUENZA, UNSPECIFIED FORMULATION 2022 88 complet ed HISTORICA L INFORMATI ON - FROM OTHER REGISTRY, [facility] COVID-19 (PFIZER), MRNA, LNP-S, BIVALENT BOOSTER, PF, 30 MCG/0.3 ML DOSE 1 2021 300 complet ed [facility] INFLUENZA VACCINE, QUADRIVALENT, ADJUVANTED 2021 205 complet ed [facility] COVID-19 (MODERNA), MRNA, LNP-S, PF, 100 MCG/0.5ML DOSE OR 50 MCG/0.25ML DOSE 3 2020 207 complet ed [facility] INFLUENZA VACCINE, QUADRIVALENT, ADJUVANTED 2020 205 complet ed [place] INFLUENZA, UNSPECIFIED FORMULATION 2020 88 complet ed [facility] COVID-19 (MODERNA), MRNA, LNP-S, PF, 100 MCG/0.5ML DOSE OR 50 MCG/0.25ML DOSE 2 2020 207 complet ed [facility] COVID-19 (MODERNA), MRNA, LNP-S, PF, 100 MCG/0.5ML DOSE OR 50 MCG/0.25ML DOSE 1 2020 207 complet ed [facility] INFLUENZA, INJECTABLE, QUADRIVALENT, PRESERVATIVE FREE 2018 150 [...] [facility] TDAP 2012 115 complet ed [facility]. See record. [facility] [...] 06/09/20 24 09:15:49 [facility] DIASTOLIC BLOOD PRESSURE 75 024 09:15:49 [facility] [...] included; 2) Encounters from the Department of [facility] facilities going backup to 280 months. Location Location Details Encounter Type Encounter Number Reason For Visit Attending Provider ADM Date DC Date Status Disposition Source [facility] Outpatient Encounter [id number] 08/19 [facility] Out[facility] Encounter [id number] 09/25 [facility] Out[facility] Encounter [id number] 11/07 [facility] Out[facility] Encounter [id number] 11/07 [facility] Out[facility]counter [id number] 11/11 [facility]counter [id number] 11/13 [facility] Out[facility] Encounter [id number] 12/28 [facility] COLLJ & INTERPJ DATA EA 30 D [id number] Diagnos is: ICD-10- CM G47.30 Sleep apnea, unspeci fied RETA ESTRADA A 02/16 [facility] En[facility] [id number] 03/25 [facility] Encounter [id number] 03/29 [facility] Out[facility] Encounter [id number] 04/05 [facility] Out[facility]counter [id number] 04/05 [facility] Out[facility] Encounter [id number] 04/19 [facility] Out[facility] Encounter [id number] 04/20 [facility] Out[facility] Encounter [id number] 04/21 [facility] Encounter [id number] 04/26 [facility] Out[facility] Encounter [id number] 04/30 [facility] Out[facility] Encounter [id number] 05/11 [facility] Out[facility] Encounter [id number] 05/26 [facility] Out[facility]counter [id number] 1.06/04 [facility] Out[facility] Encounter [id number] 1.06/05 [facility] Out[facility]counter [id number]/07 [facility] Outpatient Encounter [id number] 06/09 [facility] O/P EST MOD 30 MIN [id number] Diagnos is: ICD-10- CM Z00.01 Encount er for general adult medical exam w abnorma l finding s Mendez COLE 06/09 [facility] Outpatient Encounter [id number] [facility] Out[facility] Encounter [id number] 1.06/16 [facility] ORTHC/PROS TC MGMT SBSQ ENC [id number] Diagnos is: ICD-10- CM M25.569 Pain in unspeci fied knee Jose LOMAS 06/17 [place] [facility] Outpatient [facility]counter [id number] 06/24 [facility] Out[facility] Encounter [id number] 07/09 [facility] Out[facility] Encounter [id number] 07/16 [facility] [place] [facility]F [facility] MNGMENT TRAINING [id number] Diagnos is: ICD-10- CM M25.569 Pain in unspeci fied knee Jose LOMAS 07/22 [place] [facility] Out[facility] En[facility] [id number] 08/06 [facility] Out[facility] Encounter [id number] 08/06 [facility] Out[facility] Encounter [id number] 08/10 [facility] Out[facility] Encounter [id number] 08/17 [facility] HEARING AID REPAIR/MOD IFYING [id number] Diagnos is: ICD-10- CM Z46.1 Encount er for fitting and adjustm ent of hearing aid ZULEMA CRISTINA 08/17 [facility] Out[facility] Encounter [id number] 12/17 [facility] Out[facility] Encounter [id number] 12/20 [facility] SPECIAL SUPPLIES PHYS/QHP [id number] Diagnos is: ICD-10- CM G47.30 Sleep apnea, unspeci fied YAZAN CANALES 12/28 [facility] [place] Social History Combined list of available smoking, tobacco, and other social history from Department of Defense and Veterans Affairs facilities. Social History Type Response Date Comment Sourc e Tobacco smoking status [place] [facility]CO FORMER USER 06/09/2024 [place] History of tobacco use [facility]-TOBACCO QUIT 15 YRS OR MORE 06/09/2024 [place] History of tobacco use VA-TOBACCO FORMER USER 06/10/2023 [place] History of tobacco use [place]-TOBACCO QUIT 15 YRS OR MORE 06/10/2022 [place] History of tobacco use [place]-TOBACCO QUIT 15 YRS OR MORE 06/14/2020 [place] History of tobacco use VA-TOBACCO QUIT 15 YRS OR MORE 12/25/2018 [place] History of tobacco use QUIT TOBACCO USE > 7 YEARS AGO 04/28/2018 [place] History of tobacco use QUIT TOBACCO USE > 7 YEARS AGO 12/11/2015 [place] History of tobacco use QUIT TOBACCO USE > 7 YEARS AGO 05/01/2010 stopped tobacco 1998 [place] Plan of Care List of future care activities from [facility] facilities. Additional future care activities may be listed in the Assessment and Plan section. Date/Time Care Activity Care Activity Detail Facili ty 06/08/2025 AMBULATORY - MEDICINE [facility] Advance Directives List of completed, amended, or rescinded Advance Directives on record at Department of Veterans Affairs facilities. An actual copy of the Directive is not included. Date Advance Directive Provider Source 07/09/2010 ADVANCE DIRECTIVE HA REYNOSO [facility]
== END 2025-02-08 15:09 | disposition home or self-care (01) ==
LOC: HO.RHES 14:34
PROVIDERS: PCP Internal Medicine; Visit Provider Internal Medicine Rheumatology
DX: M17.0 Bilateral primary osteoarthritis of knee (principal); M47.816 Spondylosis without myelopathy or radiculopathy, lumbar region
CPT/HCPCS: 20610; 99213

== ENCOUNTER → 2025-02-08 14:34 | Outpatient (BNVA) | payer OTHER, SELFPAY | PROVIDERS: PCP Internal Medicine; Visit Provider Internal Medicine Rheumatology | DX: M17.0 Bilateral primary osteoarthritis of knee (principal); M47.816 Spondylosis without myelopathy or radiculopathy, lumbar region | CPT/HCPCS: 20610; J7323 ==

== ENCOUNTER 2025-02-15 14:25 | Outpatient (AMB) | payer OTHER, SELFPAY ==
--- NOTE | 2025-02-15 14:28 | A.OFFVIS_ITS ---
Vital Signs 02/15/25 14:54 Height 5 ft 9 in Weight 256 lb BMI 37.8 BP 120/64 Blood Pressure Location Lt brachial Position Sitting Pulse 59 Pulse Source Pulse Oximeter Pulse Oximetry (%) 98 Oxygen Delivery Method Room Air Intake Visit Reasons: Euflexxa Intake Note: Patient presents follow up on arthritis today. Also for euflexxa injection. Allergies NSAIDS (Non-Steroidal Anti-Inflamma Adverse Reaction (Unknown, Verified 02/15/25 14:29) rectal bleeding Physical Exam Vital Signs: Last Vital Signs Pulse 59 02/15/25 14:54 BP 120/64 02/15/25 14:54 Pulse Ox 98 02/15/25 14:54 Oxygen Delivery Method Room Air 02/15/25 14:54 BMI result Body Mass Index 37.8 Const Other: General: Comfortable Skin: No lesions seen MSK: Tender to palpate right joint line. Mild effusion present with warmth. Limited knee flexion. Office Procedures AMB Joint Injection/Aspiration Joint Injection/Aspiration Details: Right knee Prep: site was prepped using aseptic technique Injected: Euflexxa 20 mg was injected into right knee using 25 gauge 1-1/2 inch needle Procedure: The patient tolerated the procedure well. Postprocedure protocol was discussed with patient. Coding 99604 - Large joint Procedure code (CPT) selection complete Office Meds Euflexxa 10 mg/mL (mw 2.4-3.6 million) intra-articular syringe Performing Provider: Ashu Collier MD Performing Location: [facility] Administered by: Ashu Collier MD on 02/15/25 15:55 Dose Route Admin Location Dispensed Lot Number Expiration Date [facility] Contracts Director 20 mg intra-articular 2 mL [id number] [facility] Assessment & Plan Assessment & Plan (1) Osteoarthritis of knees, bilateral: Comment: On Euflexxa. History: He received bilateral knee cortisone injections 09/2024 effective, right knee December 2024 ineffective. Right knee Euflexxa 01/2025. Low-dose gabapentin up titrated to 200 mg in the morning and 100 mg at night prescribed by PCP ineffective. Contraindication to oral NSAIDs due to history of IBD. Code(s): M17.0 - Bilateral primary osteoarthritis of knee Category: Medical Qualifiers: Osteoarthritis type: primary Qualified Code(s): M17.0 - Bilateral primary osteoarthritis of knee Plan: Patient received right knee Euflexxa injection this visit #2 RTC 1 week (2) Osteoarthritis of right knee: Comment: Failed cortisone injection. Euflexxa has been approved. Code(s): M17.11 - Unilateral primary osteoarthritis, right knee Category: Medical Qualifiers: Osteoarthritis type: primary Qualified Code(s): M17.11 - Unilateral primary osteoarthritis, right knee Plan: Patient received Euflexxa injection #2 to right knee (3) Lumbar spondylosis: Comment: Uncontrolled knee pain exacerbates back pain. Failed Tylenol, PT for back strengthening, L-spine cortisone injections and radiofrequency ablation treated by pain management. He did not have benefit on low-dose gabapentin. Contraindication to oral NSAIDs due to history of IBD. Code(s): M47.816 - Spondylosis without myelopathy or radiculopathy, lumbar region Category: Medical Plan: Management of knee pain secondary from osteoarthritis as above. Orders: Orders AMB Joint Injection/Aspiration Today M17.0 - Bilateral primary osteoarthritis of knee Coding Level of Care Code Est Pt Level 3 (76347) Complex EM visit Add On G2211 Diagnoses Primary osteoarthritis of both knees M17.0 Osteoarthritis type: primary Primary osteoarthritis of right knee M17.11 Osteoarthritis type: primary Lumbar spondylosis M47.816 CPT Codes Coding - 09151 Large joint: 65943 - Large joint ([id number])
[2025-02-15 14:54] VITALS: BP 120/64; PULSE 59; O2SAT 98; BMI 37.8
--- OUTSIDE RECORDS SUMMARY | 2025-02-15 16:38 | XMS_ITS | Patient Health Record ---
Author Organization [facility] Gaby [place] Address [address] [facility] [place] [address] Care Team Providers Care Office Employee Name Role Phone Brannon Calvert Primary Care Provider Mckinley Sigala Unavailable [phone] Allergies Allergen (clinical drug ingredient) Drug/Non Drug [...] Problem Acquired hammer toe of right foot (9581151184553 105) Other hammer toe(s) (acquired), right foot (M20.41) Active confirmed Unchanged Problem Type 2 diabetes mellitus with peripheral angiopathy (006196643) Type 2 diabetes mellitus with diabetic peripheral angiopathy without gangrene (E11.51) Active confirmed Problem Acquired hammer toe of left foot (9247264914755 103) Other hammer toe(s) (acquired), left foot (M20.42) Active confirmed Unchanged Vital Signs Blood pressure diastolic 75 mm Hg 01/11/2025 Height 5 ft 9 in in 01/11/2025 Blood pressure systolic 120 mm Hg 01/11/2025 Weight 240 lbs 01/11/2025 BMI 35.44 kg/m2 01/11/2025 Procedures Procedure Date Ordered Date Performed Result Body Sit e 96424-PJIZOLQ NAIL, 6 OR MORE 04/20/2024 N/A 06680-ELHM SKIN LESIONS, 2 TO 4 04/20/2024 N/A 41359-JJGKQJQ NAIL, 6 OR MORE 07/02/2024 N/A 40179-ZBOH SKIN LESIONS, 2 TO 4 07/02/2024 N/A 66783-WESGIHY NAIL, 6 OR MORE 10/08/2024 N/A 32218-NMVL SKIN LESIONS, 2 TO 4 10/08/2024 N/A 99337-DPXUVZA NAIL, 6 OR MORE 01/11/2025 N/A 82916-LJCK SKIN LESIONS, 2 TO 4 01/11/2025 N/A Encounters Encounter Location Date Provider Diagnosis [address] [address] 04/20/2024 Mckinley Salgado Type 2 diabetes mellitus with diabetic peripheral angiopathy without gangrene E11.51 ; Onychomycosis B35.1 ; Pain of toe of right foot M79.674 ; Pain of toe of left foot M79.675 ; Other hammer toe(s) (acquired), right foot M20.41 and Other hammer toe(s) (acquired), left foot M20.[address] [address] 07/02/2024 Mckinley Salgado Type 2 diabetes mellitus with diabetic peripheral angiopathy without gangrene E11.51 ; Onychomycosis B35.1 ; Pain of toe of right foot M79.674 and Pain of toe of left foot M79.[address] [address] 10/08/2024 Mckinley Salgado Type 2 diabetes mellitus with diabetic peripheral angiopathy without gangrene E11.51 ; Onychomycosis B35.1 ; Pain of toe of right foot M79.674 and Pain of toe of left foot M79.[address] [address] 01/11/2025 Mckinley Salgado Type 2 diabetes mellitus with diabetic peripheral angiopathy without gangrene E11.51 ; Other hammer toe(s) (acquired), right foot M20.41 ; Onychomycosis B35.1 ; Pain of toe of right foot M79.674 ; Pain of toe of left foot M79.675 and Other hammer toe(s) (acquired), left foot M20.42 [facility] [address] [address] 06/22/2024 Mckinley Turciosier Assessments Encounter Date Diagnosis (ICD Code) Assessment Notes Treatment Notes Treatment Clinical Notes Section Notes 04/20/2024 Type 2 diabetes mellitus with diabetic [...] - M79.674) 04/20/2024 Pain of toe of left foot [...] X ray : Foot, right 3V 10/27/2018 41124-JLBDAIN NAIL, 6 OR MORE 10/08/2024 89816-HICRZBW NAIL, 6 OR MORE 01/11/2025 35292-TBRSREB NAIL, 6 OR MORE 10/28/2023 89661-HFTMOVK NAIL, 6 OR MORE 02/13/2024 57959-TCLHAWH NAIL, 6 OR MORE 04/20/2024 62087-LDPOZOU NAIL, 6 OR MORE 07/02/2024 19935-DGGIOIS NAIL, 6 OR MORE 11/17/2018 55184-ATWLYST NAIL, 6 OR MORE 01/19/2019 93640-HOJPREF NAIL, 6 OR MORE 04/06/2019 15719-UFJKYCC NAIL, 6 OR MORE 08/10/2019 16208-PKVVZJQ NAIL, 6 OR MORE 12/17/2019 01942-REDCYNC NAIL, 6 OR MORE 02/22/2020 61478-FALDYXQ NAIL, 6 OR MORE 04/25/2020 34712-LRVIIWU NAIL, 6 OR MORE 07/25/2020 46313-WUAIJWI NAIL, 6 OR MORE 09/29/2020 82383-YEYMYLT NAIL, 6 OR MORE 12/01/2020 22408-ZDJZYUA NAIL, 6 OR MORE 02/02/2021 14896-GEVKQNJ NAIL, 6 OR MORE 05/08/2021 19574-SUEOPWN NAIL, 6 OR MORE 07/24/2021 07303-RELCOUY NAIL, 6 OR MORE 09/28/2021 82576-LDRGUEA NAIL, 6 OR MORE 12/11/2021 75942-QBSBILQ NAIL, 6 OR MORE 02/22/2022 48163-ICUPAKO NAIL, 6 OR MORE 04/26/2022 21672-QKXFXUJ NAIL, 6 OR MORE 07/12/2022 22200-SEDJTQA NAIL, 6 OR MORE 09/27/2022 74102-VJRMZIB NAIL, 6 OR MORE 06/06/2015 05597-SBKGKFI NAIL, 6 OR MORE 09/19/2015 75192-HDTYABX NAIL, 6 OR MORE 12/19/2015 84434-BIRDYBL NAIL, 6 OR MORE 03/22/2016 97768-COBMRKY NAIL, 6 OR MORE 07/02/2016 45721-AUANAFO NAIL, 6 OR MORE 10/04/2016 20751-YBXVGOJ NAIL, 6 OR MORE 01/14/2017 14671-AVKUPAQ NAIL, 6 OR MORE 04/18/2017 38910-HNMJQED NAIL, 6 OR MORE 07/18/2017 20593-KWEATNY NAIL, 6 OR MORE 10/28/2017 27220-BHRZVPA NAIL, 6 OR MORE 01/13/2018 74267-VNLIIKA NAIL, 6 OR MORE 03/24/2018 84846-MNRYAZY NAIL, 6 OR MORE 05/29/2018 37623-UFPWKQP NAIL, 6 OR MORE 08/11/2018 10687-OWLRKJB NAIL, 6 OR MORE 12/10/2022 76229-ELHUBKI NAIL, 6 OR MORE 02/21/2023 76243-TLOAMJO NAIL, 6 OR MORE 05/09/2023 41973-JFBFRXO NAIL, 6 OR MORE 07/22/2023 77235-IQYT SKIN LESIONS, 2 TO 4 07/22/20 26677-JPZQ SKIN LESIONS, 2 TO 4 05/09/20 19319-ZXIZ SKIN LESIONS, 2 TO 4 02/22/20 16276-UOFU SKIN LESIONS, 2 TO 4 12/10/19 08608-VJMN SKIN LESIONS, 2 TO 4 09/27/20 89511-OHCR SKIN LESIONS, 2 TO 4 07/02/20 24 86683-YKJZ SKIN LESIONS, 2 TO 4 04/20/20 24 70340-QAZA SKIN LESIONS, 2 TO 4 02/13/20 24 42164-GWJR SKIN LESIONS, 2 TO 4 10/28/19 24 79244-YERF SKIN LESIONS, 2 TO 4 01/12/20 25 11136-BCKE SKIN LESIONS, 2 TO 4 10/08/20 Next Appt Details Provider Name:Mckinley Salgado , 04/04/2025 02:30:00 PM, [address] [facility] [address], [place], [address], Insurance Providers Payer Name Payer Address Payer Phone Subscriber Number Group Number Insured Name Patient Relationship to Insured Coverage Start Date Coverage End Date [employer] [address] [place] [address] [id number] Brannon Canela Self - patient is the insured 4 Medical (General) History Medical History History ICD Code Cataracts Crohns disease Arthritis Cholesterol Hypertension Thyroid type II diabetes Surgical History Surgery Date(Month/Year) appendectomy 2010 eye surgery - eyelidectomy 2011 Og cataract surgery 10/23/22,11/06/22
--- OUTSIDE RECORDS SUMMARY | 2025-02-15 16:38 | XMS_ITS ---
Author Organization [facility] Gaby resendiz [place] Address [address] [facility] [place] [address] Care Team Providers Care Luster Repairer Name Role Phone Brannon Calvert Primary Care Provider Mckinley Sigala Unavailable [phone] Allergies Allergen (clinical drug ingredient) Drug/Non Drug [...] Ordered Date Performed Result Body Sit e 44150-MWRFAGN NAIL, 6 OR MORE 10/08/2024 N/A 76547-GGRV SKIN LESIONS, 2 TO 4 10/08/2024 N/A Encounters Encounter Location Date Provider Diagnosis [facility] [address] [address] 10/08/2024 Mckinley Salgado Type 2 diabetes mellitus [...] Treatment Pending Test Test Name Order Date 67394-ETRTOEF NAIL, 6 OR MORE 10/08/2024 42163-VGYB SKIN LESIONS, 2 TO 4 10/08/20 24 Next Appt Details Follow Up: prn, Reason: Provider Name:Mckinley Salgado , 04/04/2025 02:30:00 PM, [address], [place], [address], Procedure Notes * Category Sub-Category Detail Notes [...] use of a nail nipper and/or dremel-type flute grinder, to a more viable healthy nail [...] to maintain effectiveness in symptomatic relief - 25492 Keratoma Treatment Parring or Cutting o f [...] instrumentation by the physician of record - 43741, Q8 Progress Notes * Brannon CANELADOB:1945 (78 yo M)Acc No.[id number]:10/08/2024 Progress Note Patient:?Brannon CANELA Provider:?Mckinley Salgado DPM :1945???Age:78 Y???Sex:Male Robby e:10/08/2024 Address: [place], [place]-[address] Pcp:Brannon Calvert Subjective: * Chief Complaints: [...] foot - M79.675??? Plan: * Treatment: 2.?Onychomycosis?Procedure: 73425-AYUBDLJ NAIL, 6 OR MORE * Procedures:?Debride Nail [...] use of a nail nipper and/or dremel-type flute grinder, to a more viable healthy nail [...] to maintain effectiveness in symptomatic relief - 00926.?Keratoma Treatment:?Parring or Cutting of Benign Hyperkeratotic Lesion(s)?(-56) [...] instrumentation by the physician of record - 09294, Q8.? * Procedure Codes:?61794 DEBRI DE NAIL, 6 OR MORE, Modifiers: XS 25414 TRIM SKIN LESIONS, 2 TO 4, Modifiers: XS , Q8 * Follow Up:?prn * Images: * Sign off status: Completed true * Provider:?Mckinley Salgado DPM Date:?2023 Generated for Amna arias/Linda/Harvey on:?02/15/2025 04:38 PM EDT History and Physical Notes * [...]
--- OUTSIDE RECORDS SUMMARY | 2025-02-15 16:38 | XMS_ITS | Continuity of Care Document ---
Author Name [facility] Organization [facility] Care Team Providers Care Almond Sorter Name Role Phone [facility] Unavailable Unavailable Problems Combined list of problems from Department of Defense and Veterans Affairs facilities. It does not include entries that were removed or entered in error. Problem Status Onset Date Problem Type Date of Resolution Comments Source Sleep apnea Active 006 Condition [facility] Ulcerative colitis Active 003 Condition May 01, [...] 2018 Entered By: MIHIR FORTUNE Comment: GI- [facility] Bilateral Cataracts Active Condition [facility] Chronic neck pain Active Condition Au 2017 Entered By: PRIYANK TALBERT Comment: treated by capsaicin cream [facility] Essential hypertension (SNOMED CT 78377003) Active Condition [place] Gout Active Condition Oct 21 Entered By: PRIYANK TALBERT Comment: Diagnosed by Dr. 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 Appiah [facility], Also referred to [facility] Dr. Treadwell 2015 Entered By: LUIS MIGUEL OCHOA Comment: MRI [facility] 08/2015 L3-L4 severe central spinal stenosis [facility] Microscopic hematuria Active Condition Jul 02, 2010 Entered By: MICHELLE CARRILLO RA Comment: Vanessa David MD: Urologist: YearlyYen 2016 Entered By: PRIYANK TALBERT Comment: Recent CT ABD/PELVIS with and without contrast did not show any kidney stones-January 2017 [facility] Obesity * (ICD-9-CM 278.00) Active Condition [facility] Opthalmology Active Condition May 10, 2020 Entered By: MIHIR FORTUNE Comment: Dr. Ritesh Purvis 2019 Entered By: QUENTIN CORONA Comment: Last Eye Exam 05/01/2020 [facility] Osteoarthritis of knee Active Condition Jun 01, 2018 Entered By: PRIYANK TALBERT Comment: NEOS [facility] Outside PCP Active Condition May 10, 2020 Entered By: MIHIR FORTUNE Comment: Dr. Constantin Andrea [facility] Pure hypercholesterolemia * (ICD-9-CM 272.0) Active Condition [facility] Type 2 diabetes mellitus Active Condition May 12, 2019 Entered By: MIHIR FORTUNE Comment: PCP-Dr.Nathan Andrea [facility] Ulcerative colitis Active Condition [facility] -2008: Appendectomy Inactive Condition 12/25/2018 [facility] Diabetes Mellitus Type II or unspecified * (ICD-9-CM 250.00) Inactive Condition 04/03/2015 [facility] Diagnosis: ICD-10-CM G47.30 Sleep apnea, unspecified Active Diagnosis [facility] Diagnosis: ICD-10-CM Z46.1 Encounter for fitting and adjustment of hearing aid Active Diagnosis [facility] Diagnosis: ICD-10-CM M25.569 Pain in unspecified knee Active Diagnosis [facility] Diagnosis: ICD-10-CM Z00.01 Encounter for general adult medical exam w abnormal findings Active Diagnosis [facility] Medications Combined list of outpatient medications from Department of Defense and Veterans Affairs facilities.Medications provided include 1) outpatient medications from the last 15 months, and 2) patient-reported medications. Medication Details Route Status Patient Instructions Prescription Expires Prescription Number Last Dispense Date Ordering Provider Order Date Order Qty Source ALLOPURINOL 300MG TAB TAKE ONE TABLET BY MOUTH ONCE DAILY FOR GOUT ORAL 05/01/2024 [id number] DOUGLAS APOLINARI O 2022 90 IELD ASCORBIC ACID 500MG TAB TAKE TWO TABLETS BY MOUTH TWICE DAILY ORAL ACTIVE Tanvi TALBERT 2014 IELD ASPIRIN 81MG TAB,EC TAKE ONE TABLET BY MOUTH DAILY ORAL ACTIVE ZECHARIAH JENSEN 2009 [facility] IELD CALCIUM CARBONATE TAB TAKE 333MG BY MOUTH ONCE DAILY ORAL ACTIVE ALEXANDRIA COLE O 2021 [facility] CHOLECALCIF SYDNIE 25MCG (1,000UNIT) TAB TAKE ONE TABLET BY MOUTH DAILY ORAL ACTIVE ZECHARIAH JENSEN 2009 [facility] IELD DORZOLAMIDE HCL 22.3MG/MARLYN LOL MALEATE 6.8MG/ML SOLN,OPH INSTILL 1 DROP INTO EACH EYE TWICE DAILY TO REDUCE PRESSURE IN THE EYE OPHTHA LMIC 04/25/2024 [id number] 4 LACKEY,LAC EY J 2022 20 [facility] LATANOPROST 0.005% SOLN,OPH INSTILL 1 DROP INTO EACH EYE AT BEDTIME FOR INCREASE D PRESSURE IN THE EYE OPHTHA LMIC 04/25/2024 [id number] 4 LACKEY,LAC EY J 2022 10 [facility] LEVOTHYROXI NE NA 50MCG TAB (SYNTHROID) TAKE ONE TABLET BY MOUTH EVERY MORNING 30 MINUTES BEFORE BREAKFAS T FOR THYROID - TAKE ON AN EMPTY STOMACH WITH A FULL GLASS OF WATER EXCEPT TAKE 2 PILLS EVERY AND FRIDAY ORAL 06/10/2024 [id number] 4 DOUGLAS, APOLINARI O 2022 108 [place] LISINOPRIL 30MG TAB TAKE ONE TABLET BY MOUTH ONCE DAILY TO CONTROL BLOOD PRESSURE CELIA KNAPP MD ORAL ACTIVE 04/22/2025 [id number] 4 DOUGLAS, APOLINARI O 2023 90 [place] LISINOPRIL 30MG TAB TAKE ONE TABLET BY MOUTH ONCE DAILY TO CONTROL BLOOD PRESSURE CELIA KNAPP MD ORAL DISCONT INUED 02/05/2024 [id number] DOUGLAS, APOLINARI O 2022 90 [place] MAGNESIUM OXIDE TAB TAKE 133MG BY MOUTH ONCE DAILY ORAL ACTIVE DOUGLAS, APOLINARI O 2021 [facility] MESALAMINE 500MG CAP,SA TAKE TWO CAPSULES BY MOUTH TWICE DAILY ORAL ACTIVE 08/13/2025 [id number] 5 DOUGLAS, APOLINARI O 2023 360 [place] MESALAMINE 500MG CAP,SA TAKE TWO CAPSULES BY MOUTH TWICE DAILY ORAL DISCONT INUED 06/10/2024 [id number] 4 DOUGLAS, APOLINARI O 2022 360 [place] TAMSULOSIN HCL 0.4MG CAP TAKE ONE CAPSULE BY MOUTH ONCE DAILY FOR ENLARGED PROSTATE TAKE HALF AN HOUR AFTER LAST MEAL OF THE DAY. ORAL 11/12/2024 [id number] 4 DOUGLAS, APOLINARI O 2023 90 [place] ZINC 50MG (FROM SULFATE) CAP TAKE 1 CAPSULE BY MOUTH ONCE DAILY ORAL ACTIVE DOUGLAS, APOLINARI O 2021 [facility] [place] Immunizations Combined list of available immunizations from the Department of Defense and Veterans Affairs facilities. Immunization Series Date Given Administered By Site Reaction Lot Number CVX Code Drug Nitroglycerin Neutralizer Status Comments Source COVID-19 (MODERNA), MRNA, LNP-S, PF, 50 MCG/0.5 ML (AGES 12+ YEARS) 2022 312 complet ed HISTORICA L INFORMATI ON - SOURCE UNSPECIFI ED, [facility] INFLUENZA, UNSPECIFIED FORMULATION 2022 88 complet ed HISTORICA L INFORMATI ON - FROM OTHER REGISTRY, [facility] COVID-19 (PFIZER), [...] SETS H[facility] TDAP 2012 115 complet ed [facility]. See record. [facility] [...] included; 2) Encounters from the Department of [facility] facilities going backup to 280 months. Location Location Details Encounter Type Encounter Number Reason For Visit Attending Provider ADM Date DC Date Status Disposition Source [facility] Outpatient Encounter [id number] 08/19 [facility] Out[facility] Encounter [id number] 09/25 [facility] Out[facility] Encounter [id number] 11/07 [facility] Out[facility] Encounter [id number] 11/07 [facility] Out[facility] Encounter [id number] 11/11 [facility]counter [id number] 11/13 [facility] Out[facility] Encounter [id number] 12/28 [facility] COLLJ & INTERPJ DATA EA 30 D [id number] Diagnos is: ICD-10- CM G47.30 Sleep apnea, unspeci fied RETA ESTRADA A 02/16 [facility] En[facility] [id number] 03/25 [facility] Out[facility] Encounter [id number] 03/29 [facility] Out[facility] Encounter [id number] 04/05 [facility] Encounter [id number] 04/05 [facility] Out[facility] Encounter [id number] 04/19 [facility] Encounter [id number] 04/20 [facility] Encounter [id number] 04/21 [facility]counter [id number] 04/26 [facility] Out[facility] Encounter [id number] 04/30 [facility] Encounter [id number] 05/11 [facility] Encounter [id number] 05/26 [facility]counter [id number] 1.06/04 [facility] Out[facility] Encounter [id number] 1.06/05 [facility]counter [id number]/07 [facility] Encounter [id number] 06/09 [facility] [place] OFFICE O/P EST MOD 30 MIN [id number] Diagnos is: ICD-10- CM Z00.01 Encount er for general adult medical exam w abnorma l finding s Mendez COLE 06/09 [facility] Outpatient Encounter [id number] [facility] Out[facility] Encounter [id number] 1.06/16 [facility] TC MGMT SBSQ ENC [id number] Diagnos is: ICD-10- CM M25.569 Pain in unspeci fied knee Jose LOMAS 06/17 [place] [facility] Out[facility] Encounter [id number] 06/24 [facility] Out[facility] Encounter [id number] 07/09 [facility] Out[facility] Encounter [id number] 07/16 [facility] [place] [facility] MNGMENT TRAINING [id number] Diagnos is: ICD-10- CM M25.569 Pain in unspeci fied knee Jose LOMAS 07/22 [place] [facility] Outpatient Encounter [id number] 08/06 [facility] Out[facility] Encounter [id number] 08/06 [facility] Out[facility] Encounter [id number] 08/10 [facility] Out[facility] Encounter [id number] 08/17 [facility] HEARING AID REPAIR/MOD IFYING [id number] Diagnos is: ICD-10- CM Z46.1 Encount er for fitting and adjustm ent of hearing aid ZULEMA CRISTINA 08/17 [facility] Outpatient Encounter [id number] 12/17 [facility] Out[facility] Encounter [id number] 12/20 [facility] SPECIAL SUPPLIES PHYS/QHP [id number] Diagnos is: ICD-10- CM G47.30 Sleep apnea, unspeci fied YAZAN CANALES 12/28 [facility] [place] [facility] Social History Combined list of available smoking, tobacco, and other social history from Department of Defense and Veterans Affairs facilities. Social History Type Response Date Comment Sourc e Tobacco smoking status CTIS VA-TOBACCO FORMER USER 06/09/2024 [place] History of tobacco use HI-TOBACCO QUIT 15 YRS OR MORE 06/09/2024 [place] History of tobacco use VA-TOBACCO FORMER USER 06/10/2023 [place] History of tobacco use HI-TOBACCO QUIT 15 YRS OR MORE 06/10/2022 [place] History of tobacco use HI-TOBACCO QUIT 15 YRS OR MORE 06/14/2020 [place] History of tobacco use VA-TOBACCO QUIT 15 YRS OR MORE 12/25/2018 [place] History of tobacco use QUIT TOBACCO USE > 7 YEARS AGO 04/28/2018 [place] History of tobacco use QUIT TOBACCO USE > 7 YEARS AGO 12/11/2015 [place] History of tobacco use QUIT TOBACCO USE > 7 YEARS AGO 05/01/2010 stopped tobacco 1998 [facility] Plan of Care List of future care activities from [facility] facilities. Additional future care activities may be listed in the Assessment and Plan section. Date/Time Care Activity Care Activity Detail Facili ty 06/08/2025 AM[facility]ULAT[facility] Advance Directives List of completed, amended, or rescinded Advance Directives on record at Department of Veterans Affairs facilities. An actual copy of the Directive is not included. Date Advance Directive Provider Source 07/09/2010 ADVANCE DIRECTIVE HA REYNOSO [facility]
--- OUTSIDE RECORDS SUMMARY | 2025-02-15 16:39 | XMS_ITS ---
Author Organization [facility] Gaby Daviesley Address [address] [facility] [place] [address] Care Team Providers Care Glass Tube Bender Name Role Phone Brannon Calvert Primary Care Provider Mckinley Sigala Unavailable [phone] Allergies Allergen (clinical drug ingredient) Drug/Non Drug [...] Ordered Date Performed Result Body Sit e 54688-WKSGHOH NAIL, 6 OR MORE 01/11/2025 N/A 55490-GYMH SKIN LESIONS, 2 TO 4 01/11/2025 N/A Encounters Encounter Location Date Provider Diagnosis [facility] [place] [address] [place] [address] 01/11/2025 Mckinley Salgado Type 2 diabetes mellitus [...] INSTRUCTIONS.pdf) Pending Test Test Name Order Date 70434-AMJANJQ NAIL, 6 OR MORE 01/11/2025 53241-JLIN SKIN LESIONS, 2 TO 4 01/12/20 Next Appt Details Follow Up: prn, Reason: Provider Name:Mckinley Salgado , 04/04/2025 02:30:00 PM, [address] [facility], [address], [place], [address], Procedure Notes * Category Sub-Category Detail Notes [...] use of a nail nipper and/or dremel-type roll grinder operator, to a more viable healthy nail plate [...] to maintain effectiveness in symptomatic relief - 89448 Keratoma Treatment Parring or Cutting o f [...] instrumentation by the physician of record - 35173, Q8 Progress Notes * Brannon CANELADOB:1945 (79 yo M)Acc No.[id number]:01/11/2025 Progress Note Patient:?Brannon CANELA Provider:?Mckinley Salgado DPM :1945???Age:79 Y???Sex:Male Robby e:01/11/2025 Address:[address] [place], [place] [address] Pcp:Brannon Calvert Subjective: * Chief Complaints: * [...] mellitus with diabetic peripheral angiopathy without gangrene?Procedure: 94114-VCMB SKIN LESIONS, 2 TO 4 3.?Onychomycosis?Procedure: 92491-HYPGHUY NAIL, 6 OR MORE * Procedures:?Debride Nail [...] use of a nail nipper and/or dremel-type roll grinder operator, to a more viable healthy nail plate [...] to maintain effectiveness in symptomatic relief - 49998.?Keratoma Treatment:?Parring or Cutting of Benign Hyperkeratotic Lesion(s)?(-56) [...] instrumentation by the physician of record - 14116, Q8.? * Procedure Codes:?30862 DEBRI DE NAIL, 6 OR MORE, Modifiers: XS 08743 TRIM SKIN LESIONS, 2 TO 4, Modifiers: [...] Salgado DPM Date:?2024 Generated for Amna arias/Linda/Harvey on:?02/15/2025 04:38 PM [...]
--- OUTSIDE RECORDS SUMMARY | 2025-02-15 16:39 | XMS_ITS ---
Author Organization [facility] Gaby resendiz [place] Address [address] [facility] [place] [address] Care Team Providers Care General Lithographic Worker Name Role Phone Brannon Calvert Primary Care Provider Mckinley Sigala Unavailable [phone] Allergies Allergen (clinical drug ingredient) Drug/Non Drug [...] Ordered Date Performed Result Body Sit e 47062-KBCANLH NAIL, 6 OR MORE 07/02/2024 N/A 88669-DZZE SKIN LESIONS, 2 TO 4 07/02/2024 N/A Encounters Encounter Location Date Provider Diagnosis [facility] [place] [address] [place] [address] 07/02/2024 Mckinley Salgado Type 2 diabetes mellitus [...] Treatment Pending Test Test Name Order Date 63803-GBJWHWM NAIL, 6 OR MORE 07/02/2024 30193-ANRW SKIN LESIONS, 2 TO 4 07/02/20 24 Next Appt Details Follow Up: prn, Reason: Provider Name:Mckinley Salgado , 04/04/2025 02:30:00 PM, [address] [facility], [address], [place], [address], Procedure Notes * Category Sub-Category Detail Notes Debride Nail 6-10 Nail debridement Performance o f this nail treatment by a nonprofessional would put this patients foot and overall health at risk. Therefore, nail debridement was performed extensively to reduce/remove overall nail length, girth, thickness, subungual debris, and necrotic tissue, by manual and/or electrical means through the use of a nail nipper and/or dremel-type convex grinder, to a more viable healthy nail plate or bed tissue 6-10. Silver nitrate used for any petechial bleeding as necessary. Definitive antifungal treatment options have been reviewed and discussed with the patient. The patient chooses, no pharmaceutical tx - 26332 Keratoma Treatment Parring or Cutting o f Benign Hyperkeratotic Lesion(s) (-56) 2-4 Lesions - The Benign hyperkeratotic lesions, as described above were pared, and/or cut utilizing a sterile 15 blade, tissue nippers, and/or dremel - 35264 , Q8 Progress Notes * Brannon CANELADOB:1945 (78 yo M)Acc No.[id number]:07/02/2024 Progress Note Patient:?Brannon Canela Provider:?Mckinley Salgado DPM :1945???Age:78 Y???Sex:Male Robby e:07/02/2024 Address:[address] [place], [place] [address] Pcp:Edward Ryter Subjective: * Chief Complaints: * [...] foot - M79.675? Plan: * Treatment: 2.?Onychomycosis?Procedure: 37952-GAEDZLO NAIL, 6 OR MORE * Procedures:?Debride Nail 6-10:?Nail debridement?Performance of this nail treatment by a nonprofessional would put this patients foot and overall health at risk. Therefore, nail debridement was performed extensively to reduce/remove overall nail length, girth, thickness, subungual debris, and necrotic tissue, by manual and/or electrical means through the use of a nail nipper and/or dremel-type convex grinder, to a more viable healthy nail plate or bed tissue 6-10. Silver nitrate used for any petechial bleeding as necessary. Definitive antifungal treatment options have been reviewed and discussed with the patient. The patient chooses, no pharmaceutical tx - 63694.?Keratoma Treatment:?Parring or Cutting of Benign Hyperkeratotic Lesion(s)?(-56) 2-4 Lesions - The Benign hyperkeratotic lesions, as described above were pared, and/or cut utilizing a sterile 15 blade, tissue nippers, and/or dremel - 86729 , Q8.? * Procedure Codes:?15569 DEBRI DE NAIL, 6 OR MORE, Modifiers: XS 97397 TRIM SKIN LESIONS, 2 TO 4, Modifiers: [...]
== END 2025-02-15 15:21 | disposition home or self-care (01) ==
LOC: HO.RHES 14:26
PROVIDERS: PCP Internal Medicine; Visit Provider Internal Medicine Rheumatology
DX: M17.0 Bilateral primary osteoarthritis of knee (principal); M17.11 Unilateral primary osteoarthritis, right knee; M47.816 Spondylosis without myelopathy or radiculopathy, lumbar region
CPT/HCPCS: 20610; 99213

== ENCOUNTER → 2025-02-15 14:25 | Outpatient (BNVA) | payer OTHER, SELFPAY | PROVIDERS: PCP Internal Medicine; Visit Provider Internal Medicine Rheumatology | DX: M17.11 Unilateral primary osteoarthritis, right knee (principal) | CPT/HCPCS: 20610; J7323 ==

== ENCOUNTER 2025-02-22 14:34 | Outpatient (AMB) | payer OTHER, SELFPAY ==
--- NOTE | 2025-02-22 14:31 | MHC.OFFVIS ---
Vital Signs 02/22/25 14:32 Height 5 ft 9 in Weight 256 lb BMI 37.8 BP 118/70 Blood Pressure Location Lt brachial Position Sitting Pulse 82 Pulse Source Pulse Oximeter Pulse Oximetry (%) 97 Oxygen Delivery Method Room Air Intake Visit Reasons: Euflexxa Intake Note: Patient presents follow up on arthritis today. Accompanied by: Self / Same As Patient Allergies NSAIDS (Non-Steroidal Anti-Inflamma Adverse Reaction (Unknown, Verified 02/22/25 14:32) rectal bleeding HPI HPI Euflexxa: Details: He has reduced pain. Review of Systems Const All systems reviewed & are unremarkable except as noted in HPI and below Physical Exam Vital Signs: Last Vital Signs Pulse 82 02/22/25 14:32 BP 118/70 02/22/25 14:32 Pulse Ox 97 02/22/25 14:32 Oxygen Delivery Method Room Air 02/22/25 14:32 BMI result Body Mass Index 37.8 Const Other: General: Comfortable Skin: No lesions seen MSK: Tender to palpate right joint line. Mild effusion present with warmth. Limited knee flexion. Office Procedures AMB Joint Injection/Aspiration Joint Injection/Aspiration Details: Right knee Prep: site was prepped using aseptic technique Injected: Euflexxa 20 mg was injected into right knee using 25 gauge 1-1/2 inch needle Procedure: The patient tolerated the procedure well. Postprocedure protocol was discussed with patient. Coding 26130 - Large joint Procedure code (CPT) selection complete Office Meds Euflexxa 10 mg/mL (mw 2.4-3.6 million) intra-articular syringe Performing Provider: Ashu Collier MD Performing Location: [facility] Rhe[facility]ology-[facility] Administered by: Ashu Collier MD on 02/22/25 15:15 Dose Route Admin Location Dispensed Lot Number Expiration Date [facility] Durability Technician 20 mg intra-articular 2 mL [id number] [facility] Assessment & Plan Assessment & Plan (1) Osteoarthritis of right knee: Comment: Rheumatology history: Failed cortisone injection. Euflexxa 01/2025- Code(s): M17.11 - Unilateral primary osteoarthritis, right knee Category: Medical Qualifiers: Osteoarthritis type: primary Qualified Code(s): M17.11 - Unilateral primary osteoarthritis, right knee Plan: Patient received right knee cortisone injection this visit Return to clinic in 3 months Orders: Orders AMB Joint Injection/Aspiration Today M17.11 - Unilateral primary osteoarthritis, right knee Medications: New Euflexxa (sodium hyaluronate (viscosup)) 20 mg (2 mL) intra-articular ONCE 2 mL 0RF NS M17.11 - Unilateral primary osteoarthritis, right knee Coding Level of Care Code Est Pt Level 3 (66422) Complex EM visit Add On G2211 Diagnoses Primary osteoarthritis of right knee M17.11 Osteoarthritis type: primary CPT Codes Coding - 53064 Large joint: 80768 - Large joint ([id number])
[2025-02-22 14:32] VITALS: BP 118/70; PULSE 82; O2SAT 97; BMI 37.8
--- OUTSIDE RECORDS SUMMARY | 2025-02-22 15:46 | XMS_ITS | Patient Health Record ---
Author Organization [facility] Gaby [place] Address [address] [facility] [place] [address] Care Team Providers Care Liquor Bridge Operator Helper Name Role Phone Brannon Calvert Primary Care Provider Mckinley Sigala Unavailable [phone] Allergies Allergen (clinical drug ingredient) Drug/Non Drug [...] Problem Acquired hammer toe of right foot (1306546256892 105) Other hammer toe(s) (acquired), right foot (M20.41) Active confirmed Unchanged Problem Type 2 diabetes mellitus with peripheral angiopathy (148337205) Type 2 diabetes mellitus with diabetic peripheral angiopathy without gangrene (E11.51) Active confirmed Problem Acquired hammer toe of left foot (0618643770991 103) Other hammer toe(s) (acquired), left foot (M20.42) Active confirmed Unchanged Vital Signs Blood pressure diastolic 75 mm Hg 01/11/2025 Height 5 ft 9 in in 01/11/2025 Blood pressure systolic 120 mm Hg 01/11/2025 Weight 240 lbs 01/11/2025 BMI 35.44 kg/m2 01/11/2025 Procedures Procedure Date Ordered Date Performed Result Body Sit e 13570-ZCVDMJZ NAIL, 6 OR MORE 04/20/2024 N/A 83410-EPGA SKIN LESIONS, 2 TO 4 04/20/2024 N/A 52550-RTPMUBD NAIL, 6 OR MORE 07/02/2024 N/A 40835-VFDO SKIN LESIONS, 2 TO 4 07/02/2024 N/A 32599-OAWCYLO NAIL, 6 OR MORE 10/08/2024 N/A 50352-VVVV SKIN LESIONS, 2 TO 4 10/08/2024 N/A 92990-SYJAXDE NAIL, 6 OR MORE 01/11/2025 N/A 83140-FHIE SKIN LESIONS, 2 TO 4 01/11/2025 N/A Encounters Encounter Location Date Provider Diagnosis [address] [address] 04/20/2024 Mckinley Salgado Type 2 diabetes mellitus with diabetic peripheral angiopathy without gangrene E11.51 ; Onychomycosis B35.1 ; Pain of toe of right foot M79.674 ; Pain of toe of left foot M79.675 ; Other hammer toe(s) (acquired), right foot M20.41 and Other hammer toe(s) (acquired), left foot M20.[address] [address] 07/02/2024 Mckinley Salgado Type 2 diabetes mellitus with diabetic peripheral angiopathy without gangrene E11.51 ; Onychomycosis B35.1 ; Pain of toe of right foot M79.674 and Pain of toe of left foot M79.[address] [address] 10/08/2024 Mckinley Salgado Type 2 diabetes mellitus with diabetic peripheral angiopathy without gangrene E11.51 ; Onychomycosis B35.1 ; Pain of toe of right foot M79.674 and Pain of toe of left foot M79.[address] [address] 01/11/2025 Mckinley Salgado Type 2 diabetes mellitus with diabetic peripheral angiopathy without gangrene E11.51 ; Other hammer toe(s) (acquired), right foot M20.41 ; Onychomycosis B35.1 ; Pain of toe of right foot M79.674 ; Pain of toe of left foot M79.675 and Other hammer toe(s) (acquired), left foot M20.42 [facility] [address] [address] 06/22/2024 Mckinley Turciosier Assessments Encounter Date Diagnosis [...] X ray : Foot, right 3V 10/27/2018 46590-WOYYAUG NAIL, 6 OR MORE 10/08/2024 76287-IXYYZDQ NAIL, 6 OR MORE 01/11/2025 42109-LPCYJRH NAIL, 6 OR MORE 10/28/2023 77987-VYUDIFX NAIL, 6 OR MORE 02/13/2024 79660-XSEVRTR NAIL, 6 OR MORE 04/20/2024 45833-GDQTIEF NAIL, 6 OR MORE 07/02/2024 17118-HKOAUCA NAIL, 6 OR MORE 11/17/2018 47147-HZONMHY NAIL, 6 OR MORE 01/19/2019 82611-AGCWOFB NAIL, 6 OR MORE 04/06/2019 65218-NEYMKLP NAIL, 6 OR MORE 08/10/2019 69725-QZUGNSL NAIL, 6 OR MORE 12/17/2019 40226-KTYOQWL NAIL, 6 OR MORE 02/22/2020 59448-FFEBGRK NAIL, 6 OR MORE 04/25/2020 35179-TPWUTTB NAIL, 6 OR MORE 07/25/2020 64793-RLZMMLF NAIL, 6 OR MORE 09/29/2020 41145-AZOWHPO NAIL, 6 OR MORE 12/01/2020 49449-OWJVARV NAIL, 6 OR MORE 02/02/2021 00922-THHCZAX NAIL, 6 OR MORE 05/08/2021 77338-IXPDBEU NAIL, 6 OR MORE 07/24/2021 80984-RHPYOPM NAIL, 6 OR MORE 09/28/2021 15970-MNGHITH NAIL, 6 OR MORE 12/11/2021 65490-ROGKLYW NAIL, 6 OR MORE 02/22/2022 42683-VRELDZK NAIL, 6 OR MORE 04/26/2022 43087-NHBBDMW NAIL, 6 OR MORE 07/12/2022 37719-NSKMWSG NAIL, 6 OR MORE 09/27/2022 48882-VNCCIAU NAIL, 6 OR MORE 06/06/2015 17499-HSVJVPA NAIL, 6 OR MORE 09/19/2015 79539-EBIZKSU NAIL, 6 OR MORE 12/19/2015 36067-VBPILOT NAIL, 6 OR MORE 03/22/2016 06174-MAKMESU NAIL, 6 OR MORE 07/02/2016 68187-HKTWLJU NAIL, 6 OR MORE 10/04/2016 71645-WVNJNIJ NAIL, 6 OR MORE 01/14/2017 36170-DRIGJCC NAIL, 6 OR MORE 04/18/2017 34238-FRKMFDB NAIL, 6 OR MORE 07/18/2017 19947-VBKRPXG NAIL, 6 OR MORE 10/28/2017 96409-BIPWTHO NAIL, 6 OR MORE 01/13/2018 30415-SSJGVUB NAIL, 6 OR MORE 03/24/2018 31075-OCTSUWH NAIL, 6 OR MORE 05/29/2018 47632-BVSOEYJ NAIL, 6 OR MORE 08/11/2018 53432-LEBNZSV NAIL, 6 OR MORE 12/10/2022 61870-IXPNFGB NAIL, 6 OR MORE 02/21/2023 25023-FHKKJRV NAIL, 6 OR MORE 05/09/2023 25679-UCRNHBC NAIL, 6 OR MORE 07/22/2023 90962-XUJQ SKIN LESIONS, 2 TO 4 07/22/20 68573-BPDO SKIN LESIONS, 2 TO 4 05/09/20 84029-HVCN SKIN LESIONS, 2 TO 4 02/22/20 47672-KYDR SKIN LESIONS, 2 TO 4 12/10/19 95833-VZWT SKIN LESIONS, 2 TO 4 09/27/20 83875-VEDA SKIN LESIONS, 2 TO 4 07/02/20 24 98156-MEBK SKIN LESIONS, 2 TO 4 04/20/20 24 87404-ILGG SKIN LESIONS, 2 TO 4 02/13/20 24 45622-THSE SKIN LESIONS, 2 TO 4 10/28/19 24 68169-NNNL SKIN LESIONS, 2 TO 4 01/12/20 25 44951-BHJG SKIN LESIONS, 2 TO 4 10/08/20 Next Appt Details Provider Name:Mckinley Salgado , 04/04/2025 02:30:00 PM, [address] [facility] [address], [place], [address], Insurance Providers Payer Name Payer Address Payer Phone Subscriber Number Group Number Insured Name Patient Relationship to Insured Coverage Start Date Coverage End Date [employer] [address] [place] [address] [id number] Brannon Canela Self - patient is the insured 4 Medical (General) History Medical History History ICD Code Cataracts Crohns disease Arthritis Cholesterol Hypertension Thyroid type II diabetes Surgical History Surgery Date(Month/Year) appendectomy 2010 eye surgery - eyelidectomy 2011 Og cataract surgery 10/23/22,11/06/22
--- OUTSIDE RECORDS SUMMARY | 2025-02-22 15:47 | XMS_ITS ---
Author Organization [facility] Gaby resendiz [place] Address [address] [facility] [place] [address] Care Team Providers Care Rivet Thrower Name Role Phone Brannon Calvert Primary Care Provider Mckinley Sigala Unavailable [phone] Allergies Allergen (clinical drug ingredient) Drug/Non Drug [...] Ordered Date Performed Result Body Sit e 90334-ZPJPTAY NAIL, 6 OR MORE 07/02/2024 N/A 47520-EYBK SKIN LESIONS, 2 TO 4 07/02/2024 N/A Encounters Encounter Location Date Provider Diagnosis [facility] [place] [address] [place] [address] 07/02/2024 Mckinley Salgado Type 2 diabetes mellitus [...] Treatment Pending Test Test Name Order Date 45333-WPDVUDZ NAIL, 6 OR MORE 07/02/2024 56795-FAKX SKIN LESIONS, 2 TO 4 07/02/20 24 Next Appt Details Follow Up: prn, Reason: Provider Name:Mckinley Salgado , 04/04/2025 02:30:00 PM, [address] [facility], [address], [place], [address], Procedure Notes * Category Sub-Category Detail Notes Debride Nail 6-10 Nail debridement Performance o f this nail treatment by a nonprofessional would put this patients foot and overall health at risk. Therefore, nail debridement was performed extensively to reduce/remove overall nail length, girth, thickness, subungual debris, and necrotic tissue, by manual and/or electrical means through the use of a nail nipper and/or dremel-type universal grinder operator, to a more viable healthy nail plate or bed tissue 6-10. Silver nitrate used for any petechial bleeding as necessary. Definitive antifungal treatment options have been reviewed and discussed with the patient. The patient chooses, no pharmaceutical tx - 39866 Keratoma Treatment Parring or Cutting o f Benign Hyperkeratotic Lesion(s) (-56) 2-4 Lesions - The Benign hyperkeratotic lesions, as described above were pared, and/or cut utilizing a sterile 15 blade, tissue nippers, and/or dremel - 89767 , Q8 Progress Notes * Brannon CANELADOB:1945 (78 yo M)Acc No.[id number]:07/02/2024 Progress Note Patient:?Brannon Canela Provider:?Mckinley Salgado DPM :1945???Age:78 Y???Sex:Male Robby e:07/02/2024 Address:[address] [place], [place] [address] Pcp:Edward Ryter Subjective: * Chief Complaints: * [...] foot - M79.675? Plan: * Treatment: 2.?Onychomycosis?Procedure: 52739-LFOWBXO NAIL, 6 OR MORE * Procedures:?Debride Nail 6-10:?Nail debridement?Performance of this nail treatment by a nonprofessional would put this patients foot and overall health at risk. Therefore, nail debridement was performed extensively to reduce/remove overall nail length, girth, thickness, subungual debris, and necrotic tissue, by manual and/or electrical means through the use of a nail nipper and/or dremel-type universal grinder operator, to a more viable healthy nail plate or bed tissue 6-10. Silver nitrate used for any petechial bleeding as necessary. Definitive antifungal treatment options have been reviewed and discussed with the patient. The patient chooses, no pharmaceutical tx - 56660.?Keratoma Treatment:?Parring or Cutting of Benign Hyperkeratotic Lesion(s)?(-56) 2-4 Lesions - The Benign hyperkeratotic lesions, as described above were pared, and/or cut utilizing a sterile 15 blade, tissue nippers, and/or dremel - 25407 , Q8.? * Procedure Codes:?79509 DEBRI DE NAIL, 6 OR MORE, Modifiers: XS 26028 TRIM SKIN LESIONS, 2 TO 4, Modifiers: XS , Q8 * Preventive Medicine:? ??Screening/Special Tests:?Fall Risk?Assessment:?Performed ?Plan of Care:?Documented ?Screening:?No falls in the past year ?FALLS: Screening for Future Fall Risk?Have you had any falls with injury in the past year??No * Follow Up:?prn * Images: * Sign off status: Completed true * Provider:?Mckinley Salgado DPM Date:?2023 Generated for Amna arias/Linda/Harvey on:?02/22/2025 03:47 PM EDT History and Physical Notes * [...]
--- OUTSIDE RECORDS SUMMARY | 2025-02-22 15:47 | XMS_ITS ---
Author Organization [facility] Gaby resendiz [place] Address [address] [facility] [place] [address] Care Team Providers Care Roving Court Reporter Name Role Phone Brannon Calvert Primary Care Provider Mckinley Sigala Unavailable [phone] Allergies Allergen (clinical drug ingredient) Drug/Non Drug [...] Ordered Date Performed Result Body Sit e 84188-TWTVABV NAIL, 6 OR MORE 10/08/2024 N/A 64222-HENT SKIN LESIONS, 2 TO 4 10/08/2024 N/A Encounters Encounter Location Date Provider Diagnosis [facility] [address] [address] 10/08/2024 Mckinley Salgado Type 2 diabetes mellitus [...] Treatment Pending Test Test Name Order Date 58644-OROQUPG NAIL, 6 OR MORE 10/08/2024 68072-UVNK SKIN LESIONS, 2 TO 4 10/08/20 24 Next Appt Details Follow Up: prn, Reason: Provider Name:Mckinley Salgado , 04/04/2025 02:30:00 PM, [address] , [address], [place], [address], Procedure Notes * Category Sub-Category Detail Notes [...] use of a nail nipper and/or dremel-type loader magazine grinder, to a more viable healthy nail [...] to maintain effectiveness in symptomatic relief - 29655 Keratoma Treatment Parring or Cutting o f [...] instrumentation by the physician of record - 99644, Q8 Progress Notes * Brannon CANELADOB:1945 (78 yo M)Acc No.[id number]:10/08/2024 Progress Note Patient:?Brannon CANELA Provider:?Mckinley Salgado DPM :1945???Age:78 Y???Sex:Male Robby e:10/08/2024 Address: [place] Pcp:Brannon Calvert Subjective: * Chief Complaints: [...] foot - M79.675??? Plan: * Treatment: 2.?Onychomycosis?Procedure: 02278-PMYFMPU NAIL, 6 OR MORE * Procedures:?Debride Nail [...] use of a nail nipper and/or dremel-type loader magazine grinder, to a more viable healthy nail [...] to maintain effectiveness in symptomatic relief - 91420.?Keratoma Treatment:?Parring or Cutting of Benign Hyperkeratotic Lesion(s)?(-56) [...] instrumentation by the physician of record - 82650, Q8.? * Procedure Codes:?05438 DEBRI DE NAIL, 6 OR MORE, Modifiers: XS 59366 TRIM SKIN LESIONS, 2 TO 4, Modifiers: XS , Q8 * Follow Up:?prn * Images: * Sign off status: Completed true * Provider:?Mckinley Salgado DPM Date:?2023 Generated for Amna arias/Linda/Harvey on:?02/22/2025 03:46 PM EDT History and Physical Notes * [...]
--- OUTSIDE RECORDS SUMMARY | 2025-02-22 15:47 | XMS_ITS | Continuity of Care Document ---
Author Name [facility] Organization [facility] Care Team Providers Care Service Writer Advisor Name Role Phone [facility] Unavailable Unavailable Problems Combined list of problems from Department of Defense and Veterans Affairs facilities. It does not include entries that were removed or entered in error. Problem Status Onset Date Problem Type Date of Resolution Comments Source Sleep apnea Active 006 Condition [facility] Ulcerative colitis Active 003 Condition May 01, [...] 2018 Entered By: MIHIR FORTUNE Comment: GI- [place] Bilateral Cataracts Active Condition [facility] Chronic neck pain Active Condition Au 2017 Entered By: PRIYANK TALBERT Comment: treated by capsaicin cream [facility] Essential hypertension (SNOMED CT 91150550) Active Condition [place] Gout Active Condition Oct 21 Entered By: PRIYANK TALBERT Comment: Diagnosed by Dr. 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 Appiah [facility] Physiatry, Also referred to [facility] Dr. Treadwell 2015 Entered By: LUIS MIGUEL OCHOA Comment: MRI [facility] 08/2015 L3-L4 severe central spinal stenosis [facility] Microscopic hematuria Active Condition Jul 02, 2010 Entered By: MICHELLE CARRILLO RA Comment: Vanessa David MD: Urologist: YearlyYen 2016 Entered By: PRIYANK TALBERT Comment: Recent CT ABD/PELVIS with and without contrast did not show any kidney stones-January 2017 [facility] Obesity * (ICD-9-CM 278.00) Active Condition [facility] Opthalmology Active Condition May 10, 2020 Entered By: MIHIR FORTUNE Comment: Dr. Ritesh Purvis 2019 Entered By: QUENTIN CORONA Comment: Last Eye Exam 05/01/2020 [place] Osteoarthritis of knee Active Condition Jun 01, 2018 Entered By: PRIYANK TALBERT Comment: [facility] Outside PCP Active Condition May 10, 2020 Entered By: MIHIR FORTUNE Comment: Dr. Constantin Andrea [facility] Pure hypercholesterolemia * (ICD-9-CM 272.0) Active Condition [facility] Type 2 diabetes mellitus Active Condition May 12, 2019 Entered By: MIHIR FORTUNE Comment: PCP-Dr.Nathan Andrea [facility] Ulcerative colitis Active Condition [facility] -2008: Appendectomy Inactive Condition 12/25/2018 [place] Diabetes Mellitus Type II or unspecified * (ICD-9-CM 250.00) Inactive Condition 04/03/2015 [facility] Diagnosis: ICD-10-CM G47.30 Sleep apnea, unspecified Active Diagnosis [facility] Diagnosis: ICD-10-CM Z46.1 Encounter for fitting and adjustment of hearing aid Active Diagnosis [facility] Diagnosis: ICD-10-CM M25.569 Pain in unspecified knee Active Diagnosis [facility] Diagnosis: ICD-10-CM Z00.01 Encounter for general adult medical exam w abnormal findings Active Diagnosis [facility] Medications Combined list of outpatient medications from Department of Defense and Veterans Affairs facilities.Medications provided include 1) outpatient medications from the last 15 months, and 2) patient-reported medications. Medication Details Route Status Patient Instructions Prescription Expires Prescription Number Last Dispense Date Ordering Provider Order Date Order Qty Source ALLOPURINOL 300MG TAB TAKE ONE TABLET BY MOUTH ONCE DAILY FOR GOUT ORAL 05/01/2024 [id number] DOUGLAS, APOLINARI O 2022 90 [place] ASCORBIC ACID 500MG TAB TAKE TWO TABLETS BY MOUTH TWICE DAILY ORAL ACTIVE Tanvi TALBERT 2014 [place] ASPIRIN 81MG TAB,EC TAKE ONE TABLET BY MOUTH DAILY ORAL ACTIVE ZECHARIAH JENSEN 2009 [place] CALCIUM CARBONATE TAB TAKE 333MG BY MOUTH ONCE DAILY ORAL ACTIVE DOUGLAS, APOLINARI O 2021 [facility] [place] [facility] CHOLECALCIF SYDNIE 25MCG (1,000UNIT) TAB TAKE ONE TABLET BY MOUTH DAILY ORAL ACTIVE ZECHARIAH JENSEN 2009 [place] LEVOTHYROXI NE NA 50MCG TAB (SYNTHROID) TAKE ONE TABLET BY MOUTH EVERY MORNING 30 MINUTES BEFORE BREAKFAS T FOR THYROID - TAKE ON AN EMPTY STOMACH WITH A FULL GLASS OF WATER EXCEPT TAKE 2 PILLS EVERY AND FRIDAY ORAL 06/10/2024 [id number] 4 DOUGLAS, APOLINARI O 2022 108 [place] LISINOPRIL 30MG TAB TAKE ONE TABLET BY MOUTH ONCE DAILY TO CONTROL BLOOD PRESSURE CELIA KNAPP MD ORAL ACTIVE 04/22/2025 [id number] 4 DOUGLAS, APOLINARI O 2023 90 [place] LISINOPRIL 30MG TAB TAKE ONE TABLET BY MOUTH ONCE DAILY TO CONTROL BLOOD PRESSURE CELIA KNAPP MD ORAL DISCONT INUED 02/05/2024 [id number] 4 DOUGLAS, APOLINARI O 2022 90 [place] MAGNESIUM OXIDE TAB TAKE 133MG BY MOUTH ONCE DAILY ORAL ACTIVE DOUGLAS, APOLINARI O 2021 [facility] MESALAMINE 500MG CAP,SA TAKE TWO CAPSULES BY MOUTH TWICE DAILY ORAL ACTIVE 08/13/2025 [id number] 5 DOUGLAS, APOLINARI O 2023 360 [place] MESALAMINE 500MG CAP,SA TAKE TWO CAPSULES BY MOUTH TWICE DAILY ORAL DISCONT INUED 06/10/2024 [id number] 4 DOUGLAS, APOLINARI O 2022 360 [place] TAMSULOSIN HCL 0.4MG CAP TAKE ONE CAPSULE BY MOUTH ONCE DAILY FOR ENLARGED PROSTATE TAKE HALF AN HOUR AFTER LAST MEAL OF THE DAY. ORAL 11/12/2024 [id number] 4 DOUGLAS, APOLINARI O 2023 90 [place] ZINC 50MG (FROM SULFATE) CAP TAKE 1 CAPSULE BY MOUTH ONCE DAILY ORAL ACTIVE DOUGLAS, APOLINARI O [address] [facility] Immunizations Combined list of available immunizations from the Department of Defense and Veterans Affairs facilities. Immunization Series Date Given Administered By Site Reaction Lot Number CVX Code Drug Mailroom Personnel Status Comments Source COVID-19 (MODERNA), MRNA, LNP-S, PF, 50 MCG/0.5 ML (AGES 12+ YEARS) 2022 312 complet ed HISTORICA L INFORMATI ON - SOURCE UNSPECIFI ED, [facility] INFLUENZA, UNSPECIFIED FORMULATION 2022 88 complet ed HISTORICA L INFORMATI ON - FROM OTHER [facility], [facility] COVID-19 (PFIZER), MRNA, LNP-S, BIVALENT BOOSTER, PF, 30 MCG/0.3 ML DOSE 1 [address] [facility] INFLUENZA VACCINE, QUADRIVALENT, ADJUVANTED 2021 205 [...] [facility] TDAP 2012 115 complet ed [facility] See record. [facility] [id number] 09/25 [facility] En[facility] [id number] 11/07 [facility] Encounter [id number] 11/07 [facility] Encounter [id number] 11/11 [facility] En[facility] [id number] 11/13 [facility] En[facility] [id number] 12/28 [facility] COLLJ & INTERPJ DATA EA 30 D [id number] Diagnos is: ICD-10- CM G47.30 Sleep apnea, unspeci fied RETA ESTRADA 02/16 [facility] [id number] 03/25 [facility] En[facility] [id number] 03/29 [facility] En[facility] [id number] 04/05 [facility] En[facility] [id number] 04/05 [facility] En[facility] [id number] 04/19 [facility] En[facility] [id number] 04/20 [facility] En[facility] [id number] 04/21 [facility] En[facility] [id number] 04/26 [facility] En[facility] [id number] 04/30 [facility] En[facility] [id number] 05/11 [facility] Out[facility] Encounter [id number] 05/26 [facility] Out[facility] Encounter [id number] 06/04 [facility] Encounter [id number] 06/05 [facility] Encounter [id number] 06/07 [facility] En[facility] [id number] 06/09 [facility] [place] [facility] O/P EST MOD 30 MIN [id number] Diagnos is: ICD-10- CM Z00.01 Encount er for general adult medical exam w montsea gary NIEVESRANMendez Simms 06/09 [place] [facility] Out[facility] Encounter [id number] [facility] Encounter [id number] 1.06/16 [facility] [place] ORTHC/PROS TC MGMT SBSQ ENC [id number] Diagnos is: ICD-10- CM M25.569 Pain in unspeci fied knee CESILIAJose CHANO 06/17 [place] [facility] Out[facility] Encounter [id number] 1.06/24 [facility] Encounter [id number] 1.07/09 [facility] Out[facility] Encounter [id number] 1.07/16 [facility] [place] [facility] SELF CARE MNGMENT TRAINING [id number] Diagnos is: ICD-10- CM M25.569 Pain in unspeci fied knee CESILIAJose CHANO 07/22 [place] [facility] Out[facility] Encounter [id number] 08/06 [facility] En[facility] [id number] 08/06 [facility] Out[facility] Encounter [id number] 08/10 [facility] Encounter [id number] 08/17 [facility] HEARING AID REPAIR/MOD IFYING [id number] Diagnos is: ICD-10- CM Z46.1 Encount er for fitting and adjustm ent of hearing aid ZULEMA CRISTINA 08/17 [facility] Outpatient Encounter [id number] 12/17 [facility] Outpatient Encounter [id number] 12/20 [facility] SPECIAL SUPPLIES PHYS/QHP [id number] Diagnos is: ICD-10- CM G47.30 Sleep apnea, unspeci fied JARMOLOWIC Z,YAZAN 12/28 [facility] Outpatient Encounter [id number] 02/22 [facility] [place] Social History Combined list of available smoking, tobacco, and other social history from Department of Defense and Veterans Affairs facilities. Social History Type Response Date Comment Sour e Tobacco smoking status [facility] VA-TOBACCO FORMER USER 06/09/2024 [place] History of tobacco use PA-TOBACCO QUIT 15 YRS OR MORE 06/09/2024 [place] History of tobacco use VA-TOBACCO FORMER USER 06/10/2023 [place] History of tobacco use VA-TOBACCO FORMER USER 06/10/2022 [place] History of tobacco use PA-TOBACCO QUIT 15 YRS OR MORE 06/14/2020 [place] History of tobacco use VA-TOBACCO QUIT 15 YRS OR MORE 12/25/2018 [place] History of tobacco use QUIT TOBACCO USE > 7 YEARS AGO 04/28/2018 [place] History of tobacco use QUIT TOBACCO USE > 7 YEARS AGO 12/11/2015 [place] History of tobacco use QUIT TOBACCO USE > 7 YEARS AGO 05/01/2010 stopped tobacco 1998 [place] Plan of Care List of future care activities from [facility] facilities. Additional future care activities may be listed in the Assessment and Plan section. Date/Time Care Activity Care Activity Detail Facili ty 06/08/2025 AMBULATORY - MEDICINE AMBULATORY - MEDICI [facility] Advance Directives List of completed, amended, or rescinded Advance Directives on record at Department [facility] facilities. An actual copy of the Directive is not included. Date Advance Directive Provider Source 07/09/2010 [facility]
--- OUTSIDE RECORDS SUMMARY | 2025-02-22 15:47 | XMS_ITS ---
Author Name [facility] [facility] Address [address] [place] [address] Care Team Providers Care Velvet Weaver Name Role Phone DYLAN GRANDA Primary Care [...] Name Patient's Relationship to Policy [facility] MEDICARE ADVANTAGE MCR ([facility]) Aug 20, 2014 [id number] PATIENT [facility] ([facility] MEDICARE ADVANTAGE MCR ([facility] Aug 20, 2014 [id number] PATIENT [facility] ([facility] MEDICARE ADVANTAGE MCR ([facility] Aug 20, 2014 [id number] PATIENT Selected Encounter This section includes the information on record at [place] for the Encounter. Date/Time Encounter Type Encounter Description Reason Pro vider Source February 22, 2025 02:07 PM Outpatient Encounter PRIMARY CARE/MEDICINE IHE Encounter Template Text not used by [place] Plan of Treatment: Future Appointments (+ 6 months) and Future Tests (+/- 45 days) The Plan of Treatment section includes future care activities for the patient from all [place] treatmentfacilities. This section includes future appointments and future orders which are active, pending or scheduled. Future Appointments This section includes appointments that were scheduled to occur 6 months from the date of the Encounter, up to a maximum of 20 appointments. The data comes from all [place] treatment facilities. Appointment Date/Time Appointment Type Appointme nt Facility Name Jun 08, 2025 09:00 AM AMBULATORY - MEDICINE [place] [facility] Advance Directives: All historical and current Section Date Range: From patient's date of to the date document was created. This section includes ALL of a patient's completed or amended [place] Advance and Rescinded Directives. The entries below indicate that a directive exists for the patient, but an actual copy is not included with this document. The data comes from all [place] facilities. Date Advance Directives Provider Source Jul 09, 2010 ADVANCE DIRECTIVE HA RE[facility]NOSO [facility] Encounter Notes: All associated encounter notes This section contains the clinical notes associated to the Encounter. Date/Time Encounter Note(s) Provider Source February 22, 2025 02:07 PM PRIMARY CARE NOTE: LOCAL TITLE: WALK-IN NOTE PRIMARY CARE (T) STANDARD TITLE: PRIMARY CARE NOTE DATE OF NOTE: FEBRUARY 22, 2025@14:07 ENTRY DATE: FEBRUARY 22, 2025@14:07:31 AUTHOR: CASEY ARIZA COSIGNER: URGENCY: STATUS: COMPLETED <====Click to Start Advanced Medical Support Haw[place] presents to the Primary Care clinic with the following request: [ ]Medication Renewal/Refill [ ]Consultation with Team RN [ ]Symptoms [ X ]Other The [place] states they are: [ ]Waiting [ X ]Not Waiting No Walk in visit scheduled with PACT Nurse [ X ] At this encounter the Hawthorne's demographics were verified. [ X ] At this encounter the Hawthorne's Insurance information was verified. [ X ] At this encounter the below scheduled visits for the were discussed and appointment reminder card was offered. STATED HE TRIED CONTACTING AUDIOLOGY DEPT TO SCHEDULE AN APPT ON MY [employer] AND DID NOT GET A RESPONSE. IS CHECKING ON STATUS OF AUDIOLOGY APPT REQUEST. CAN BE REACHED AT [phone]. Future appointments: 06/08/2025 09:00 SPR PACT 9 /rodolfo/ LIVIA ARIZA ADVANCED HAND GLASS CUTTER Signed: 02/22/2025 14:10 Receipt Acknowledged By: 02/22/2025 14:43 /es/ HASEEB VILLAVICENCIO LPN LPN 02/22/2025 14:14 /rodolfo/ CRYSTAL COLBERTN,RN-BC REGISTERED NURSE (RN) LIVIA ARIZA [place]
--- OUTSIDE RECORDS SUMMARY | 2025-02-22 15:47 | XMS_ITS ---
Author Organization [facility] [place] Address [address] [place] [address] Care Team Providers Care Lead Radiologic Technologist Name Role Phone Brannon Calvert Primary Care Provider Mckinley Sigala Unavailable [phone] Allergies Allergen (clinical drug ingredient) Drug/Non Drug [...] Ordered Date Performed Result Body Sit e 85461-ZOXXZDZ NAIL, 6 OR MORE 01/11/2025 N/A [id number] SKIN LESIONS, 2 TO 4 01/11/2025 N/A Encounters Encounter Location Date Provider Diagnosis [facility] [place] [address] [place] [address] 01/11/2025 Mckinley Salgado Type 2 diabetes mellitus [...] INSTRUCTIONS.pdf) Pending Test Test Name Order Date [id number] NAIL, 6 OR MORE 01/11/2025 41662-PVQC SKIN LESIONS, 2 TO 4 01/12/20 Next Appt Details Follow Up: prn, Reason: Provider Name:Mckinley Salgado , 04/04/2025 02:30:00 PM, [address], [address], [place], [address], Procedure Notes * Category Sub-Category Detail Notes [...] use of a nail nipper and/or dremel-type skull grinder, to a more viable healthy nail [...] to maintain effectiveness in symptomatic relief - 57518 Keratoma Treatment Parring or Cutting o f [...] instrumentation by the physician of record - 30385, Q8 Progress Notes * Brannon CANELADOB:1945 (79 yo M)Acc No.[id number]:01/11/2025 Progress Note Patient:?Brannon CANELA Provider:?Mckinley Salgado DPM :1945???Age:79 Y???Sex:Male Robby e:01/11/2025 Address:[address] [place], [place] [id number] Pcp:Brannon Calvert Subjective: * Chief Complaints: * [...] mellitus with diabetic peripheral angiopathy without gangrene?Procedure: 86561-RWGS SKIN LESIONS, 2 TO 4 3.?Onychomycosis?Procedure: 68867-PPHPZZI NAIL, 6 OR MORE * Procedures:?Debride Nail [...] use of a nail nipper and/or dremel-type skull grinder, to a more viable healthy nail [...] to maintain effectiveness in symptomatic relief - 34557.?Keratoma Treatment:?Parring or Cutting of Benign Hyperkeratotic Lesion(s)?(-56) [...] instrumentation by the physician of record - 74779, Q8.? * Procedure Codes:?05557 DEBRI DE NAIL, 6 OR MORE, Modifiers: XS 06438 TRIM SKIN LESIONS, 2 TO 4, Modifiers: [...] Salgado DPM Date:?2024 Generated for Amna arias/Linda/Harvey on:?02/22/2025 03:46 PM [...]
== END 2025-02-22 15:02 | disposition home or self-care (01) ==
PROVIDERS: PCP Internal Medicine; Visit Provider Internal Medicine Rheumatology
DX: M17.11 Unilateral primary osteoarthritis, right knee (principal)
CPT/HCPCS: 20610; 99213

== ENCOUNTER → 2025-02-22 14:34 | Outpatient (BNVA) | payer OTHER, SELFPAY | PROVIDERS: PCP Internal Medicine; Visit Provider Internal Medicine Rheumatology | DX: M17.11 Unilateral primary osteoarthritis, right knee (principal) | CPT/HCPCS: 20610; J7323 ==

== ENCOUNTER 2025-03-22 12:00 | Outpatient (REF) | payer OTHER, SELFPAY ==
--- OUTSIDE RECORDS SUMMARY | 2025-03-22 13:29 | XMS_ITS | Patient Health Record ---
Author Organization [facility] Gaby Harris Address [address] [facility] [place] [address] Care Team Providers Care Remote Encoding Center Manager Name Role Phone Brannon Calvert Primary Care Provider Mckinley Sigala Unavailable [phone] Allergies Allergen (clinical drug ingredient) Drug/Non Drug [...] Problem Acquired hammer toe of right foot (8893578575827 105) Other hammer toe(s) (acquired), right foot (M20.41) Active confirmed Unchanged Problem Type 2 diabetes mellitus with peripheral angiopathy (504086437) Type 2 diabetes mellitus with diabetic peripheral angiopathy without gangrene (E11.51) Active confirmed Problem Acquired hammer toe of left foot (8697891556086 103) Other hammer toe(s) (acquired), left foot (M20.42) Active confirmed Unchanged Vital Signs Blood pressure diastolic 75 mm Hg 01/11/2025 Height 5 ft 9 in in 01/11/2025 Blood pressure systolic 120 mm Hg 01/11/2025 Weight 240 lbs 01/11/2025 BMI 35.44 kg/m2 01/11/2025 Procedures Procedure Date Ordered Date Performed Result Body Sit e 43730-LMUOGLM NAIL, 6 OR MORE 04/20/2024 N/A 38991-DSUW SKIN LESIONS, 2 TO 4 04/20/2024 N/A 04061-WAQUYHG NAIL, 6 OR MORE 07/02/2024 N/A 58804-ECPL SKIN LESIONS, 2 TO 4 07/02/2024 N/A 41306-SJLRCAO NAIL, 6 OR MORE 10/08/2024 N/A 70510-QSHB SKIN LESIONS, 2 TO 4 10/08/2024 N/A 00976-KCGUEIW NAIL, 6 OR MORE 01/11/2025 N/A 44423-FXXN SKIN LESIONS, 2 TO 4 01/11/2025 N/A Encounters Encounter Location Date Provider Diagnosis [address] [address] 04/20/2024 Mckinley Salgado Type 2 diabetes mellitus with diabetic peripheral angiopathy without gangrene E11.51 ; Onychomycosis B35.1 ; Pain of toe of right foot M79.674 ; Pain of toe of left foot M79.675 ; Other hammer toe(s) (acquired), right foot M20.41 and Other hammer toe(s) (acquired), left foot M20.[address] [address] 07/02/2024 Mckinley Salgado Type 2 diabetes mellitus with diabetic peripheral angiopathy without gangrene E11.51 ; Onychomycosis B35.1 ; Pain of toe of right foot M79.674 and Pain of toe of left foot M79.[address] [address] 10/08/2024 Mckinley Salgado Type 2 diabetes mellitus with diabetic peripheral angiopathy without gangrene E11.51 ; Onychomycosis B35.1 ; Pain of toe of right foot M79.674 and Pain of toe of left foot M79.[address] [address] 01/11/2025 Mckinley Salgado Type 2 diabetes mellitus with diabetic peripheral angiopathy without gangrene E11.51 ; Other hammer toe(s) (acquired), right foot M20.41 ; Onychomycosis B35.1 ; Pain of toe of right foot M79.674 ; Pain of toe of left foot M79.675 and Other hammer toe(s) (acquired), left foot M20.42 [facility] [address] [address] 06/22/2024 Mckinley Turciosier Assessments Encounter Date Diagnosis [...] X ray : Foot, right 3V 10/27/2018 04206-KZMKICQ NAIL, 6 OR MORE 10/08/2024 24961-RBNYRGH NAIL, 6 OR MORE 01/11/2025 57727-WQJYPRG NAIL, 6 OR MORE 10/28/2023 54565-JOQWPDH NAIL, 6 OR MORE 02/13/2024 64849-VCTUQTA NAIL, 6 OR MORE 04/20/2024 00717-HWJGEJJ NAIL, 6 OR MORE 07/02/2024 36512-TRPBXFH NAIL, 6 OR MORE 11/17/2018 64866-EDUKPAS NAIL, 6 OR MORE 01/19/2019 55458-XFPDAVA NAIL, 6 OR MORE 04/06/2019 97596-EJZUPWH NAIL, 6 OR MORE 08/10/2019 47746-IHPSDIN NAIL, 6 OR MORE 12/17/2019 99476-ACDMIPF NAIL, 6 OR MORE 02/22/2020 16957-ICRKCBH NAIL, 6 OR MORE 04/25/2020 83461-ZBVTDDJ NAIL, 6 OR MORE 07/25/2020 34236-EZOKEOJ NAIL, 6 OR MORE 09/29/2020 29756-PDOSGEN NAIL, 6 OR MORE 12/01/2020 24468-EUHULXR NAIL, 6 OR MORE 02/02/2021 35317-RRGZBLE NAIL, 6 OR MORE 05/08/2021 19874-SSIULXG NAIL, 6 OR MORE 07/24/2021 11283-QCDFCOY NAIL, 6 OR MORE 09/28/2021 63368-VVJTKDX NAIL, 6 OR MORE 12/11/2021 12147-OCEQCND NAIL, 6 OR MORE 02/22/2022 64176-YCZLBCK NAIL, 6 OR MORE 04/26/2022 58177-ZDCJWLK NAIL, 6 OR MORE 07/12/2022 33069-HSIGICN NAIL, 6 OR MORE 09/27/2022 20471-WFKJZXB NAIL, 6 OR MORE 06/06/2015 61526-WATQXLI NAIL, 6 OR MORE 09/19/2015 96998-MGVNXSE NAIL, 6 OR MORE 12/19/2015 95224-QNQWRFK NAIL, 6 OR MORE 03/22/2016 44374-KOHWDUM NAIL, 6 OR MORE 07/02/2016 35126-BVYGBOD NAIL, 6 OR MORE 10/04/2016 66095-IRLAADD NAIL, 6 OR MORE 01/14/2017 83509-ABBSPAE NAIL, 6 OR MORE 04/18/2017 04983-LQXUIBD NAIL, 6 OR MORE 07/18/2017 71957-KRPZMGO NAIL, 6 OR MORE 10/28/2017 50180-EGOSAHS NAIL, 6 OR MORE 01/13/2018 62632-VSZQVXH NAIL, 6 OR MORE 03/24/2018 52772-HWBDEMD NAIL, 6 OR MORE 05/29/2018 07750-VNFDDYG NAIL, 6 OR MORE 08/11/2018 77201-QAOYZVI NAIL, 6 OR MORE 12/10/2022 80540-NFSJCMZ NAIL, 6 OR MORE 02/21/2023 84609-NYVMDHI NAIL, 6 OR MORE 05/09/2023 97807-CYBOGAI NAIL, 6 OR MORE 07/22/2023 34394-ZLIY SKIN LESIONS, 2 TO 4 07/22/20 76589-IKPZ SKIN LESIONS, 2 TO 4 05/09/20 37451-UIKO SKIN LESIONS, 2 TO 4 02/22/20 41254-YUCC SKIN LESIONS, 2 TO 4 12/10/19 44871-PHLT SKIN LESIONS, 2 TO 4 09/27/20 69581-XQER SKIN LESIONS, 2 TO 4 07/02/20 24 16062-DPBM SKIN LESIONS, 2 TO 4 04/20/20 24 46092-PVFR SKIN LESIONS, 2 TO 4 02/13/20 24 97005-ULCV SKIN LESIONS, 2 TO 4 10/28/19 24 26464-LHUT SKIN LESIONS, 2 TO 4 01/12/20 25 38118-LXYJ SKIN LESIONS, 2 TO 4 10/08/20 Next Appt Details Provider Name:Mckinley Salgado , 04/04/2025 02:30:00 PM, [address] [facility] [address], [place], [address], Insurance Providers Payer Name Payer Address Payer Phone Subscriber Number Group Number Insured Name Patient Relationship to Insured Coverage Start Date Coverage End Date [employer] [place] Medicare Advantage [address] [place] [address] [id number] Brannon Canela Self - patient is the insured 4 Medical (General) History Medical History History ICD Code Cataracts Crohns disease Arthritis Cholesterol Hypertension Thyroid type II diabetes Surgical History Surgery Date(Month/Year) appendectomy 2010 eye surgery - eyelidectomy 2011 [place] cataract surgery 10/23/22,11/06/22
[2025-03-22 14:30] LABS: Alanine Aminotransferase 38 U/L (0-40); Aspartate Amino Transferase 36 U/L (5-37); Estimated Glomerular Filt Rate > 60
== END 2025-03-22 12:01 | disposition home or self-care (01) ==
LOC: HO.HMGCLDS 12:00
PROVIDERS: PCP Internal Medicine; Visit Provider Internal Medicine Rheumatology
DX: M17.0 Bilateral primary osteoarthritis of knee (principal); Z79.899 Other long term (current) drug therapy
CPT/HCPCS: 36415; 82565; 84450; 84460

== ENCOUNTER 2025-04-15 11:27 | Outpatient (REF) | payer OTHER, SELFPAY ==
--- OUTSIDE RECORDS SUMMARY | 2025-04-15 12:42 | XMS_ITS | Patient Health Record ---
Author Organization [facility] Gaby Harris Address [address] [facility] [place] [address] Care Team Providers Care Experimental Mechanic Electrical Name Role Phone Brannon Calvert Primary Care Provider Mckinley Sigala Unavailable [phone] Allergies Allergen (clinical drug ingredient) Drug/Non Drug Allergy documented on EMR Reaction Allergy Type Onset Date Status ibuprofen Advil colitis flareups Drug Allergy Active ibuprofen Ibuprofen Unknown Drug Allergy Active Results Component Value Reference Range Notes HEMOGLOBIN A1C (GLYCOHEMOGLO BIN) Reviewed date:01/11/2025 03:32:51 PM Interpretation: Performing Lab: Notes/Report: HEMOGLOBIN A1C % (HH) 6.0 HEMOGLOBIN A1C (GLYCOHEMOGLO BIN) Reviewed date:04/04/2025 01:44:15 PM Interpretation: Performing Lab: Notes/Report: HEMOGLOBIN A1C % (HH) 6.0 Reason For Referral No Information Medications Medication SIG (Take, Route, Frequency, Duration) Notes Start Date End Date Status Vitamin D 200 iu Act russel Zinc 5mg Active zzzCompression Stockings 20-30mm Hg . . .; Duration: . A ctive Extra Depth Orthopedic Shoes, (1) Pair With (3) Pair Custom Heat Molded Multidensity Innersoles Dx: NIDDM/PVD(E11.51), Hammertoe Foot Deformity(M20.41,M20 .42), Preulcerative Skin Lesion(s)(L85.1) Wear Daily; Duration: 365 days 04/20/2024 Active Tamsulosin HCl 0.4 MG 1 capsule 30 minut es after the same meal each day Orally Once a day; Duration: 30 day(s) 2 tab every fri/fri Active Vitamin C Active Allopurinol 100 MG 1 tablet Orally Once a day; Duration: 30 day(s) Active Atorvastatin Calcium 10 MG Orally Active Pioglitazone HCl 45 MG 1 tablet Orally O nce a day; Duration: 30 day(s) Not-Taking metFORMIN HCl 500 MG Orally 2 x a day Not-Taking Pentasa 500 MG 2 capsules Orally bid Not-Taking Latanoprost 0.005 % Ophthalmic Not-Taking Calcium 333mg Active Multi Vitamin Mens N ot-Taking Centrum Men Active Delzicol Not-Taking Ciclopirox Olamine 0.77 % 1 application to affected area Externally Twice a day; Duration: 30 days PRN Active Pravastatin Sodium 10 MG 1 tablet Orally Once a day Not-Taking DULoxetine HCl 30 MG 1 capsule Orally Once a day Active Levothyroxine Sodium 50 MCG Orally Not-Taking Lantus SoloStar Not- Taking aspirin baby Active Vitamin C Not-Taking Mesalamine Active Eye Drops Temp Active Lisinopril 20 MG 1 tablet Orally Once a day Active Levothyroxine Sodium .05mg 1tab Once a day Active Magnesium 133mg Acti ve Immunizations Vaccine Route Administration Date Status Comme [...] Problem Acquired hammer toe of right foot (3711809101587 105) Other hammer toe(s) (acquired), right foot (M20.41) Active confirmed Unchanged Problem Type 2 diabetes mellitus with peripheral angiopathy (962183567) Type 2 diabetes mellitus with diabetic peripheral angiopathy without gangrene (E11.51) Active confirmed Problem Acquired hammer toe of left foot (8943991760415 103) Other hammer toe(s) (acquired), left foot (M20.42) Active confirmed Unchanged Vital Signs Blood pressure diastolic 70 mm Hg 04/04/2025 Height 5 ft 9 in in 04/04/2025 Blood pressure systolic 130 mm Hg 04/04/2025 Weight 240 lbs 04/04/2025 BMI 35.44 kg/m2 04/04/2025 Procedures Procedure Date Ordered Date Performed Result Body Sit e 22563-IXMNHQW NAIL, 6 OR MORE 04/20/2024 N/A 46428-THZS SKIN LESIONS, 2 TO 4 04/20/2024 N/A 27426-DCMZVQU NAIL, 6 OR MORE 07/02/2024 N/A 18628-LJMD SKIN LESIONS, 2 TO 4 07/02/2024 N/A 23713-OIXGNOZ NAIL, 6 OR MORE 10/08/2024 N/A 80797-NHAQ SKIN LESIONS, 2 TO 4 10/08/2024 N/A 12366-GOUZIRZ NAIL, 6 OR MORE 01/11/2025 N/A 90277-LKWQ SKIN LESIONS, 2 TO 4 01/11/2025 N/A 34827-LRCOXAL NAIL, 6 OR MORE 04/04/2025 N/A 91803-YRCP SKIN LESIONS, 2 TO 4 04/04/2025 N/A Encounters Encounter Location Date Provider Diagnosis [address] [address] 04/20/2024 Mckinley Salgado Type 2 diabetes mellitus with diabetic peripheral angiopathy without gangrene E11.51 ; Onychomycosis B35.1 ; Pain of toe of right foot M79.674 ; Pain of toe of left foot M79.675 ; Other hammer toe(s) (acquired), right foot M20.41 and Other hammer toe(s) (acquired), left foot M20.[address] [address] 07/02/2024 Mckinley Salgado Type 2 diabetes mellitus with diabetic peripheral angiopathy without gangrene E11.51 ; Onychomycosis B35.1 ; Pain of toe of right foot M79.674 and Pain of toe of left foot M79.[address] [address] 10/08/2024 Mckinley Salgado Type 2 diabetes mellitus with diabetic peripheral angiopathy without gangrene E11.51 ; Onychomycosis B35.1 ; Pain of toe of right foot M79.674 and Pain of toe of left foot M79.[address] [address] 01/11/2025 Mckinley Salgado Type 2 diabetes mellitus with diabetic peripheral angiopathy without gangrene E11.51 ; Other hammer toe(s) (acquired), right foot M20.41 ; Onychomycosis B35.1 ; Pain of toe of right foot M79.674 ; Pain of toe of left foot M79.675 and Other hammer toe(s) (acquired), left foot M20.42 [facility] [address] [address] 04/04/2025 Mckinley Salgado Type 2 diabetes mellitus with diabetic peripheral angiopathy without gangrene E11.51 ; Onychomycosis B35.1 ; Pain of toe of right foot M79.674 and Pain of toe of left foot M79.[address] [address] 06/22/2024 Mckinley Salgado Assessments Encounter Date Diagnosis [...] peripheral angiopathy without gangrene (ICD-10 - E11.51) 04/04/2025 Type 2 diabetes mellitus with diabetic peripheral angiopathy without gangrene (ICD-10 - E11.51) 04/04/2025 Onychomycosis (ICD-10 - B35.1) 01/11/2025 Onychomycosis (ICD-10 - B35.1) 04/04/2025 Pain of toe of right foot (ICD-10 - M79.674) 07/02/2024 Pain of toe of right foot (ICD-10 - M79.674) 10/08/2024 Pain of toe of right foot (ICD-10 - M79.674) 04/20/2024 Pain of toe of right foot (ICD-10 - M79.674) 04/20/2024 Pain of toe of left foot (ICD-10 - M79.675) 07/02/2024 Pain of toe of left foot (ICD-10 - M79.675) 10/08/2024 Pain of toe of left foot (ICD-10 - M79.675) 04/04/2025 Pain of toe of left foot (ICD-10 [...] X ray : Foot, right 3V 10/27/2018 23543-OKTGRSG NAIL, 6 OR MORE 04/04/2025 30846-WJYYFYI NAIL, 6 OR MORE 10/08/2024 04799-JIJIJZU NAIL, 6 OR MORE 01/11/2025 57221-ASAEAZM NAIL, 6 OR MORE 10/28/2023 44672-PETXBPU NAIL, 6 OR MORE 02/13/2024 17463-BCWXSWJ NAIL, 6 OR MORE 04/20/2024 96929-ABWSIDN NAIL, 6 OR MORE 07/02/2024 17919-AYZDVAJ NAIL, 6 OR MORE 11/17/2018 90127-WZGZXQL NAIL, 6 OR MORE 01/19/2019 72634-EWQQNJM NAIL, 6 OR MORE 04/06/2019 78789-ODCZQOI NAIL, 6 OR MORE 08/10/2019 59414-GEBNQKW NAIL, 6 OR MORE 12/17/2019 25152-NKYXJNX NAIL, 6 OR MORE 02/22/2020 50896-OWGDRDA NAIL, 6 OR MORE 04/25/2020 80389-LLUQYIT NAIL, 6 OR MORE 07/25/2020 45494-JVJZZBY NAIL, 6 OR MORE 09/29/2020 11548-ASGKZFF NAIL, 6 OR MORE 12/01/2020 41590-WTSADXO NAIL, 6 OR MORE 02/02/2021 65060-UVDHHZQ NAIL, 6 OR MORE 05/08/2021 27251-NTWLSEQ NAIL, 6 OR MORE 07/24/2021 08560-BNHLMTM NAIL, 6 OR MORE 09/28/2021 48278-NZHBEOV NAIL, 6 OR MORE 12/11/2021 58271-OPUEPMV NAIL, 6 OR MORE 02/22/2022 64498-XHVJUXF NAIL, 6 OR MORE 04/26/2022 18410-SFXFMFE NAIL, 6 OR MORE 07/12/2022 74527-WILQINZ NAIL, 6 OR MORE 09/27/2022 08137-CHMJRSB NAIL, 6 OR MORE 06/06/2015 07789-VDFJAQJ NAIL, 6 OR MORE 09/19/2015 25645-PLWBPTH NAIL, 6 OR MORE 12/19/2015 00938-NRMFBGU NAIL, 6 OR MORE 03/22/2016 97375-KMNTPVA NAIL, 6 OR MORE 07/02/2016 99829-ZWFMUMS NAIL, 6 OR MORE 10/04/2016 52303-JDWAZMG NAIL, 6 OR MORE 01/14/2017 70695-GXHFOEY NAIL, 6 OR MORE 04/18/2017 66781-SSFUMNU NAIL, 6 OR MORE 07/18/2017 72766-RJUWARU NAIL, 6 OR MORE 10/28/2017 84919-ETRIHSK NAIL, 6 OR MORE 01/13/2018 19749-CAKHYVO NAIL, 6 OR MORE 03/24/2018 83202-OZCSZYP NAIL, 6 OR MORE 05/29/2018 29252-EVZPEJN NAIL, 6 OR MORE 08/11/2018 00082-FEACXPC NAIL, 6 OR MORE 12/10/2022 81286-NIJVFBN NAIL, 6 OR MORE 02/21/2023 17664-OJEHCEW NAIL, 6 OR MORE 05/09/2023 46865-JICVHPH NAIL, 6 OR MORE 07/22/2023 12538-NJIE SKIN LESIONS, 2 TO 4 07/22/20 23 38336-BBNA SKIN LESIONS, 2 TO 4 05/09/20 23 64864-GOWI SKIN LESIONS, 2 TO 4 02/22/20 23 73776-YZBP SKIN LESIONS, 2 TO 4 12/10/19 23 79061-GKEZ SKIN LESIONS, 2 TO 4 09/27/20 22 77287-ZIAZ SKIN LESIONS, 2 TO 4 07/02/20 24 12846-MJDI SKIN LESIONS, 2 TO 4 04/20/20 24 39668-ZUAE SKIN LESIONS, 2 TO 4 02/13/20 24 31489-BSHU SKIN LESIONS, 2 TO 4 10/28/19 24 45777-GWAJ SKIN LESIONS, 2 TO 4 01/12/20 25 92954-IHMT SKIN LESIONS, 2 TO 4 10/08/20 24 16013-SJVM SKIN LESIONS, 2 TO 4 04/04/20 25 Insurance Providers Payer Name Payer Address Payer Phone Subscriber Number Group Number Insured Name Patient Relationship to Insured Coverage Start Date Coverage End Date [employer] [place] Medicare Advantage [address] [place] [address] [id number] Brannon Canela Self - patient is the insured 4 Medical (General) History Medical History History ICD Code Cataracts Crohns disease Arthritis Cholesterol Hypertension Thyroid type II diabetes Surgical History Surgery Date(Month/Year) appendectomy 2009 eye surgery - eyelidectomy 2010 [place] cataract surgery 10/23/22,11/06/22
[2025-04-15 13:12] LABS: Hematocrit 40.6 % (42.0-52.0); Mean Corpuscular HGB Conc 34.5 g/dl (31.0-36.0); Mean Corpuscular Hemoglobin 35.1 pg (27.0-33.0); Mean Corpuscular Volume 101.8 fL (80.0-98.0); Mean Platelet Volume 10.5 fL (9.4-12.4); Platelet Count 167 X10*3/uL (160-400); Red Blood Count 3.99 X10*6/uL (4.60-5.80); White Blood Count 5.9 X10*3/uL (4.8-10.8)
[2025-04-15 13:25] LABS: Anion Gap 12 (12-20); Blood Urea Nitrogen 16 mg/dL (9-16); Calcium 9.3 mg/dL (8.4-10.2); Carbon Dioxide 24 mmol/L (22-29); Chloride 106 mmol/L (96-108); Cholesterol 128 mg/dL (<200); Estimated Glomerular Filt Rate > 60; Glucose Random 165 mg/dL (60-115); HDL Cholesterol 40 mg/dL (>40); LDL Cholesterol Calculated 69 mg/dL (<100); Potassium 4.7 mmol/L (3.3-5.1); Sodium 137 mmol/L (135-145); Triglycerides 99 mg/dL (<150)
[2025-04-15 13:30] LABS: Estimated Average Glucose 154 mg/dL; Total Hemoglobin (HGBA1C) 3617.0002 umol/L
[2025-04-15 13:37] LABS: Creatinine Urine 122.23 mg/dL; Microalbum/Creatinine Ratio Ur 45.8 ug/mg cr (<30)
== END 2025-04-15 11:28 | disposition home or self-care (01) ==
LOC: HO.HMGCLDS 11:27
PROVIDERS: PCP Internal Medicine; Visit Provider Internal Medicine
DX: I10 Essential (primary) hypertension (principal); E11.9 Type 2 diabetes mellitus without complications
CPT/HCPCS: 36415; 80048; 80061; 82043; 82570; 83036; 85027

== ENCOUNTER 2025-05-26 08:57 | Outpatient (AMB) | payer OTHER, SELFPAY ==
--- OUTSIDE RECORDS SUMMARY | 2025-04-29 07:30 | XMS_ITS | Encounter Summary ---
Author Name [facility] Organization [facility] [place] Address [address] [place] [address] Care Team Providers Care Water Main Pipe Layer Name Role Phone CAITLIN NICHOLAS Primary Care Provider Unavailabl e Insurance Providers: All historical and current Section [...] [place] M[place] ([place] MEDICARE ADVANTAGE MCR ([facility]) Aug 20, 2014 [id number] PATIENT HEALTH [place] M[place] (WNR) MEDICARE ADVANTAGE MCR ([facility] Aug 20, 2014 [id number] PATIENT HEALTH [place] MCR (WNR) MEDICARE ADVANTAGE MCR ([facility] Aug 20, 2014 [id number] [phone] PATIENT Selected Encounter This section includes the information on record at [place] for the Encounter. Date/Time Encounter Type Encounter Description Reason Provider Source Apr 29, 2025 11:30 AM HEARING AID REPAIR/MODIFYING AUDIOLOGY ICD-10-CM Z46.1 Encounter for fitting and adjustment of hearing aid PATRICK CRISTINA Encounter Template Text not used by [place] Assessments - Encounter Diagnoses This section includes the primary and secondary diagnoses documented for the Encounter. Date/Time Primary/Secondary Diagnosis Diagnosis Name Provider Source Apr 29, 2025 11:45 AM PRIMARY Encounter for fitting and adjustment of hearing aid SELENE ZUÑIGA Apr 29, 2025 11:45 AM SECONDARY Sensorineural hearing loss, bilateral SELENE ZUÑIGA Plan of Treatment: Future Appointments (+ 6 months) and Future Tests (+/- 45 days) The Plan of Treatment section includes future care activities for the patient [facility] [place] [facility] This section includes future appointments and future orders which are active, pending or scheduled. Future Appointments This section includes appointments that were scheduled to occur 6 months from the date of the Encounter, up to a maximum of 20 appointments. The data comes from all [place] treatment facilities. Appointment Date/Time Appointment Type Appointme nt Facility Name Jun 08, 2025 09:00 AM AMBULATORY - MEDICINE [facility] Aug 26, 2025 01:00 PM [facility] Active, Pending, and Scheduled Orders This section includes a listing of several types of active, pending, and scheduled orders, including clinic medications orders, diagnostic test orders, procedure orders and consult orders; where the start date of the order is 45 days before the date of the Encounter or 45 days after the date of theEncounter. The data comes from all [facility]. Test Date/Time Test Type Test Details Facility Name May 25, 2025 12:00 AM Laboratory - Chemistry Order BASIC METABOLIC PANEL (non-fasting) BLOOD (SST-SERUM) [facility] May 25, 2025 12:00 AM Laboratory - Chemistry Order LIVER FUNCTION BLOOD (SST-SERUM) [facility] May 25, 2025 12:00 AM Laboratory - Chemistry Order CBC AND DIFF (AUTO) BLOOD (LAV-BLOOD) [facility] May 25, 2025 12:00 AM Laboratory - Chemistry Order LIPID PANEL, NON FASTING BLOOD (SST-SERUM) [facility] May 25, 2025 12:00 AM Laboratory - Chemistry Order HEMOGLOBIN A1C PANEL BLOOD (LAV-BLOOD) [facility] May 25, 2025 12:00 AM Laboratory - Chemistry Order TSH BLOOD (SST-SERUM) [facility] May 25, 2025 12:00 AM Laboratory - Chemistry Order MICROALBUMIN CREATININE RATIO PANEL URINE (RANDOM) [facility] May 25, 2025 12:00 AM Laboratory - Chemistry Order OCCULT BLOOD FIT X1 SCREEN(IN-HOUSE) STOOL FECES [facility] Social History: Smoking Status (Most current) and Tobacco Use (All prior to encounter date) This section includes the most current, and the historical, smoking and tobacco- related health factors from the [place] facility where the Encounter took place. Current Smoking Status This section includes the most current smoking, or tobacco-related health factor, from the [place] facility where the Encounter took place. Date/Time Current Smoking Status Comment Facil ity Jun 09, 2024 09:00 AM VA-TOBACCO FORMER USER [facility] Tobacco Use History This section includes a history of the smoking, or tobacco-related health factors, that were collected on or before the date of the Encounter. The data comes from the [place] facility where the Encounter took place. Date/Time Smoking Status/Tobacco Use Comment F acility Jun 09, 2024 09:00 AM VA-TOBACCO QUIT 15 YRS OR MORE [facility] Jun 10, 2023 09:00 AM VA-TOBACCO FORMER USER [facility] Jun 10, 2023 09:00 AM VA-TOBACCO QUIT 15 YRS OR MORE [facility] Jun 10, 2022 10:00 AM VA-TOBACCO FORMER USER [facility] Jun 10, 2022 10:00 AM VA-TOBACCO QUIT 15 YRS OR MORE [facility] Jun 14, 2020 09:00 AM VA-TOBACCO FORMER USER [facility] Jun 14, 2020 09:00 AM VA-TOBACCO QUIT 15 YRS OR MORE [facility] Dec 25, 2018 12:05 PM VA-TOBACCO FORMER USER [facility] Dec 25, 2018 12:05 PM VA-TOBACCO QUIT 15 YRS OR MORE [facility] Apr 28, 2018 09:05 AM QUIT TOBACCO USE > 7 YEARS AGO [facility] Dec 11, 2015 03:14 PM QUIT TOBACCO USE > 7 YEARS AGO [facility] May 01, 2010 01:18 PM QUIT TOBACCO USE > 7 YEARS AGO stopped tobacco 1998 [facility] Advance Directives: All historical and current Section Date Range: From patient's date of to the date document was created. This section includes ALL of a patient's completed or amended [place] Advance and Rescinded Directives. The entries below indicate that a directive exists for the patient, but an actual copy is not included with this document. The data comes from all [place] facilities. Date Advance Directives Provider Source Jul 09, 2010 ADVANCE DIRECTIVE [facility] Encounter Notes: All associated encounter notes This section contains the clinical notes associated to the Encounter. Date/Time Encounter Note(s) Provider Source Apr 29, 2025 07:57 AM AUDIOLOGY NOTE: LOCAL TITLE: AUDIOLOGY HEALTH DIGITAL OPERATIONS ANALYST STANDARD TITLE: AUDIOLOGY NOTE DATE OF NOTE: APR 29, 2025@07:57 ENTRY DATE: APR 29, 2025@07:57:51 AUTHOR: SELENE ZUÑIGA COSIGNER: PATRICK CRISTINA URGENCY: STATUS: COMPLETED April 29, 2025 History/Background: was seen for a hearing aid follow up at the [facility], unaccompanied. The [place] presented today to knot picker cloth his new right earmold. Hearing aids: [email or web address] Serial Numbers: [id number] Battery size: 13 Date Issued: 01/01/2023 Hearing aid check: The right hearing aid was cleaned and checked. Removed the current silicone earmold, attached a 13 TRS tube and tonehook and coupled to the hearing aid. The fit appeared excellent and the [place] agreed. The sound check however, was weak. Suctioned the microphones and replaced kale covers, no improvement. The right hearing aid will be sent to the revenue stamp cutter for repair and will ship directly to the [place] via [facility]. The right tube/earmold was removed and placed in a plastic bag marked NEW , the will attach the earmold to the hearing aid once it's back from repair. Plan: The [place] will follow up as needed. /rodolfo/ SELENE ZUÑIGA Audiology Health Lacquer Polisher Signed: 04/29/2025 11:47 /rodolfo/ PATRICK Ramesh, [facility]-A CHIEF, AUDIOLOGY/LINING STRAP CLOSER Cosigned: 04/29/2025 14:44 SELENE ZUÑIGA [facility]
--- NOTE | 2025-05-26 08:58 | MHC.OFFVIS ---
Vital Signs 05/26/25 09:01 Height 5 ft 9 in Weight 246 lb 4.101 oz BMI 36.4 BP 110/62 Blood Pressure Location Lt brachial Position Sitting Pulse 64 Pulse Source Pulse Oximeter Pulse Oximetry (%) 97 Oxygen Delivery Method Room Air Intake Visit Reasons: 3 Months Intake Note: Patient presents follow up on arthritis today. Accompanied by: Self / Same As Patient Allergies NSAIDS (Non-Steroidal Anti-Inflamma Adverse Reaction (Unknown, Verified 05/26/25 09:00) rectal bleeding HPI HPI 3 Months: Details: He is sleeping better from 5h to 8h at night. Pain is controlled until 1-2pm. Pain is better controlled overall throughout the day and he is able to move better. He takes duloxetine 30mg daily. Pain is more tolerable. His was concerned that he was losing memory but it is just forgetfulness such as forgetting to bring catch up from the basement upstairs before dinner on 1 occasion. Patient does not believe he is losing any memory because of the medication. Physical Exam Vital Signs: Last Vital Signs Pulse 64 05/26/25 09:01 BP 110/62 05/26/25 09:01 Pulse Ox 97 05/26/25 09:01 Oxygen Delivery Method Room Air 05/26/25 09:01 BMI result Body Mass Index 36.4 Const Other: General: Comfortable Skin: No lesions seen MSK: No tender joint. Mild effusion right knee present without warmth. Knee flexion right 100 degrees, left 120 degrees. Assessment & Plan Assessment & Plan (1) Osteoarthritis of right knee: Comment: Improved pain and function with duloxetine. Rheumatology history: Failed cortisone injection (b/l 09/2024), R 12/2024) and Euflexxa R 01/2025-02/2025. Duloxetine 03/2025- Code(s): M17.11 - Unilateral primary osteoarthritis, right knee Category: Medical Qualifiers: Osteoarthritis type: primary Qualified Code(s): M17.11 - Unilateral primary osteoarthritis, right knee Plan: Increase duloxetine 60 mg daily I will order creatinine next visit for drug monitoring Return to clinic in 3 months Medications: Changed From duloxetine 30 mg PO DAILY 60 caps 0RF To duloxetine Take 2 tablets daily. Patient prefers two 30mg tablets over one 60mg tablet. 60 mg (2 x 30 mg) PO DAILY 120 caps 5RF Coding Level of Care Code Est Pt Level 3 (88463) Complex EM visit Add On G2211 Diagnoses Primary osteoarthritis of right knee M17.11 Osteoarthritis type: primary
[2025-05-26 09:01] VITALS: BP 110/62; PULSE 64; O2SAT 97; BMI 36.4
--- OUTSIDE RECORDS SUMMARY | 2025-05-26 09:17 | XMS_ITS | Patient Health Record ---
Author Organization [facility] Gaby Harris Address [address] [facility] [place] [address] Care Team Providers Care Senior Marketing Manager Name Role Phone Brannon Calvert Primary Care Provider Mckinley Sigala Unavailable [phone] Allergies Allergen (clinical drug ingredient) Drug/Non Drug [...] Vaccine Route Administration Date Status Comme nts Influenza Unknown 10/27/2018 Refused Influenza Unknown 07/10/2022 Administered COVID-19 Pfizer BioNTech Vaccine Unknown 06/22/2022 Administered 1st 12/06/2020 2nd 12/20/2020 3rd 09/07/2021 Social History Tobacco Use: Social History Observation [...] Problem Acquired hammer toe of right foot (1749084373460 105) Other hammer toe(s) (acquired), right foot (M20.41) Active confirmed Unchanged Problem Type 2 diabetes mellitus with peripheral angiopathy (708157112) Type 2 diabetes mellitus with diabetic peripheral angiopathy without gangrene (E11.51) Active confirmed Problem Acquired hammer toe of left foot (9299372059518 103) Other hammer toe(s) (acquired), left foot (M20.42) Active confirmed Unchanged Vital Signs Blood pressure diastolic 70 mm Hg 04/04/2025 Height 5 ft 9 in in 04/04/2025 Blood pressure systolic 130 mm Hg 04/04/2025 Weight 240 lbs 04/04/2025 BMI 35.44 kg/m2 04/04/2025 Procedures Procedure Date Ordered Date Performed Result Body Sit e 39944-DIVUVYX NAIL, 6 OR MORE 07/02/2024 N/A 04815-TSWE SKIN LESIONS, 2 TO 4 07/02/2024 N/A 18876-ZWQKQUM NAIL, 6 OR MORE 10/08/2024 N/A 99833-IKMG SKIN LESIONS, 2 TO 4 10/08/2024 N/A 42014-ZODRVQZ NAIL, 6 OR MORE 01/11/2025 N/A 78220-XWOA SKIN LESIONS, 2 TO 4 01/11/2025 N/A 69508-RSKLAKX NAIL, 6 OR MORE 04/04/2025 N/A 16676-CQQC SKIN LESIONS, 2 TO 4 04/04/2025 N/A Encounters Encounter Location Date Provider Diagnosis [address] [address] 07/02/2024 Mckinley Naomi Type 2 diabetes mellitus with diabetic peripheral angiopathy without gangrene E11.51 ; Onychomycosis B35.1 ; Pain of toe of right foot M79.674 and Pain of toe of left foot M79.[address] [address] [address] 10/08/2024 Mckinley Naomi Type 2 diabetes mellitus with diabetic peripheral angiopathy without gangrene E11.51 ; Onychomycosis B35.1 ; Pain of toe of right foot M79.674 and Pain of toe of left foot M79.[address] [address] 01/11/2025 Mckinley Naomi Type 2 diabetes mellitus with diabetic peripheral angiopathy without gangrene E11.51 ; Other hammer toe(s) (acquired), right foot M20.41 ; Onychomycosis B35.1 ; Pain of toe of right foot M79.674 ; Pain of toe of left foot M79.675 and Other hammer toe(s) (acquired), left foot M20.42 [facility] [address] [facility] [address] [place] [address] 04/04/2025 Mckinley Salgado Type 2 diabetes mellitus with diabetic peripheral angiopathy without gangrene E11.51 ; Onychomycosis B35.1 ; Pain of toe of right foot M79.674 and Pain of toe of left foot M79.675 [facility] [place] [address] [place] [address] 06/22/2024 Mckinley Salgado Assessments Encounter Date Diagnosis [...] X ray : Foot, right 3V 10/27/2018 01448-BKQHHTE NAIL, 6 OR MORE 04/04/2025 21196-ZDELZQQ NAIL, 6 OR MORE 10/08/2024 20560-GUNFDJJ NAIL, 6 OR MORE 01/11/2025 21045-SUFUZEU NAIL, 6 OR MORE 10/28/2023 37401-PGYRRXR NAIL, 6 OR MORE 02/13/2024 56476-FWFKNDY NAIL, 6 OR MORE 04/20/2024 23438-VZPBFHT NAIL, 6 OR MORE 07/02/2024 85608-PJQMTCE NAIL, 6 OR MORE 11/17/2018 34607-ANOJKVH NAIL, 6 OR MORE 01/19/2019 15129-RLJPQJY NAIL, 6 OR MORE 04/06/2019 65966-NTUIDNY NAIL, 6 OR MORE 08/10/2019 91590-SDMFJCN NAIL, 6 OR MORE 12/17/2019 72304-SWMGYKP NAIL, 6 OR MORE 02/22/2020 21046-FQFURST NAIL, 6 OR MORE 04/25/2020 22935-IOAZKFX NAIL, 6 OR MORE 07/25/2020 80476-SABBWUY NAIL, 6 OR MORE 09/29/2020 04856-JVUTABG NAIL, 6 OR MORE 12/01/2020 28539-ZHDJYFU NAIL, 6 OR MORE 02/02/2021 36919-HUHZSQZ NAIL, 6 OR MORE 05/08/2021 46226-XGMKFPG NAIL, 6 OR MORE 07/24/2021 00618-JMNYRFO NAIL, 6 OR MORE 09/28/2021 45202-IGRWZND NAIL, 6 OR MORE 12/11/2021 38766-SWNCTAT NAIL, 6 OR MORE 02/22/2022 21816-VIWFXRC NAIL, 6 OR MORE 04/26/2022 54653-SSLGJFT NAIL, 6 OR MORE 07/12/2022 44619-XAYBKYJ NAIL, 6 OR MORE 09/27/2022 74410-VUGHQUB NAIL, 6 OR MORE 06/06/2015 70336-YQUOZQC NAIL, 6 OR MORE 09/19/2015 47959-ZNUVLAH NAIL, 6 OR MORE 12/19/2015 96450-SQUSHHG NAIL, 6 OR MORE 03/22/2016 66828-LQLSSWY NAIL, 6 OR MORE 07/02/2016 52166-YTYOYKA NAIL, 6 OR MORE 10/04/2016 23750-XCTDZPJ NAIL, 6 OR MORE 01/14/2017 24879-OAZNSWA NAIL, 6 OR MORE 04/18/2017 55882-RVODWEL NAIL, 6 OR MORE 07/18/2017 44848-MNQVUWG NAIL, 6 OR MORE 10/28/2017 10218-WCLVMQL NAIL, 6 OR MORE 01/13/2018 98594-VEUZAES NAIL, 6 OR MORE 03/24/2018 05450-YEFHZLA NAIL, 6 OR MORE 05/29/2018 88495-WJJTAZQ NAIL, 6 OR MORE 08/11/2018 63272-DNQYRHA NAIL, 6 OR MORE 12/10/2022 59563-ONFNNJK NAIL, 6 OR MORE 02/21/2023 78948-SOFCLXF NAIL, 6 OR MORE 05/09/2023 90761-PTEYRGM NAIL, 6 OR MORE 07/22/2023 49906-GBBD SKIN LESIONS, 2 TO 4 07/22/20 10967-ISLA SKIN LESIONS, 2 TO 4 05/09/20 01538-BTSQ SKIN LESIONS, 2 TO 4 02/22/20 62721-YFQV SKIN LESIONS, 2 TO 4 12/10/19 23 58945-UGHR SKIN LESIONS, 2 TO 4 09/27/20 41550-HXHO SKIN LESIONS, 2 TO 4 07/02/20 24 77443-XXWI SKIN LESIONS, 2 TO 4 04/20/20 24 89971-JZKC SKIN LESIONS, 2 TO 4 02/13/20 24 12529-XYKP SKIN LESIONS, 2 TO 4 10/28/19 24 84776-GWFQ SKIN LESIONS, 2 TO 4 01/12/20 25 74995-AIWU SKIN LESIONS, 2 TO 4 10/08/20 24 30736-TVUJ SKIN LESIONS, 2 TO 4 04/04/20 25 Insurance Providers Payer Name Payer Address Payer Phone Subscriber Number Group Number Insured Name Patient Relationship to Insured Coverage Start Date Coverage End Date [employer]vantage [address] [place] [address] [phone] [id number] Brannon Canela Self - patient is the insured 4 Medical (General) History Medical History History ICD Code Cataracts Crohns disease Arthritis Cholesterol Hypertension Thyroid type II diabetes Surgical History Surgery Date(Month/Year) appendectomy 2009 eye surgery - eyelidectomy 2010 [place] cataract surgery 10/23/22,11/06/22
== END 2025-05-26 09:43 | disposition home or self-care (01) ==
LOC: HO.RHES 08:57
PROVIDERS: PCP Internal Medicine; Visit Provider Internal Medicine Rheumatology
DX: M17.11 Unilateral primary osteoarthritis, right knee (principal)
CPT/HCPCS: 99213; G2211

== ENCOUNTER 2025-08-31 08:18 | Outpatient (AMB) | payer OTHER, SELFPAY ==
--- OUTSIDE RECORDS SUMMARY | 2024-06-22 05:00 | XMS_ITS ---
Author Organization [facility] Address [address] [place] [address] Care Team Providers Care Building Services Engineer Name Role Phone Brannon Calvert Primary Care Provider UnavailMckinley Burgess Unavailable [phone] Encounters Encounter Location Date Provider Diagnosis [address] [address] 06/22/2024 Mckinley Salgado Plan Of Treatment Next Appt Details Provider Name:Mckinley Salgado , 09/30/2025 09:00:00 AM, [address] [place] [address], [phone], Progress Notes * Brannon CANELADOB:1945 (79 yo M)Acc No.[id number]:06/22/2024 Progress Note Patient: Sang NUNO Edbarbara Tanvi Provider: Jose Salgado DPM :1945 A ge:78 Y S ex:Male Date:06/22/2024 Address:[id number] Pcp:Brannon Calvert Subjective: * Chief Complaints: * * Medical History: Objective: * Vitals: Assessment: Plan: * Treatment: * Images: * The named appointment provid er may or may not be the originator of this progress note, and it is not deemed complete until electronically signed by the appointment provider. Sign off status: Pending * Provider: Jose Salgado DPM Date: 0 06/22/2024 Generated for Amna arias/Seth on: 1 10/31/2024 08:26 AM EST
--- OUTSIDE RECORDS SUMMARY | 2025-08-31 08:26 | XMS_ITS | Patient Health Record ---
Author Organization [facility] Gaby Harris Address [address] [facility] [place] [address] Care Team Providers Care Quilter Fixer Name Role Phone Brannon Calvert Primary Care Provider Mckinley Sigala Unavailable [phone] Allergies Allergen (clinical drug ingredient) Drug/Non Drug [...] Duration) Notes Start Date End Date Status Extra Depth Orthopedic Shoes, (1) Pair With (3) Pair Custom Heat Molded Multidensity Innersoles Dx: NIDDM/PVD(E11.51), Hammertoe Foot Deformity(M20.41,M20 .42), Preulcerative Skin Lesion(s)(L85.1) Wear Daily; Duration: 365 days 04/20/2024 Active zzzCompression Stockings 20-30mm Hg . . .; Duration: . A ctive Zinc 5mg Active Vitamin D 200 iu Act russel Vitamin C Active aspirin baby Active Atorvastatin Calcium 10 MG Orally Active Allopurinol 100 MG 1 tablet Orally Once a day; Duration: 30 day(s) Active Levothyroxine Sodium 50 MCG Orally Not-Taking Latanoprost 0.005 % Ophthalmic Not-Taking Pentasa 500 MG 2 capsules Orally bid Not-Taking metFORMIN HCl 500 MG Orally 2 x a day Not-Taking Pioglitazone HCl 45 MG 1 tablet Orally O nce a day; Duration: 30 day(s) Not-Taking DULoxetine HCl 30 MG 1 capsule Orally Once a day Active Ciclopirox Olamine 0.77 % 1 application to affected area Externally Twice a day; Duration: 30 days PRN Active Pravastatin Sodium 10 MG 1 tablet Orally Once a day Not-Taking Centrum Men Active Delzicol Not-Taking Calcium 333mg Active Multi Vitamin Mens N ot-Taking Vitamin C Not-Taking Lantus SoloStar Not- Taking Tamsulosin HCl 0.4 MG 1 capsule 30 minut es after the same meal each day Orally Once a day; Duration: 30 day(s) 2 tab every fri/wed Active Mesalamine Active Magnesium 133mg Acti ve Levothyroxine Sodium .05mg 1tab Once a day Active Lisinopril 20 MG 1 tablet Orally Once a day Active Eye Drops Temp Active Immunizations Vaccine Route Administration Date Status Comme nts Influenza Unknown 10/27/2018 Refused Influenza Unknown 07/10/2022 Administered Influenza Unknown 06/20/2024 Administered COVID-19 Pfizer BioNTech Vaccine Unknown 06/22/2022 [...] Problem Acquired hammer toe of right foot (6874308476106 105) Other hammer toe(s) (acquired), right foot (M20.41) Active confirmed Unchanged Problem Type 2 diabetes mellitus with peripheral angiopathy (819491502) Type 2 diabetes mellitus with diabetic peripheral angiopathy without gangrene (E11.51) Active confirmed Problem Acquired hammer toe of left foot (9496521845468 103) Other hammer toe(s) (acquired), left foot (M20.42) Active confirmed Unchanged Vital Signs Blood pressure diastolic 70 mm Hg 06/17/2025 Height 5 ft 9 in in 06/17/2025 Blood pressure systolic 128 mm Hg 06/17/2025 Weight 243 lbs 06/17/2025 BMI 35.88 kg/m2 06/17/2025 Procedures Procedure Date Ordered Date Performed Result Body Sit e 26263-CFZDLIZ NAIL, 6 OR MORE 10/08/2024 N/A 61621-WOPI SKIN LESIONS, 2 TO 4 10/08/2024 N/A 19322-TXQYQXL NAIL, 6 OR MORE 01/11/2025 N/A 44852-GYWP SKIN LESIONS, 2 TO 4 01/11/2025 N/A 08926-YEUSXUQ NAIL, 6 OR MORE 04/04/2025 N/A 55543-YFEZ SKIN LESIONS, 2 TO 4 04/04/2025 N/A 72378-ZMEKXHF NAIL, 6 OR MORE 06/17/2025 N/A 83412-NDNO SKIN LESIONS, 2 TO 4 06/17/2025 N/A Encounters Encounter Location Date Provider Diagnosis [facility] [address] [address] 10/08/2024 Mckinley Salgado Type 2 diabetes mellitus with diabetic peripheral angiopathy without gangrene E11.51 ; Onychomycosis B35.1 ; Pain of toe of right foot M79.674 and Pain of toe of left foot M79.675 [facility] [address] [address] 01/11/2025 Mckinleyansley Salgado Type 2 diabetes mellitus with diabetic peripheral angiopathy without gangrene E11.51 ; Other hammer toe(s) (acquired), right foot M20.41 ; Onychomycosis B35.1 ; Pain of toe of right foot M79.674 ; Pain of toe of left foot M79.675 and Other hammer toe(s) (acquired), left foot M20.42 [facility] [address] [address] 04/04/2025 Mckinley Salgado Type 2 diabetes mellitus with diabetic peripheral angiopathy without gangrene E11.51 ; Onychomycosis B35.1 ; Pain of toe of right foot M79.674 and Pain of toe of left foot M79.675 [facility] [address] [address] 06/17/2025 Mckinley Salgado Type 2 diabetes mellitus with [...] - E11.51) 04/04/2025 Onychomycosis (ICD-10 - B35.1) 06/17/2025 Type 2 diabetes mellitus with diabetic peripheral angiopathy without gangrene (ICD-10 - E11.51) 06/17/2025 Onychomycosis (ICD-10 - B35.1) 06/17/2025 Pain of toe of right foot (ICD-10 - M79.674) 01/11/2025 Onychomycosis (ICD-10 - B35.1) 04/04/2025 Pain of toe of right foot (ICD-10 - M79.674) 10/08/2024 Pain of toe of right foot (ICD-10 - M79.674) 10/08/2024 Pain of toe of left foot (ICD-10 - M79.675) 06/17/2025 Pain of toe of left foot (ICD-10 - M79.675) 04/04/2025 Pain of toe of left foot (ICD-10 - M79.675) 01/11/2025 Pain of toe of right foot (ICD-10 - M79.674) 01/11/2025 Pain of toe of left foot (ICD-10 - M79.675) 01/11/2025 Other hammer toe(s) (acquired), left foot (ICD-10 - M20.42) 10/08/2024 Other Plan Of Treatment Pending Test Test Name Order Date X ray : Foot, left 3V 10/27/2018 X ray : Foot, right 3V 10/27/2018 04082-LTEDZXP NAIL, 6 OR MORE 10/28/2023 83288-MJBJEOB NAIL, 6 OR MORE 02/13/2024 69590-JGHQTRE NAIL, 6 OR MORE 04/20/2024 92505-BWXMVYF NAIL, 6 OR MORE 07/02/2024 91148-TORXIRT NAIL, 6 OR MORE 10/08/2024 99207-IJGIZAW NAIL, 6 OR MORE 01/11/2025 13834-ATOOINU NAIL, 6 OR MORE 04/04/2025 18372-XOJNTVA NAIL, 6 OR MORE 06/17/2025 42410-SKIGNJG NAIL, 6 OR MORE 11/17/2018 08692-GWYIGSO NAIL, 6 OR MORE 01/19/2019 88326-HTJYCGJ NAIL, 6 OR MORE 04/06/2019 97118-IJVGOCO NAIL, 6 OR MORE 08/10/2019 55856-MQYMJTA NAIL, 6 OR MORE 12/17/2019 71930-VLWEWSG NAIL, 6 OR MORE 02/22/2020 62563-TGAODLA NAIL, 6 OR MORE 04/25/2020 81021-LWFEIRN NAIL, 6 OR MORE 07/25/2020 18511-MTCECYB NAIL, 6 OR MORE 09/29/2020 02504-FCOWHYB NAIL, 6 OR MORE 12/01/2020 41302-RVHLXEX NAIL, 6 OR MORE 02/02/2021 53682-SEIRXCN NAIL, 6 OR MORE 05/08/2021 57285-AUPLZYB NAIL, 6 OR MORE 07/24/2021 30476-IMROIXS NAIL, 6 OR MORE 09/28/2021 35818-BKHQTUJ NAIL, 6 OR MORE 12/11/2021 34775-PJGQVJI NAIL, 6 OR MORE 02/22/2022 16914-YWTQUKH NAIL, 6 OR MORE 04/26/2022 74914-YNKMDJM NAIL, 6 OR MORE 07/12/2022 76071-FQHBZQE NAIL, 6 OR MORE 09/27/2022 06592-HOCTIVU NAIL, 6 OR MORE 06/06/2015 34381-BYMJWRI NAIL, 6 OR MORE 09/19/2015 11807-DETANPM NAIL, 6 OR MORE 12/19/2015 28785-JEXFQPL NAIL, 6 OR MORE 03/22/2016 92569-JSTOVQO NAIL, 6 OR MORE 07/02/2016 55776-JWLBBOW NAIL, 6 OR MORE 10/04/2016 12892-EDBRMKW NAIL, 6 OR MORE 01/14/2017 91356-SMGLHZF NAIL, 6 OR MORE 04/18/2017 29148-BBWSUWK NAIL, 6 OR MORE 07/18/2017 20941-VFBYIKP NAIL, 6 OR MORE 10/28/2017 59075-TZTEHTZ NAIL, 6 OR MORE 01/13/2018 77002-LQOHRLL NAIL, 6 OR MORE 03/24/2018 00311-ASKZYKF NAIL, 6 OR MORE 05/29/2018 07711-NOUNOCU NAIL, 6 OR MORE 08/11/2018 91776-VGLLKVD NAIL, 6 OR MORE 12/10/2022 36028-WFGHMNU NAIL, 6 OR MORE 02/21/2023 57376-ONUJKTK NAIL, 6 OR MORE 05/09/2023 21010-KSOTOQX NAIL, 6 OR MORE 07/22/2023 35339-MIXA SKIN LESIONS, 2 TO 4 07/22/20 18312-IHJZ SKIN LESIONS, 2 TO 4 05/09/20 74420-ZPCK SKIN LESIONS, 2 TO 4 02/22/20 33394-QPTS SKIN LESIONS, 2 TO 4 12/10/19 95625-SWDK SKIN LESIONS, 2 TO 4 09/27/20 19802-PRHV SKIN LESIONS, 2 TO 4 06/17/20 79970-TGYK SKIN LESIONS, 2 TO 4 04/04/20 25 56730-PEWZ SKIN LESIONS, 2 TO 4 01/12/20 07063-OLLO SKIN LESIONS, 2 TO 4 10/08/20 24 19518-NSGL SKIN LESIONS, 2 TO 4 07/02/20 24 10321-PPNG SKIN LESIONS, 2 TO 4 04/20/20 24 43377-SXIV SKIN LESIONS, 2 TO 4 02/13/20 24 39657-KMGP SKIN LESIONS, 2 TO 4 10/28/19 24 Next Appt Details Provider Name:Mckinley Salgado , 09/30/2025 09:00:00 AM, [address] [place], [address], Insurance Providers Payer Name Payer Address Payer Phone Subscriber Number Group Number Insured Name Patient Relationship to Insured Coverage Start Date Coverage End Date [employer] Medicare [employer]vantage [address] [facility] [place] [address] [phone] [id number] Brannon Canela Self - patient is the insured 4 Medical (General) History Medical History History ICD Code Cataracts Crohns disease Arthritis Cholesterol Hypertension Thyroid type II diabetes Surgical History Surgery Date(Month/Year) appendectomy 2009 eye surgery - eyelidectomy 2010 [place] cataract surgery 10/23/22,11/06/22
[2025-08-31 08:28] VITALS: BP 97/78; PULSE 68; O2SAT 97; BMI 37.8
--- NOTE | 2025-08-31 08:28 | MHC.OFFVIS ---
Vital Signs 08/31/25 08:28 Height 5 ft 9 in Weight 255 lb 11.779 oz BMI 37.8 BP 97/78 Blood Pressure Location Lt brachial Position Sitting Pulse 68 Pulse Source Pulse Oximeter Pulse Oximetry (%) 97 Oxygen Delivery Method Room Air Intake Visit Reasons: 3 Months Accompanied by: Self / Same As Patient Allergies NSAIDS (Non-Steroidal Anti-Inflamma Adverse Reaction (Unknown, Verified 08/31/25 08:28) rectal bleeding HPI HPI 3 Months: Details: Pain is better controlled on duloxetine. He sleeps more. Wakes up by 9:30am rather than 6am. is concerned that his short memory has been affected by duloxetine. Physical Exam Vital Signs: Last Vital Signs Pulse 68 08/31/25 08:28 BP 97/78 08/31/25 08:28 Pulse Ox 97 08/31/25 08:28 Oxygen Delivery Method Room Air 08/31/25 08:28 BMI result Body Mass Index 37.8 Const Other: General: Comfortable Skin: No lesions seen MSK: No tender joint. No knee effusion. Bilateral knee flexion 100 degrees. Assessment & Plan Assessment & Plan (1) Osteoarthritis of right knee: Comment: Improved pain and function with duloxetine 60 mg daily but his has been noticing that he has short term memory loss. Rheumatology history: Failed cortisone injection (b/l 09/2024), R 12/2024) and Euflexxa R 01/2025-02/2025. Duloxetine 03/2025- Code(s): M17.11 - Unilateral primary osteoarthritis, right knee Category: Medical Qualifiers: Osteoarthritis type: primary Qualified Code(s): M17.11 - Unilateral primary osteoarthritis, right knee Plan: We discussed tapering off of duloxetine and trialing off of it to see if his memory loss is related to drug side effect He will reduce duloxetine to 30 mg daily for 1 month then discontinue Requesting [facility] We discussed considering geniculate nerve block as next step for pain management. He will call office if knee pain is uncontrolled. I will then refer him to pain management. Return to clinic in 3 months Orders: Orders Creatinine Today Z79.899 - Other nursing home (current) drug therapy Coding Level of Care Code Est Pt Level 3 (21255) Complex EM visit Add On G2211 Diagnoses Primary osteoarthritis of right knee M17.11 Osteoarthritis type: primary
== END 2025-08-31 08:54 | disposition home or self-care (01) ==
LOC: HO.RHES 08:19
PROVIDERS: PCP Internal Medicine; Visit Provider Internal Medicine Rheumatology
DX: M17.11 Unilateral primary osteoarthritis, right knee (principal)
CPT/HCPCS: 99213; G2211